=== PATIENT | female | born 1940 | race Caucasian/White ===

== ENCOUNTER 2020-11-02 15:52 | Outpatient (RCR) | payer MEDICARE, OTHER, SELFPAY | END 2020-11-02 23:59 | LOC: IMMUN 15:52 | PROVIDERS: PCP Family Medicine; Referring Provider Family Medicine; Visit Provider Family Medicine | DX: Z23 Encounter for immunization (principal) | CPT/HCPCS: 0011A; 0012A; 91301 ==

== ENCOUNTER 2021-07-09 13:05 | Inpatient (IN) | payer MEDICARE, OTHER, SELFPAY ==
[2021-07-09] VITALS (9 sets, daily range): BP systolic 130–173; BP diastolic 63–96; PULSE 62–93; RESP 14–20; TEMP 36.7–36.8; O2SAT 93–98; BMI 40.4; BMI 42.2
--- NOTE | 2021-07-09 14:29 | EKG12_ITS ---
Test Reason : BLOODY STOOL Blood Pressure : / mmHG Vent. Rate : 081 BPM Atrial Rate : 300 BPM P-R Int : 000 ms QRS Dur : 106 ms QT Int : 400 ms P-R-T Axes : 000 100 018 degrees QTc Int : 464 ms Atrial fibrillation Nonspecific ST abnormality , probably digitalis effect Abnormal ECG Confirmed by AMADOR MENDOZA, VINICIUS ([id number]), newspaper managing editor TAVO WINTER ([id number]) on 07/15/2021 9:46:14 A M Referred By: SOPHIE Confirmed By:NARDA ENGLISH MD
--- NOTE | 2021-07-09 14:29 | CT_ITS ---
STUDY: CT ABDOMEN AND PELVIS WITH CONTRAST REASON FOR EXAM: Female, 81 years old. Abdominal pain -- IV PO Contrast RADIATION DOSAGE (If Supplied By Facility): CTDIvol = ( 17.47 ) mGy, DLP = ( 1155.71 ) mGycm TECHNIQUE: Transaxial images were obtained from the dome of the diaphragm to the symphysis pubis with oral contrast. Oral and amp; IV Gastrografin and amp; 100mL Isovue-370 was administered. Sagittal and coronal images were reconstructed. Individualized dose optimization techniques were used for this CT. COMPARISON: None. FINDINGS: Lung bases are clear. Heart size is normal. 6 mm low-attenuation lesion in the right lobe of the liver. This is too small to characterize. The liver is otherwise unremarkable. The gallbladder is surgically absent. Solitary splenic granuloma. The spleen is otherwise unremarkable. Pancreas is unremarkable. The adrenal glands are normal. 1.1 cm right renal lesion, not adequately characterized due to motion artifact. The kidneys are otherwise unremarkable. No stones or hydronephrosis. The aorta is normal in caliber. There is no free fluid, free air or organized collection. No bowel obstruction or inflammatory change. Urinary bladder is unremarkable. Normal abdominal wall. Normal osseous structures. CT/Abdomen/Pelvis WITH Contrast IMPRESSION: 1. No acute findings. 2. Hepatic hypodensity too small to characterize. 3. Old granulomatous disease. Electronically Signed: Jing Sousa MD at 17:24 EDT Tel , Service support ,
--- NOTE | 2021-07-09 14:36 | ED.VIS.GI ---
HPI HPI - GI History of Present Illness Chief Complaint: GI Bleed Informant: patient Abdominal Pain/Flank Pain Onset: Yesterday Context: Gradual Onset Timing: Intermittent Quality: Cramping Location: Diffuse Worsened by: Nothing Relieved by: Nothing Nausea/Vomiting/Emesis GI Symptom: Positive for Nausea; Negative for Vomiting Onset: Yesterday Diarrhea/Melena/Hematochezia GI Symptom: Positive for Diarrhea, Melena and Hematochezia Onset: Yesterday Stool Quality: Positive for Black and BRB per rectum Episodes: 8 Associated Symptoms Associated Symptoms: Negative for Dysuria, Frequency and Hematuria Narrative Narrative: Presents with gastrointestinal bleeding that began yesterday. Patient states she started with black stools yesterday. Patient states today they have been become more bright red. Patient states she has had 7-8 episodes today. Patient admits to some nausea and a decreased appetite. Patient admits to some mild diffuse cramping of her abdomen. Patient states it is intermittent. Patient states it does not last very long. Patient states nothing makes it better and nothing makes it worse. Patient denies any urinary complaints. Patient denies any back pain. Patient denies any chest pain or shortness of breath. [facility] Medical History (Updated 07/09/21 @ 17:[address] Roddy Kennedy, DO) Adrenal adenoma Atrial fibrillation Chronic anticoagulation BELLE (dyspnea on exertion) GERD (gastroesophageal reflux disease) Hyperlipidemia Hypertension RAVEN (obstructive sleep apnea) Osteoarthritis Pulmonary HTN Recurrent UTI Home Medications ascorbic acid (vitamin C) 500 mg PO DAILY 07/09/21 [History Last Taken 07/09/21] cholecalciferol (vitamin D3) 125 mcg PO DAILY 07/09/21 [History Last Taken 07/09/21] cranberry 400 mg PO DAILY 07/09/21 [History Last Taken 07/09/21] diltiazem HCl 120 mg PO BID 07/09/21 [History Last Taken 07/09/21] furosemide 40 mg PO DAILY 07/09/21 [History Last Taken 07/09/21] losartan 25 mg PO DAILY 07/09/21 [History Last Taken 07/09/21] metoprolol tartrate 100 mg PO DAILY 07/09/21 [History Last Taken 07/09/21] multivitamin 1 tab PO DAILY 07/09/21 [History Last Taken 07/09/21] pantoprazole 40 mg PO DAILY 07/09/21 [History Last Taken 07/09/21] rivaroxaban [Xarelto] 20 mg PO DINNER 07/09/21 [History Last Taken 07/08/21] spironolactone 25 mg PO DAILY 07/09/21 [History Last Taken 07/09/21] Allergy/AdvReac Type Severity Reaction Status Date / Time No Known Allergies Allergy Verified 07/09/21 13:09 Family History Father Irregular heart rhythm Mother Alzheimer's dementia Surgical History (Updated 07/09/21 @ 17:30 by Kyaw PENNINGTON) Aortic valve replaced H/O section H/O total knee replacement Status post right knee replacement Social History (Updated 07/09/21 @ 17:31 by Kyaw PENNINGTON) household members: spouse Smoking Status: Never smoker alcohol intake: never substance use type: does not use ROS ROS ED Constitutional Constitutional ED: Denies chills or fever(s) Eyes Eyes: Denies blurry vision or change in vision ENT ENT ED: Denies rhinorrhea or sore throat Cardiovascular Cardiovascular: Denies chest pain or palpitations Respiratory/Chest Respiratory/Chest: Denies cough or dyspnea Gastrointestinal Gastrointestinal: Reports abdominal pain, diarrhea, melena and nausea; Denies vomiting Genitourinary Genitourinary ED: Denies dysuria or hematuria Musculoskeletal Musculoskeletal: Denies back pain or neck pain Integumentary Denies abscess or rash Neurologic Neurologic: Denies headache(s) or weakness Allergic/Immunologic Allergic/Immunologic ED: Denies mouth swelling or urticaria EXAM Physical Exam Const Vital Signs: 07/09/21 13:06 07/09/21 14:22 07/09/21 16:00 Temperature 98.1 F Temperature Source Temporal Pulse Rate 62 72 85 Respiratory Rate 20 H 19 H 20 H Blood Pressure 136/83 H 149/84 H Blood Pressure Mean 100 105 Pulse Ox 98 96 95 Oxygen Delivery Method Room Air Room Air Room Air Positive well nourished, well developed and obese General Appearance ED: well developed Nutritional Appearance: obese HEENT Reports moist mucous membranes Neck supple and no JVD Resp normal respiratory effort and clear to auscultation bilaterally Cardio regular rate and no murmurs Rhythm: abnormal rhythm irregularly irregular GI normal to inspection, nondistended, normoactive bowel sounds Palpation: soft and tender epigastric and RUQ; Negative for guarding or rebound tenderness present Extremity normal to inspection General Extremety ED: Negative for edema or tenderness General Extremity: Negative for edema Neuro oriented x3, CN's II-XII intact bilaterally and no sensory deficits noted Sensorium / Orientation: alert Motor Exam: strength 5/5 throughout Psych mental status grossly normal Skin no rashes or lesions noted MDM MDM MDM Narrative Medical decision making narrative: Patient was given Zofran here. EKG was obtained. On my interpretation, it shows atrial fibrillation with a rate of 81. QRS interval and QTc intervals are normal. [place] is normal. There are nonspecific ST-T wave changes in lead III and V1. CBC shows a hemoglobin of 11.5 and hematocrit 35.9. Platelets were normal. Comprehensive metabolic profile showed a slightly elevated BUN of 20. Urinalysis does not show any evidence of urinary tract infection. CT scan of the abdomen and pelvis was obtained. There are no acute findings. There is a small hepatic hypodensity that is too small to characterize and old granulomatous disease. This was interpreted by the radiologist and reviewed by myself. Case was discussed with the hospitalist. She will admit the patient to her service. Patient understood and was agreeable with the plan. All questions were answered. Lab Data Attestation: I reviewed the patient's lab results. Labs: Laboratory Results - last 24 hr 07/09/21 07/09/21 07/09/21 13:44 13:44 14:23 WBC 10.2 RBC 3.78 L Hgb 11.5 L Hct 35.9 L MCV 95.0 MCH 30.4 MCHC 32.0 RDW Std Deviation 46.9 H RDW Coeff of Madeleine 13.5 Plt Count 331 MPV 9.9 Immature Gran % (Auto) 0.500 Neut % (Auto) 76.8 H Lymph % (Auto) 12.3 L [place] % (Auto) 8.2 Eos % (Auto) 1.3 Baso % (Auto) 0.9 Absolute Neuts (auto) 7.8 H Absolute Lymphs (auto) 1.25 Nucleated RBC % 0 Sodium Cancelled 140 Potassium Cancelled 4.0 Chloride Cancelled 104 Carbon Dioxide Cancelled 31.0 Anion Gap Cancelled 5 BUN Cancelled 20 H Creatinine Cancelled 0.98 Estim Creat Clear Calc Cancelled 64.48 Est GFR (MDRD) Af Amer Cancelled 70 Est GFR (MDRD) Non-Af Cancelled 58 L BUN/Creatinine Ratio Cancelled 20.5 H Glucose Cancelled 100 Calcium Cancelled 9.2 Total Bilirubin Cancelled 0.70 AST Cancelled 22 ALT Cancelled 15 Alkaline Phosphatase Cancelled 106 Total Protein Cancelled 7.4 Albumin Cancelled 3.3 Globulin Cancelled 4.1 Albumin/Globulin Ratio Cancelled 0.8 L Urine Color Urine Clarity Urine pH Ur Specific [place] Urine Protein Urine Glucose (UA) Urine Ketones Urine Occult Blood Urine Nitrite Urine Bilirubin Urine Urobilinogen Ur Leukocyte Esterase Urine RBC Urine WBC Ur Squamous Epith Cells Urine Bacteria Urine Mucus 07/09/21 15:10 WBC RBC Hgb Hct MCV MCH MCHC RDW Std Deviation RDW Coeff of Madeleine Plt Count MPV Immature Gran % (Auto) Neut % (Auto) Lymph % (Auto) [place] % (Auto) Eos % (Auto) Baso % (Auto) Absolute Neuts (auto) Absolute Lymphs (auto) Nucleated RBC % Sodium Potassium Chloride Carbon Dioxide Anion Gap BUN Creatinine Estim Creat Clear Calc Est GFR (MDRD) Af Amer Est GFR (MDRD) Non-Af BUN/Creatinine Ratio Glucose Calcium Total Bilirubin AST ALT Alkaline Phosphatase Total Protein Albumin Globulin Albumin/Globulin Ratio Urine Color Yellow Urine Clarity Sl. Cloudy Urine pH 6.5 Ur Specific [place] 1.010 Urine Protein 15 H Urine Glucose (UA) Normal Urine Ketones 5 H Urine Occult Blood 25 H Urine Nitrite Negative Urine Bilirubin Negative Urine Urobilinogen Normal Ur Leukocyte Esterase Negative Urine RBC 0-5 SEEN Urine WBC 0 SEEN Ur Squamous Epith Cells 0-5 SEEN Urine Bacteria 1+ Urine Mucus 0 SEEN Radiography Diagnostic Testing: Radiology Impression Abdomen/Pelvis CT 07/09/21 14:29 IMPRESSION: 1. No acute findings. 2. Hepatic hypodensity too small to characterize. 3. Old granulomatous disease. Electronically Signed: Jing Sousa MD at 17:24 EDT Tel , Service support , EKG Initial EKG: Attestation: I personally reviewed and interpreted this EKG as follows: Interpretation: Atrial Fibrillation (81) and Non-Specific ST Changes Prior EKG tracings: not available for review Treatment and Re-Evaluation Vital Sign Attestation:: Vital signs were reviewed prior to admission. They are stable. Discharge Plan Triage Chief Complaint: GI Bleed Other Complaint: Diarrhea ED Provider: Roddy Kennedy Dx/Rx/DC Orders Clinical Impression: GI bleed, Atrial fibrillation Prescriptions: No Action metoprolol tartrate 100 mg tablet 100 mg PO DAILY RF: 0 spironolactone 25 mg tablet 25 mg PO DAILY RF: 0 pantoprazole 40 mg tablet,delayed release (DR/EC) 40 mg PO DAILY RF: 0 losartan 25 mg tablet 25 mg PO DAILY RF: 0 cranberry 400 mg Capsule 400 mg PO DAILY RF: 0 diltiazem HCl 120 mg capsule,extended release 24hr 120 mg PO BID RF: 0 furosemide 20 mg tablet 40 mg PO DAILY RF: 0 cholecalciferol (vitamin D3) 125 mcg (5,000 unit) capsule 125 mcg PO DAILY RF: 0 Xarelto 20 mg tablet 20 mg PO DINNER RF: 0 multivitamin Tablet 1 tab PO DAILY RF: 0 ascorbic acid (vitamin C) 500 mg Tablet 500 mg PO DAILY RF: 0 Primary Care Provider: Tucker Staples Referrals: Tucker Staples MD [Primary Care Provider] - Disposition Disposition: Acute Care Hospital [facility], [place]
[2021-07-09 14:38] LABS: Absolute Lymphocyte Count 1.25 X10^3/uL (0.83-4.51); Absolute Neutrophil Count 7.8 X10^3/uL (2.0-7.7); Basophil# 0.09 X10^3/uL; Basophil% 0.9 % (0-1); Eosinophil# 0.13 X10^3/uL; Eosinophils% 1.3 % (0-5); Hematocrit 35.9 % (37-47); Hemoglobin 11.5 g/dL (12.0-15.0); Lymphocyte # 1.25 X10^3/ul (0.83-4.51); Lymphocyte % 12.3 % (19-41); Mean Corpuscular Hgb 30.4 pg (27.0-32.0); Mean Platelet Vol. 9.9 fl (6.2-12.0); Monocyte# 0.84 X10^3/uL; Monocyte% 8.2 % (0-10); NRBC Flagged by Analyzer 0 % (0-5); Neutrophil # 7.84 X10^3/uL (2.7-7.7); Neutrophil % 76.8 % (47-70); Platelet Count 331 K/mm3 (150-450); RBC Distribution Width CV 13.5 % (11.6-14.6); RBC Distribution Width SD 46.9 fl (35.1-43.9); Red Blood Count 3.78 M/mm3 (4.2-5.4); White Blood Count 10.2 K/mm3 (4.4-11.0)
--- NOTE | 2021-07-09 14:39 | NURSING ---
NO OLD EKGS
--- NOTE | 2021-07-09 14:41 | NURSING ---
CHEMISTRIES HEMOLIZED
[2021-07-09] MEDS: Ondansetron 4 MG/2 ML Vial IV (14:48)
[2021-07-09 15:05] LABS: ALB/GLOB Ratio 0.8 RATIO (0.9-2.4); AST(SGOT) 22 U/L (15-37); Alanine Aminotransfer ALT/SGPT 15 U/L (13-56); Albumin, Serum 3.3 g/dL (3.2-5.0); Alkaline Phosphatase 106 U/L (45-117); Anion Gap 5 (5-15); BUN 20 mg/dL (7-18); BUN/Creat Ratio 20.5 RATIO (10-20); Calcium,Total 9.2 mg/dL (8.5-10.1); Chloride 104 mmol/L (98-107); Creatinine, Serum 0.98 mg/dL (0.55-1.02); EST Glomerular Filtration Rate 58 mL/min (>60); Est Glom Filt Rate - Afr Amer 70 mL/min (>60); Estimated Creatinine Clearance 64.48 ml/min; Globulin 4.1 g/dL (2.2-4.2); Glucose 100 mg/dL (74-106); Protein, Total 7.4 g/dL (6.4-8.2); Sodium Level 140 mmol/L (136-145)
[2021-07-09 15:18] LABS: Mucous, Urine 0 SEEN /hpf (<or=2+); White Blood Cells 0 SEEN /hpf (0-5)
[2021-07-09 15:21] LABS: Color, Urine Yellow (Yellow); Glucose, Dipstick Normal (Normal); Ketone-Dipstick 5 mg/dl (Negative); Leukocyte Esterase-Dipstick Negative /ul (Negative); Nitrite-Dipstick Negative (Negative); Occult Blood-Urine 25 /ul (Negative); Protein-Dipstick 15 mg/dl (Negative); Urine Bilirubin Dipstick Negative (Negative); Urine Clarity Sl. Cloudy (Clear); Urine Urobilinogen Normal (Normal); Urine pH 6.5 (5.0 - 8.0)
[2021-07-09 15:27] LABS: Bacteria 1+ /hpf (None Seen); Red Blood Cells-Urine 0-5 SEEN /hpf (0-5); Squamous Epithelial Cells - UA 0-5 SEEN /hpf (5-10)
--- NOTE | 2021-07-09 17:20 | PCM.HP.STD ---
Documented by User: Kyaw PENNINGTON 07/09/21 17:51 HPI - General General Date of Service: 07/09/21 Chief Complaint: Blood bowel movements HPI Narrative JAGDEEP WHYTE is an 81-year-old female who presents to the ED at [facility] on 07/09/2021 with a chief complaint of bloody bowel movements. Patient reports that her symptoms began yesterday where she noted that she had about 3-4 bloody bowel movements. Patient reports dark tarry stools and bright red blood per rectum. Patient notes that she had about 3-4 bloody bowel movements of the same consistency today. Patient denies any prior history of bloody bowel movements. Patient denies any alleviating or aggravating symptoms. Patient denies any hematemesis, chest pain or shortness of breath. Of note, patient recently returned from a bus tour of the [facility] where they were traveling by bus and staying in hotel. Denies camping, backpacking or drinking from streams. Vital signs in the ED are BP 149/84, HR of 85, RR of 20 and is currently satting 95% on room air. WBCs are currently 10, hemoglobin is currently 11.5 and platelets are currently 331. BMP is unremarkable. UA is unremarkable. CT of the abdomen/pelvis demonstrated no acute findings. Patient was given Zofran in the ED. [facility] Medical History Adrenal adenoma Atrial fibrillation Chronic anticoagulation BELLE (dyspnea on exertion) GERD (gastroesophageal reflux disease) Hyperlipidemia Hypertension RAVEN (obstructive sleep apnea) Osteoarthritis Pulmonary HTN Recurrent UTI Home Medications ascorbic acid (vitamin C) 500 mg PO DAILY 07/09/21 [History Last Taken 07/09/21] cholecalciferol (vitamin D3) 125 mcg PO DAILY 07/09/21 [History Last Taken 07/09/21] cranberry 400 mg PO DAILY 07/09/21 [History Last Taken 07/09/21] diltiazem HCl 120 mg PO BID 07/09/21 [History Last Taken 07/09/21] furosemide 40 mg PO DAILY 07/09/21 [History Last Taken 07/09/21] losartan 25 mg PO DAILY 07/09/21 [History Last Taken 07/09/21] metoprolol tartrate 100 mg PO DAILY 07/09/21 [History Last Taken 07/09/21] multivitamin 1 tab PO DAILY 07/09/21 [History Last Taken 07/09/21] pantoprazole 40 mg PO DAILY 07/09/21 [History Last Taken 07/09/21] rivaroxaban [Xarelto] 20 mg PO DINNER 07/09/21 [History Last Taken 07/08/21] spironolactone 25 mg PO DAILY 07/09/21 [History Last Taken 07/09/21] Allergy/AdvReac Type Severity Reaction Status Date / Time No Known Allergies Allergy Verified 07/09/21 13:09 Family History Father Irregular heart rhythm Mother Alzheimer's dementia Surgical History Aortic valve replaced H/O section H/O total knee replacement Status post right knee replacement Social History (Updated 07/09/21 @ 17:31 by Kyaw PENNINGTON) household members: spouse Smoking Status: Never smoker alcohol intake: never substance use type: does not use ROS Constitutional Constitutional: Denies anorexia, change in weight, chills, fatigue, fever(s), malaise, night sweats, weakness or other Eyes Eyes: Denies blurry vision, change in eye color, change in vision, discharge from eye(s), double vision, erythema, eye pain, loss of vision or other ENT HEENT: Denies abnormal hearing, dysphagia, ear pain, epistaxis, headache(s), hearing loss, nasal congestion, nasal discharge, post nasal drip, sinus pressure, sore throat or other Cardiovascular Cardiovascular: Denies chest pain, claudication, dyspnea on exertion, edema, lightheadedness, orthopnea, palpitations, paroxysmal nocturnal dyspnea, rapid heart rate, syncope or other Respiratory/Chest Respiratory/Chest: Denies cough, dyspnea, excessive phlegm production, hemoptysis, productive cough, shortness of breath at rest, shortness of breath with exertion, wheezing or other Gastrointestinal Gastrointestinal: Reports diarrhea, hematochezia, melena and nausea; Denies abdominal pain, coffee ground emesis, constipation, dyspepsia, hematemesis, loose stools, vomiting or other Genitourinary Genitourinary: Denies burning urination, difficulty urinating, dysuria, hematuria, nocturia, urinary frequency, urinary hesitancy, urinary incontinence, urinary urgency or other Musculoskeletal Musculoskeletal: Denies arthralgias, back pain, joint pain, joint stiffness, joint swelling, myalgias, neck pain or other Neurologic Neurologic: Denies abnormal gait, abnormal speech, confusion, disequilibrium, dizziness, focal weakness, headache(s), numbness, paresthesias, seizure-like activity, seizures, syncope, tingling, tremor(s) or other Psychiatric Psychiatric: Denies anxiety, depression, homicidal ideation, suicidal ideation or other Endocrine Endocrinology: Denies change in body appearance, cold intolerance, excessive sweating, heat intolerance, polydipsia, polyuria or other Hematologic/Lymphatic Hematologic/Lymphatic: Denies anemia, easy bleeding, easy bruising, lymphadenopathy or other Allergic/Immunologic Allergic/Immunologic: Denies rhinitis, hives, eczemia, asthma or other Vital Signs Vital Signs Vital Signs: 07/09/21 13:06 07/09/21 14:22 07/09/21 16:00 Temperature 98.1 F Temperature Source Temporal Pulse Rate 62 72 85 Respiratory Rate 20 H 19 H 20 H Blood Pressure 136/83 H 149/84 H Blood Pressure Mean 100 105 Pulse Ox 98 96 95 Oxygen Delivery Method Room Air Room Air Room Air Weight Weight: 200 lb Body Mass Index (BMI) 40.4 Physical Exam Const alert and oriented x3 General Appearance: cooperative HEENT normocephalic, head/scalp atraumatic and hearing grossly normal bilaterally Eyes PERRL, EOMs intact bilaterally and conjunctivae normal Neck no lymphadenopathy, supple and no JVD Resp normal respiratory effort, no retractions, no use of accessory muscles and clear to auscultation bilaterally Cardio regular rate, regular rhythm, no murmurs and no JVD GI normal to inspection, nondistended, normoactive bowel sounds, soft to palpation and non-tender Extremity normal to inspection, full ROM and no clubbing, cyanosis or edema Skin no rashes or lesions noted, no wounds, skin turgor normal and no jaundice Neuro CN's II-XII intact bilaterally Psych affect normal Results Lab / Micro Data Result Diagrams: 07/09/21 13:44 07/09/21 14:23 Labs: Laboratory Results - last 24 hr 07/09/21 13:44: WBC 10.2, RBC 3.78 L, Hgb 11.5 L, Hct 35.9 L, MCV 95.0, MCH 30.4, MCHC 32.0, RDW Std Deviation 46.9 H, RDW Coeff of Madeleine 13.5, Plt Count 331, MPV 9.9, Immature Gran % (Auto) 0.500, Neut % (Auto) 76.8 H, Lymph % (Auto) 12.3 L, [place] % (Auto) 8.2, Eos % (Auto) 1.3, Baso % (Auto) 0.9, Absolute Neuts (auto) 7.8 H, Absolute Lymphs (auto) 1.25, Nucleated RBC % 0 07/09/21 13:44: Sodium Cancelled, Potassium Cancelled, Chloride Cancelled, Carbon Dioxide Cancelled, Anion Gap Cancelled, BUN Cancelled, Creatinine Cancelled, Estim Creat Clear Calc Cancelled, Est GFR (MDRD) Af Amer Cancelled, Est GFR (MDRD) Non-Af Cancelled, BUN/Creatinine Ratio Cancelled, Glucose Cancelled, Calcium Cancelled, Total Bilirubin Cancelled, AST Cancelled, ALT Cancelled, Alkaline Phosphatase Cancelled, Total Protein Cancelled, Albumin Cancelled, Globulin Cancelled, Albumin/Globulin Ratio Cancelled 07/09/21 14:23: Sodium 140, Potassium 4.0, Chloride 104, Carbon Dioxide 31.0, Anion Gap 5, BUN 20 H, Creatinine 0.98, Estim Creat Clear Calc 64.48, Est GFR (MDRD) Af Amer 70, Est GFR (MDRD) Non-Af 58 L, BUN/Creatinine Ratio 20.5 H, Glucose 100, Calcium 9.2, Total Bilirubin 0.70, AST 22, ALT 15, Alkaline Phosphatase 106, Total Protein 7.4, Albumin 3.3, Globulin 4.1, Albumin/Globulin Ratio 0.8 L 07/09/21 15:10: Urine Color Yellow, Urine Clarity Sl. Cloudy, Urine pH 6.5, Ur Specific [place] 1.010, Urine Protein 15 H, Urine Glucose (UA) Normal, Urine Ketones 5 H, Urine Occult Blood 25 H, Urine Nitrite Negative, Urine Bilirubin Negative, Urine Urobilinogen Normal, Ur Leukocyte Esterase Negative, Urine RBC 0-5 SEEN, Urine WBC 0 SEEN, Ur Squamous Epith Cells 0-5 SEEN, Urine Bacteria 1+, Urine Mucus 0 SEEN Assessment & Plan Assessment/Plan (1) GI bleed: PLAN: Patient is an 81-year-old female who presents to the ED at [facility] on 07/09/21 with a chief complaint of bloody bowel movements. Patient will be admitted for suspected lower GI bleed. 1) GI bleed Patient presents with a 2-day history of bloody bowel movements, patient reports between the past 2 days she has had between 8 and 10 bloody bowel movements. Denies any history of upper or lower GI bleeds. Patient reports that she had an endoscopy 15 years ago which did not find anything. Patient's vital signs are stable and patient does not appear hemodynamically compromised. Hemoglobin is 11.5, no prior history to compare to. CT of the abdomen/pelvis was unremarkable. Plan; admit to [facility], GI consult ordered, clear liquid diet ordered, CBC and BMP in a.m., serial H&H's, PT/OT eval, case management consult ordered, no endoscopy at this time, stool panel ordered. 2) atrial fibrillation Patient is on diltiazem and metoprolol for rate control. Anticoagulated on Xarelto. Continue diltiazem and metoprolol, hold Xarelto. 3) CHF, unclear whether systolic or diastolic Not in acute exacerbation, currently satting 95% on room air. Patient is on metoprolol, losartan and Lasix. Continue home BP regimen. 4) HTN Continue metoprolol, losartan, Lasix and spironolactone. Hold parameters ordered DVT prophylaxis - not indicated Patient seen by Kyaw Sánchez PA-C, under the supervision of Dr. Leavitt Documented by User: Dr. Veronica Leavitt MD 07/09/21 20:06 HPI - General General Date of Admission: 07/09/21 [facility] Medical History Adrenal adenoma Atrial fibrillation Chronic anticoagulation BELLE (dyspnea on exertion) GERD (gastroesophageal reflux disease) Hyperlipidemia Hypertension RAVEN (obstructive sleep apnea) Osteoarthritis Pulmonary HTN Recurrent UTI Home Medications ascorbic acid (vitamin C) 500 mg PO DAILY 07/09/21 [History Last Taken 07/09/21] cholecalciferol (vitamin D3) 125 mcg PO DAILY 07/09/21 [History Last Taken 07/09/21] cranberry 400 mg PO DAILY 07/09/21 [History Last Taken 07/09/21] diltiazem HCl 120 mg PO BID 07/09/21 [History Last Taken 07/09/21] furosemide 40 mg PO DAILY 07/09/21 [History Last Taken 07/09/21] losartan 25 mg PO DAILY 07/09/21 [History Last Taken 07/09/21] metoprolol tartrate 100 mg PO DAILY 07/09/21 [History Last Taken 07/09/21] multivitamin 1 tab PO DAILY 07/09/21 [History Last Taken 07/09/21] pantoprazole 40 mg PO DAILY 07/09/21 [History Last Taken 07/09/21] rivaroxaban [Xarelto] 20 mg PO DINNER 07/09/21 [History Last Taken 07/08/21] spironolactone 25 mg PO DAILY 07/09/21 [History Last Taken 07/09/21] Allergy/AdvReac Type Severity Reaction Status Date / Time No Known Allergies Allergy Verified 07/09/21 13:09 Family History Father Irregular heart rhythm Mother Alzheimer's dementia Surgical History Aortic valve replaced H/O section H/O total knee replacement Status post right knee replacement Social History (Updated 07/09/21 @ 17:31 by Kyaw PENNINGTON) household members: spouse Smoking Status: Never smoker alcohol intake: never substance use type: does not use Results Lab / Micro Data Result Diagrams: 07/09/21 13:44 07/09/21 14:23
--- NOTE | 2021-07-09 17:58 | EX.PCM.CON.G ---
HPI Consult Data Date of Consult: 07/09/21 HPI Narrative HPI Narrative: JAGDEEP WHYTE, is a 81 F who presents with gastrointestinal bleeding that began yesterday. Patient states she started with black stools yesterday. Patient states today they have been become more bright red. Patient states she has had 7-8 episodes today. Patient admits to some nausea and a decreased appetite. She has a history of atrial fibrillation and takes Xarelto therapy. She also takes vitamin C on a daily basis. She has had a normal colonoscopy in the past. She has no personal history of adenomatous polyps. Patient admits to some mild diffuse cramping of her abdomen. Patient states it is intermittent. Patient states it does not last very long. Patient states nothing makes it better and nothing makes it worse. Patient denies any urinary complaints. Patient denies any back pain. Patient denies any chest pain or shortness of breath. Her hemoglobin was 11.5 on admission. She had a CT scan abdomen pelvis. The findings are: 6 mm low-attenuation lesion in the right lobe of the liver. This is too small to characterize. The liver is otherwise unremarkable. The gallbladder is surgically absent. Solitary splenic granuloma. The spleen is otherwise unremarkable. Pancreas is unremarkable. The adrenal glands are normal. 1.1 cm right renal lesion, not adequately characterized due to motion artifact. The kidneys are otherwise unremarkable. No stones or hydronephrosis. The aorta is normal in caliber. There is no free fluid, free air or organized collection. No bowel obstruction or inflammatory change. Urinary bladder is unremarkable. Normal abdominal wall. Normal osseous structures. . [facility] Medical History (Updated 07/09/21 @ 17:[address] Roddy Kennedy, DO) Adrenal adenoma Atrial fibrillation Chronic anticoagulation BELLE (dyspnea on exertion) GERD (gastroesophageal reflux disease) Hyperlipidemia Hypertension RAVEN (obstructive sleep apnea) Osteoarthritis Pulmonary HTN Recurrent UTI Home Medications ascorbic acid (vitamin C) 500 mg PO DAILY 07/09/21 [History Last Taken 07/09/21] cholecalciferol (vitamin D3) 125 mcg PO DAILY 07/09/21 [History Last Taken 07/09/21] cranberry 400 mg PO DAILY 07/09/21 [History Last Taken 07/09/21] diltiazem HCl 120 mg PO BID 07/09/21 [History Last Taken 07/09/21] furosemide 40 mg PO DAILY 07/09/21 [History Last Taken 07/09/21] losartan 25 mg PO DAILY 07/09/21 [History Last Taken 07/09/21] metoprolol tartrate 100 mg PO DAILY 07/09/21 [History Last Taken 07/09/21] multivitamin 1 tab PO DAILY 07/09/21 [History Last Taken 07/09/21] pantoprazole 40 mg PO DAILY 07/09/21 [History Last Taken 07/09/21] rivaroxaban [Xarelto] 20 mg PO DINNER 07/09/21 [History Last Taken 07/08/21] spironolactone 25 mg PO DAILY 07/09/21 [History Last Taken 07/09/21] Allergy/AdvReac Type Severity Reaction Status Date / Time No Known Allergies Allergy Verified 07/09/21 13:09 Family History Father Irregular heart rhythm Mother Alzheimer's dementia Surgical History (Updated 07/09/21 @ 17:30 by Kyaw PENNINGTON) Aortic valve replaced H/O section H/O total knee replacement Status post right knee replacement Social History (Updated 07/09/21 @ 17:31 by Kyaw PENNINGTON) household members: spouse Smoking Status: Never smoker alcohol intake: never substance use type: does not use ROS Review of Systems ROS Unobtainable: other Constitutional Constitutional: Denies fatigue, fever(s), poor appetite, weight gain or weight loss ENT HEENT: Denies mouth lesions Cardiovascular Cardiovascular: Denies abdominal bloating, abdominal edema or abdominal pain Respiratory/Chest Respiratory/Chest: Denies change in mental status, change in phlegm color, chest congestion or chest tightness Gastrointestinal Gastrointestinal: Denies belching, bloating, change in bowel habits, change in stool character, chewing difficulty, coffee ground emesis, constipation, cramping, diarrhea, dyspepsia, dysphagia, early satiety, excessive flatus, fecal incontinence, heartburn, hematemesis, hematochezia, hemorrhoids, loose stools, melena, nausea, odynophagia, rectal bleeding, tenesmus, vomiting or weight changes Genitourinary Genitourinary: Denies abdominal discomfort, burning urination or itching Musculoskeletal Musculoskeletal: Reports as per HPI; Denies muscle weakness or myalgias Integumentary Integumentary: Denies jaundice Neurologic Neurologic: Denies lack of coordination or weakness Psychiatric Psychiatric: Denies confusion, depression, memory loss, mood swings, paranoia or suicidal ideation Endocrine Endocrinology: Denies systems reviewed and no addt'l complaints, except as documented Hematologic/Lymphatic Hematologic/Lymphatic: Denies anemia, easy bleeding, easy bruising or lymphadenopathy Allergic/Immunologic Allergic/Immunologic: Denies systems reviewed and no addt'l complaints, except as documented Physical Exam Const alert General Appearance: cooperative Orientation / Consciousness: oriented to person HEENT hearing grossly normal bilaterally Head and Scalp: normal to inspection Face and Sinus: face symmetric Nose: external nose normal Mouth: oral and palatal mucosa normal Eyes conjunctivae normal General Eye: normal appearance of both eyes Neck full ROM General: normal visual inspection Lymph Lymphatic: no lymphadenopathy noted Chest inspection of chest normal and palpation of chest normal Chest: symmetrical chest wall rise Resp normal respiratory effort Effort and Inspection: able to speak in complete sentences Cardio regular rate GI non-distended Percussion: normal to percussion Rectal Exam: deferred Neuro Speech: speech normal Gait (Neuro): normal gait Lab / Micro Data Result Diagrams: 07/09/21 13:44 07/09/21 14:23 Labs: Laboratory Results - last 24 hr 07/09/21 13:44: WBC 10.2, RBC 3.78 L, Hgb 11.5 L, Hct 35.9 L, MCV 95.0, MCH 30.4, MCHC 32.0, RDW Std Deviation 46.9 H, RDW Coeff of Madeleine 13.5, Plt Count 331, MPV 9.9, Immature Gran % (Auto) 0.500, Neut % (Auto) 76.8 H, Lymph % (Auto) 12.3 L, [place] % (Auto) 8.2, Eos % (Auto) 1.3, Baso % (Auto) 0.9, Absolute Neuts (auto) 7.8 H, Absolute Lymphs (auto) 1.25, Nucleated RBC % 0 07/09/21 13:44: Sodium Cancelled, Potassium Cancelled, Chloride Cancelled, Carbon Dioxide Cancelled, Anion Gap Cancelled, BUN Cancelled, Creatinine Cancelled, Estim Creat Clear Calc Cancelled, Est GFR (MDRD) Af Amer Cancelled, Est GFR (MDRD) Non-Af Cancelled, BUN/Creatinine Ratio Cancelled, Glucose Cancelled, Calcium Cancelled, Total Bilirubin Cancelled, AST Cancelled, ALT Cancelled, Alkaline Phosphatase Cancelled, Total Protein Cancelled, Albumin Cancelled, Globulin Cancelled, Albumin/Globulin Ratio Cancelled 07/09/21 14:23: Sodium 140, Potassium 4.0, Chloride 104, Carbon Dioxide 31.0, Anion Gap 5, BUN 20 H, Creatinine 0.98, Estim Creat Clear Calc 64.48, Est GFR (MDRD) Af Amer 70, Est GFR (MDRD) Non-Af 58 L, BUN/Creatinine Ratio 20.5 H, Glucose 100, Calcium 9.2, Total Bilirubin 0.70, AST 22, ALT 15, Alkaline Phosphatase 106, Total Protein 7.4, Albumin 3.3, Globulin 4.1, Albumin/Globulin Ratio 0.8 L 07/09/21 15:10: Urine Color Yellow, Urine Clarity Sl. Cloudy, Urine pH 6.5, Ur Specific [place] 1.010, Urine Protein 15 H, Urine Glucose (UA) Normal, Urine Ketones 5 H, Urine Occult Blood 25 H, Urine Nitrite Negative, Urine Bilirubin Negative, Urine Urobilinogen Normal, Ur Leukocyte Esterase Negative, Urine RBC 0-5 SEEN, Urine WBC 0 SEEN, Ur Squamous Epith Cells 0-5 SEEN, Urine Bacteria 1+, Urine Mucus 0 SEEN Radiology Impression Abdomen/Pelvis CT 07/09/21 14:29 IMPRESSION: 1. No acute findings. 2. Hepatic hypodensity too small to characterize. 3. Old granulomatous disease. Electronically Signed: Jing Sousa MD at 17:24 EDT Tel , Service support , Assessment & Plan Assessment/Plan (1) GI bleed: PLAN: The differential diagnosis for lower GI bleed in a older woman would be diverticular, stercoral ulcer, ischemic colitis and less likely upper GI bleed rapid transit. She should get CBCs or H&H's every 6 hours. I would hold her Xarelto. If she does continue to drop she may need a flexible sigmoidoscopy. As of now she seems to be clinically stable. She will be observed. Recommend SCDs for DVT prophylaxis. I will continue to follow the patient. Thank you very much for allowing me to precipitate in care of patient. (2) Atrial fibrillation: Charges/Coding Visit Charges Inpatient E&M: 65407 Init Hosp L2
--- NOTE | 2021-07-09 18:02 | NURSING ---
PCU WHITE GASTROINTESTIONAL BLEEDING
[2021-07-09 20:42] LABS: Hematocrit 34.2 % (37-47); Hemoglobin 10.9 g/dL (12.0-15.0)
[2021-07-09] MEDS: Metoprolol Tartrate 100 MG Tablet PO (21:38)
[2021-07-09] MEDS: dilTIAZem CD 120 MG Capsule PO (21:38)
[2021-07-09] MEDS: Pantoprazole Sodium 40 MG Tablet PO (21:38)
[2021-07-09] MEDS: 0.9% Normal Saline 1,000 ML 100 ML IV (21:39)
[2021-07-10] VITALS (9 sets, daily range): BP systolic 123–139; BP diastolic 66–75; PULSE 72–87; RESP 14–16; TEMP 36.5–36.8; O2SAT 94–97
[2021-07-10 00:47] LABS: Hematocrit 31.2 % (37-47); Hemoglobin 9.9 g/dL (12.0-15.0)
[2021-07-10] MEDS: 0.9% Normal Saline 1,000 ML 100 ML IV ×2 (05:39→15:25)
[2021-07-10 07:12] LABS: Absolute Lymphocyte Count 1.18 X10^3/uL (0.83-4.51); Absolute Neutrophil Count 5.7 X10^3/uL (2.0-7.7); Basophil# 0.06 X10^3/uL; Basophil% 0.7 % (0-1); Eosinophil# 0.27 X10^3/uL; Eosinophils% 3.3 % (0-5); Hematocrit 31.8 % (37-47); Lymphocyte # 1.18 X10^3/ul (0.83-4.51); Lymphocyte % 14.4 % (19-41); Mean Corp Hgb Conc 31.4 g/dL (32-36); Mean Corpuscular Hgb 29.9 pg (27.0-32.0); Mean Corpuscular Volume 94.9 fL (81-99); Mean Platelet Vol. 9.1 fl (6.2-12.0); Monocyte# 0.91 X10^3/uL; Monocyte% 11.1 % (0-10); NRBC Flagged by Analyzer 0 % (0-5); Neutrophil # 5.72 X10^3/uL (2.7-7.7); Platelet Count 285 K/mm3 (150-450); RBC Distribution Width CV 13.5 % (11.6-14.6); RBC Distribution Width SD 47.2 fl (35.1-43.9); Red Blood Count 3.35 M/mm3 (4.2-5.4); White Blood Count 8.2 K/mm3 (4.4-11.0)
[2021-07-10 07:50] LABS: ALB/GLOB Ratio 0.8 RATIO (0.9-2.4); AST(SGOT) 18 U/L (15-37); Alanine Aminotransfer ALT/SGPT 12 U/L (13-56); Albumin, Serum 2.7 g/dL (3.2-5.0); Alkaline Phosphatase 87 U/L (45-117); Anion Gap 6 (5-15); BUN 14 mg/dL (7-18); BUN/Creat Ratio 19.4 RATIO (10-20); Calcium,Total 8.6 mg/dL (8.5-10.1); Chloride 107 mmol/L (98-107); Creatinine, Serum 0.72 mg/dL (0.55-1.02); EST Glomerular Filtration Rate 83 mL/min (>60); Est Glom Filt Rate - Afr Amer 100 mL/min (>60); Estimated Creatinine Clearance 66.87 ml/min; Globulin 3.5 g/dL (2.2-4.2); Glucose 86 mg/dL (74-106); Potassium 3.5 mmol/L (3.5-5.1); Protein, Total 6.2 g/dL (6.4-8.2); Sodium Level 139 mmol/L (136-145)
[2021-07-10] MEDS: Metoprolol Tartrate 100 MG Tablet PO ×2 (09:30→22:15)
[2021-07-10] MEDS: Spironolactone 25 MG Tablet PO (09:30)
[2021-07-10] MEDS: dilTIAZem CD 120 MG Capsule PO ×2 (09:45→22:14)
[2021-07-10] MEDS: Pantoprazole Sodium 40 MG Tablet PO ×2 (09:45→22:13)
[2021-07-10] MEDS: Losartan Potassium 25 MG Tablet PO (09:45)
--- NOTE | 2021-07-10 11:13 | CASEMGMT ---
Assessment- SW completed assessment with patient. She was sitting up in her chair. SW also confirmed address and phone number. Living situation- Patient lives with her in a 1 story home with 3 entry steps. PCP: Dr Staples Specialists: Dr Luciano-Cardiology at [facility] Pharmacy: [facility]. She has prescription coverage. DME: shower chair, cane, and walker ADL's/IADL's: Patient is independent in all ADL's and IADL's Past SNF/rehab: None Past HH: Yes. She does not remember the agency LW: Yes. She is aware it is not on file. POA: Yes. She is aware it is not on file. Her Mark is her HCPOA. Plan: Patient does not anticipate she will need anything at discharge. She said she feels fine. RN CAROLYN and SUNDEEP available should she have d/c needs. July Ruvalcaba OVERHEAD DOOR TECHNICIAN JO ANN
--- NOTE | 2021-07-10 16:54 | PCM.PN.HOSP ---
Subjective Subjective Patient admitted with lower GI bleed. Initially black stool and then turned to bright red. Patient on Xarelto. Denies prior episode of GI bleed. Patient had colonoscopy about 10 years ago and was normal. Objective Data Objective Data Vital Signs: Vital Signs Temp Pulse Resp BP Pulse Ox 98.1 F 81 16 128/74 H 94 07/10/21 15:15 07/10/21 15:15 07/10/21 15:15 07/10/21 15:15 07/10/21 15:15 Oxygen Delivery Method Room Air Weight: 211 lb 10.3 oz Body Mass Index (BMI) 42.2 Intake & Output: Intake and Output for Last 24 Hours 07/08/21 07/09/21 07/10/21 23:59 23:59 23:59 Intake Total 2476.67 / 2476.67 Balance 2476.67 / 2476.67 Lab / Micro Data Result Diagrams: 07/10/21 06:15 07/10/21 06:15 Labs: Laboratory Results - last 24 hr 07/09/21 19:42: Hgb 10.9 L, Hct 34.2 L 07/10/21 00:35: Hgb 9.9 L, Hct 31.2 L 07/10/21 06:15: WBC 8.2, RBC 3.35 L, Hgb 10.0 L, Hct 31.8 L, MCV 94.9, MCH 29.9, MCHC 31.4 L, RDW Std Deviation 47.2 H, RDW Coeff of Madeleine 13.5, Plt Count 285, MPV 9.1, Immature Gran % (Auto) 0.500, Neut % (Auto) 70.0, Lymph % (Auto) 14.4 L, [place] % (Auto) 11.1 H, Eos % (Auto) 3.3, Baso % (Auto) 0.7, Absolute Neuts (auto) 5.7, Absolute Lymphs (auto) 1.18, Nucleated RBC % 0 07/10/21 06:15: Sodium 139, Potassium 3.5, Chloride 107, Carbon Dioxide 26.0, Anion Gap 6, BUN 14, Creatinine 0.72, Estim Creat Clear Calc 66.87, Est GFR (MDRD) Af Amer 100, Est GFR (MDRD) Non-Af 83, BUN/Creatinine Ratio 19.4, Glucose 86, Calcium 8.6, Total Bilirubin 0.60, AST 18, ALT 12 L, Alkaline Phosphatase 87, Total Protein 6.2 L, Albumin 2.7 L, Globulin 3.5, Albumin/Globulin Ratio 0.8 L Radiography Diagnostic Testing: Radiology Impression Abdomen/Pelvis CT 07/09/21 14:29 IMPRESSION: 1. No acute findings. 2. Hepatic hypodensity too small to characterize. 3. Old granulomatous disease. Electronically Signed: Jing Sousa MD at 17:24 EDT Tel , Service support , Physical Exam Narrative General: Alert, Oriented x3, Cooperative HEENT: Atraumatic, PERRLA, EOMI, Normocephalic Oral: No Gingival or Mucosal Lesions/ Ulcerations Neck: Supple, No JVD, Negative Carotid Bruits Lungs: Air entry diminished in bilateral lung bases. No crepitation/rhonchi Cardiovascular: Sinus rhythm with PVCs normal S1, Normal S2, aortic click or prior valve replacement Abdomen: Bowel Sounds Present, Soft, Non Tender, Non-Distended : No renal angle tenderness. No suprapubic tenderness. Extremities: No edema, Capillary Refill Less than 3 Seconds Skin: No rashes, No breakdown Musculoskeletal: No Tenderness to Palpation of Joints or Extremities Neurological: Cranial nerves II-XII grossly intact, DTR 2+/4 and Symmetrical, Neuro grossly intact Psych/Mental Status: Normal Affect, Appropriate. Assessment & Plan Assessment/Plan (1) GI bleed: QUALIFIERS: GI bleed type/associated pathology: unspecified gastrointestinal hemorrhage type Qualified Code(s): K92.2 - Gastrointestinal hemorrhage, unspecified PLAN: 1. Acute GI Bleed with acute Blood Loss Anemia: Patient here in PCU. Xarelto on hold. Patient also has history of bioprosthetic AVR. Seen by GI. Patient did not had any bloody bowel movement today. Exact etiology unclear for possible diverticular bleed or possibly to Xarelto. Hemoglobin is stable at 10 g%. Discussed with the GI. If she again rebleeds, plan for flexible sigmoidoscopy 2. Paroxysmal A. fib: On diltiazem and metoprolol. Xarelto on hold. 3. CHF, patient not in exacerbation. Continue metoprolol losartan, spironolactone and Lasix home regimen. 4. Hypertension: Blood pressure is good. As mentioned above 5. Incidental 6 mm low-attenuation lesion right liver lobe: The nodule is too small to characterize. Charges/Coding Visit Charges Inpatient E&M: 79345 Subs Hosp L2
--- NOTE | 2021-07-10 22:38 | EX.PCM.PN.GI ---
Subjective Subjective Patient was admitted on due to a lower GI bleed. Objective Data Objective Data Vital Signs: Vital Signs Temp Pulse Resp BP Pulse Ox 98.3 F 84 16 139/75 H 97 07/10/21 22:06 07/10/21 22:15 07/10/21 22:06 07/10/21 22:15 07/10/21 22:06 Oxygen Delivery Method Room Air Weight: 211 lb 10.3 oz Body Mass Index (BMI) 42.2 Intake & Output: Intake and Output for Last 24 Hours 07/08/21 07/09/21 07/10/21 23:59 23:59 23:59 Intake Total 2476.67 / 2476.67 Balance 2476.67 / 2476.67 Lab / Micro Data Result Diagrams: 07/10/21 06:15 07/10/21 06:15 Labs: Laboratory Results - last 24 hr 07/10/21 00:35: Hgb 9.9 L, Hct 31.2 L 07/10/21 06:15: WBC 8.2, RBC 3.35 L, Hgb 10.0 L, Hct 31.8 L, MCV 94.9, MCH 29.9, MCHC 31.4 L, RDW Std Deviation 47.2 H, RDW Coeff of Madeleine 13.5, Plt Count 285, MPV 9.1, Immature Gran % (Auto) 0.500, Neut % (Auto) 70.0, Lymph % (Auto) 14.4 L, [place] % (Auto) 11.1 H, Eos % (Auto) 3.3, Baso % (Auto) 0.7, Absolute Neuts (auto) 5.7, Absolute Lymphs (auto) 1.18, Nucleated RBC % 0 07/10/21 06:15: Sodium 139, Potassium 3.5, Chloride 107, Carbon Dioxide 26.0, Anion Gap 6, BUN 14, Creatinine 0.72, Estim Creat Clear Calc 66.87, Est GFR (MDRD) Af Amer 100, Est GFR (MDRD) Non-Af 83, BUN/Creatinine Ratio 19.4, Glucose 86, Calcium 8.6, Total Bilirubin 0.60, AST 18, ALT 12 L, Alkaline Phosphatase 87, Total Protein 6.2 L, Albumin 2.7 L, Globulin 3.5, Albumin/Globulin Ratio 0.8 L Physical Exam Const alert General Appearance: cooperative Orientation / Consciousness: oriented to person HEENT hearing grossly normal bilaterally Head and Scalp: normal to inspection Face and Sinus: face symmetric Nose: external nose normal Mouth: oral and palatal mucosa normal Eyes conjunctivae normal General Eye: normal appearance of both eyes Neck full ROM General: normal visual inspection Lymph Lymphatic: no lymphadenopathy noted Chest inspection of chest normal and palpation of chest normal Chest: symmetrical chest wall rise Resp normal respiratory effort Effort and Inspection: able to speak in complete sentences Cardio regular rate GI non-distended Percussion: normal to percussion Rectal Exam: deferred Neuro Speech: speech normal Gait (Neuro): normal gait Assessment & Plan Assessment/Plan (1) GI bleed: QUALIFIERS: GI bleed type/associated pathology: unspecified gastrointestinal hemorrhage type Qualified Code(s): K92.2 - Gastrointestinal hemorrhage, unspecified PLAN: GI bleed is likely secondary to diverticular bleed. There is a possibility that could be an upper GI bleed rapid transit. However she did not have any pain or tenesmus. And initially was black stool associated with constipation. That makes it more likely that it was a diverticular bleed or stercoral ulcer bleed. (2) Atrial fibrillation: PLAN: She is not a candidate for anticoagulation at this time. She will need to hold anticoagulation for least 2 weeks.
--- NOTE | 2021-07-10 23:54 | PCS.PANDOC ---
PANDEMIC DOCUMENTATION INITIATED: Date: 05/20/2021 Time: 190
[2021-07-11] VITALS (8 sets, daily range): BP systolic 101–129; BP diastolic 60–72; PULSE 67–88; RESP 16; TEMP 36.8–36.9; O2SAT 94–98
[2021-07-11] MEDS: Pantoprazole Sodium 40 MG Tablet PO (09:21)
[2021-07-11] MEDS: Metoprolol Tartrate 100 MG Tablet PO (09:21)
[2021-07-11] MEDS: Losartan Potassium 25 MG Tablet PO (09:21)
[2021-07-11] MEDS: dilTIAZem CD 120 MG Capsule PO (09:21)
--- NOTE | 2021-07-11 11:28 | DCINST_ITS ---
Discharge Instructions Diet Discharge Diet: Soft diet (Soft diet for 3 days) Activity Discharge Activity: Return to Normal Activity Weight Bearing Status: Weight bearing as tolerated Dressing / Incision Call your doctor if you observe: Fever of 101 or Higher, Coldness, Increased Pain, Numbness or Tingling, Change in Color, Inability to urinate, Inability to have a bowel movement, Using more than 1 pad per hour, Shortness of breath, Dizziness, Fainting spells, Swelling in the ankles, Chest pain, Prolonged hiccupping, Increased palpitations (irregular heartbeat), Calf discomfort and Uncontrolled pain Follow Up Care Test Results: Test results from this visit will be discussed in further detail at your follow-up appointment, if applicable. Discharge Plan Admission Admit Date/Time: 07/09/21 17:41 Primary Reason for Your Visit: Acute lower GI bleed Attending Provider: López Hernandez Primary Care Provider: Tucker Staples Consulting Providers: Bubba Polo Instructions Additional Instructions / Restrictions: Patient advised to talk to the her graduate internship Dr. Luciano about lower GI bleed most probably due to diverticulosis and holding up Xarelto for 2 weeks and then resume Xarelto or change it to Eliquis. Discharge Orders/Prescriptions Prescriptions: Continued metoprolol tartrate 100 mg tablet 100 mg PO DAILY RF: 0 spironolactone 25 mg tablet 25 mg PO DAILY RF: 0 pantoprazole 40 mg tablet,delayed release (DR/EC) 40 mg PO DAILY RF: 0 losartan 25 mg tablet 25 mg PO DAILY RF: 0 cranberry 400 mg Capsule 400 mg PO DAILY RF: 0 diltiazem HCl 120 mg capsule,extended release 24hr 120 mg PO BID RF: 0 furosemide 20 mg tablet 40 mg PO DAILY RF: 0 cholecalciferol (vitamin D3) 125 mcg (5,000 unit) capsule 125 mcg PO DAILY RF: 0 multivitamin Tablet 1 tab PO DAILY RF: 0 ascorbic acid (vitamin C) 500 mg Tablet 500 mg PO DAILY RF: 0 Xarelto 20 mg tablet 20 mg PO DINNER Qty: 0 RF: 0 Referrals / Follow Up: Tucker Staples MD [Primary Care Provider] - In 1 Week (For lower GI bleed) Bubba Polo DO [STAFF PHYSICIAN] - Within 2 Weeks (For lower GI bleed for diverticulosis) Disposition Disposition (needs filled in before D/C Order can be placed): Home, Self Care
--- NOTE | 2021-07-11 11:46 | CASEMGMT ---
Pt has been independent in the room and states no concerns with going home at discharge. Kallie SWAIN CM
--- NOTE | 2021-07-11 11:49 | PCM.DC.SUM ---
Providers Date of Admission: 07/09/21 Primary Care Physician: Dr. Tucker Staples MD Consultations 07/09/21 18:29 Consult: Gastroenterology Routine Consulting Provider: MelaniBubba Reason for Consult: GI bleed EMERGENT Consult: No MD Notified: Yes Date Notified: 07/09/21 Time Notified: 17:43 Method of Notification: called Reason For Visit: ACUTE GI BLEED ON ANTICOAGULATION,ACUTE BLOOD LOSS Diagnosis Discharge Diagnosis (1) GI bleed: Status: Acute Code(s): K92.2 - Gastrointestinal hemorrhage, unspecified Qualifiers: GI bleed type/associated pathology: unspecified gastrointestinal hemorrhage type Qualified Code(s): K92.2 - Gastrointestinal hemorrhage, unspecified (2) Atrial fibrillation: Status: Acute Code(s): I48.91 - Unspecified atrial fibrillation Medications at Discharge Home Medications ascorbic acid (vitamin C) 500 mg PO DAILY 07/09/21 cholecalciferol (vitamin D3) 125 mcg PO DAILY 07/09/21 cranberry 400 mg PO DAILY 07/09/21 diltiazem HCl 120 mg PO BID 07/09/21 furosemide 40 mg PO DAILY 07/09/21 losartan 25 mg PO DAILY 07/09/21 metoprolol tartrate 100 mg PO DAILY 07/09/21 multivitamin 1 tab PO DAILY 07/09/21 pantoprazole 40 mg PO DAILY 07/09/21 spironolactone 25 mg PO DAILY 07/09/21 Xarelto 20 mg PO DINNER #0 tab 07/11/21 Hospital Course Summary of Care Provided Hospital Course: This 81-year-old female was admitted with bloody bowel movement for 1 day prior to admission. 3-4 bowel movements per day. Did not any abdominal pain. 1. Acute GI Bleed with acute Blood Loss Anemia: Patient was admitted in PCU. Xarelto on hold. Patient also has history of bioprosthetic AVR. Seen by GI. Patient did not had any bloody bowel movement during the hospital course. Exact etiology unclear for possible diverticular bleed or possibly to Xarelto. Hemoglobin is stable at 10 g%. Discussed with the GI and most likely diverticular bleed. Advised to hold Xarelto for 2 weeks and follow-up junior programmer analyst before resumption. Advised soft diet for 3 days 2. Paroxysmal A. fib: On diltiazem and metoprolol. Xarelto on hold. 3. CHF, patient not in exacerbation. Continue metoprolol losartan, spironolactone and Lasix home regimen. 4. Hypertension: Blood pressure is good. As mentioned above 5. Incidental 6 mm low-attenuation lesion right liver lobe: The nodule is too small to characterize. Discharge medication reconciliation done. Discharge follow-up instructions completed. Discharge process discussed with the patient and all questions were answered to patient's satisfaction. Total time spent, exact 35 minutes on discharge meds reconciliation, examination, coordination of care with nurses and ancillary staff, review of imaging and blood test and discussion with the patient on follow-up instructions Physical Exam Narrative Seen and examined. Patient did not had any GI bleed while in the hospital. H&H is stable. General: Alert, Oriented x3, Cooperative HEENT: Atraumatic, PERRLA, EOMI, Normocephalic Oral: No Gingival or Mucosal Lesions/ Ulcerations Neck: Supple, No JVD, Negative Carotid Bruits Lungs: Air entry diminished in bilateral lung bases. No crepitation/rhonchi Cardiovascular: Sinus rhythm with PVCs normal S1, Normal S2, aortic click or prior valve replacement Abdomen: Bowel Sounds Present, Soft, Non Tender, Non-Distended : No renal angle tenderness. No suprapubic tenderness. Extremities: No edema, Capillary Refill Less than 3 Seconds Skin: No rashes, No breakdown Musculoskeletal: No Tenderness to Palpation of Joints or Extremities Neurological: Cranial nerves II-XII grossly intact, DTR 2+/4 and Symmetrical, Neuro grossly intact Psych/Mental Status: Normal Affect, Appropriate. Weight / BMI Weight Weight: 212 lb 8.41 oz Body Mass Index (BMI) 42.2 ABG / Lab / Microbiology Data Result Diagrams: 07/10/21 06:15 07/10/21 06:15 D/C Instructions Discharge Diet: Soft diet (Soft diet for 3 days) Weight Bearing Status: Weight bearing as tolerated Call your doctor if you observe: Fever of 101 or Higher, Coldness, Increased Pain, Numbness or Tingling, Change in Color, Inability to urinate, Inability to have a bowel movement, Using more than 1 pad per hour, Shortness of breath, Dizziness, Fainting spells, Swelling in the ankles, Chest pain, Prolonged hiccupping, Increased palpitations (irregular heartbeat), Calf discomfort and Uncontrolled pain Meaningful Use Info Meaningful Use Diagnoses (Choose all that apply): None applicable Discharge Plan Admission Admit Date/Time: 07/09/21 17:41 Primary Reason for Your Visit: Acute lower GI bleed Attending Provider: López Hernandez Primary Care Provider: Tucker Staples Consulting Providers: Bubba Polo Instructions Additional Instructions / Restrictions: Patient advised to talk to the her junior programmer analyst Dr. Luciano about lower GI bleed most probably due to diverticulosis and holding up Xarelto for 2 weeks and then resume Xarelto or change it to Eliquis. Discharge Orders/Prescriptions Prescriptions: Continued metoprolol tartrate 100 mg tablet 100 mg PO DAILY RF: 0 spironolactone 25 mg tablet 25 mg PO DAILY RF: 0 pantoprazole 40 mg tablet,delayed release (DR/EC) 40 mg PO DAILY RF: 0 losartan 25 mg tablet 25 mg PO DAILY RF: 0 cranberry 400 mg Capsule 400 mg PO DAILY RF: 0 diltiazem HCl 120 mg capsule,extended release 24hr 120 mg PO BID RF: 0 furosemide 20 mg tablet 40 mg PO DAILY RF: 0 cholecalciferol (vitamin D3) 125 mcg (5,000 unit) capsule 125 mcg PO DAILY RF: 0 multivitamin Tablet 1 tab PO DAILY RF: 0 ascorbic acid (vitamin C) 500 mg Tablet 500 mg PO DAILY RF: 0 Xarelto 20 mg tablet 20 mg PO DINNER Qty: 0 RF: 0 Referrals / Follow Up: Tucker Staples MD [Primary Care Provider] - In 1 Week (For lower GI bleed) Bubba Polo DO [STAFF PHYSICIAN] - Within 2 Weeks (For lower GI bleed for diverticulosis) Disposition Disposition (needs filled in before D/C Order can be placed): Home, Self Care Charges/Coding Visit Charges Inpatient E&M: 44495 Disch Hosp
== END 2021-07-11 12:45 | disposition home or self-care (01) | DRG 378 ==
LOC: ED 17:57 → PCU 18:09
PROVIDERS: Admitting Provider Family Medicine; Emergency Provider Emergency Medicine; PCP Family Medicine; Visit Provider Internal Medicine
DX: K57.91 Diverticulosis of intestine, part unspecified, without perforation or abscess with bleeding (principal); D62 Acute posthemorrhagic anemia; Z68.41 Body mass index [BMI] 40.0-44.9, adult; I48.0 Paroxysmal atrial fibrillation; I11.0 Hypertensive heart disease with heart failure; I50.9 Heart failure, unspecified; G47.33 Obstructive sleep apnea (adult) (pediatric); E66.01 Morbid (severe) obesity due to excess calories; I27.20 Pulmonary hypertension, unspecified; I35.9 Nonrheumatic aortic valve disorder, unspecified; K21.9 Gastro-esophageal reflux disease without esophagitis; E78.5 Hyperlipidemia, unspecified; Z23 Encounter for immunization; Z79.01 Long term (current) use of anticoagulants; Z95.3 Presence of xenogenic heart valve; Z82.0 Family history of epilepsy and other diseases of the nervous system; Z87.440 Personal history of urinary (tract) infections; Z90.49 Acquired absence of other specified parts of digestive tract; Z96.651 Presence of right artificial knee joint; Z66 Do not resuscitate; R19.7 Diarrhea, unspecified
CPT/HCPCS: 36415; 74177; 80053; 81001; 85014; 85018; 85025; 93005; 99251; 99285; G0008; J7030; Q9967; 90686; A4216; G0463; J2405

== ENCOUNTER 2021-07-18 02:57 | Emergency (ER) | payer MEDICARE, OTHER, SELFPAY ==
[2021-07-18] VITALS (12 sets, daily range): BP systolic 107–133; BP diastolic 59–94; PULSE 71–86; RESP 16–22; TEMP 36.2–36.4; O2SAT 92–99; BMI 36.8
--- NOTE | 2021-07-18 02:59 | CT_ITS ---
We are attempting to reach an attending provider to discuss findings. An addendum with communication details will be sent when the communication is complete. HISTORY: Neuro deficit, acute, stroke suspected TECHNIQUE: Routine carotid CT angiogram protocol was performed with IV contrast. In addition, images were obtained of the [place]. Nascet criteria using the distal ICAs for comparison were used for evaluation of stenoses. 2-D and 3-D reconstructions were reviewed. A radiation dose optimization technique was used for this scan. IV Contrast dosage and agent: 100 mL [id number] COMPARISON: Concurrent unenhanced head CT FINDINGS: --NECK: AORTIC ARCH AND BRANCHES: Calcified plaque with no aneurysm, dissection, occlusion or significant stenosis. RIGHT CCA: No occlusion, significant stenosis or dissection. RIGHT ICA: No occlusion, significant stenosis or dissection. LEFT CCA: No occlusion, significant stenosis or dissection. LEFT ICA: No occlusion, significant stenosis or dissection. RIGHT VERTEBRAL ARTERY: No occlusion, significant stenosis or dissection. LEFT VERTEBRAL ARTERY: No occlusion, significant stenosis or dissection. NECK SOFT TISSUES: Small, benign right tonsillar calcifications (tonsiliths). LUNG APICES: Mild scattered air-trapping. BONES: Multilevel discogenic degenerative changes along cervical spine with no fracture or high-grade spinal canal stenosis. Status post sternotomy. --HEAD: --Anterior circulation: ICAs: No significant stenosis at the intracranial/visualized segments. ACAs: No significant stenosis at the visualized segments. ACOM: Present. MCAs: Occluded right middle cerebral artery. Left middle cerebral artery is patent with no significant stenosis. --Posterior circulation: PCOMs: Patent on the right. Nonvisualized on the left. long distance billing operator: No significant stenosis at the visualized segments. BASILAR ARTERY: No significant stenosis. VERTEBRAL ARTERIES: No significant stenosis at the intradural/visualized segments. Dominant left vertebral artery. No evidence of intracranial aneurysm or vascular malformation. CT/STROKE CTA Head AND Neck W/Con IMPRESSION: Occluded right middle cerebral artery. Individualized dose optimization techniques were used for this CT. at 0334 Reported and signed by: Tucker Swift MD Electronically Signed: Tucker Swift MD at 3:33 EDT Tel , Service support ,
--- NOTE | 2021-07-18 02:59 | CT_ITS ---
HISTORY: Neuro deficit, acute, stroke suspected EXAMINATION: CT Head Stroke Protocol W/O Contrast Injection TECHNIQUE: Multiple axial images were obtained of the brain without intravenous contrast. A radiation dose optimization technique was used for this scan. IV Contrast dosage and agent: None. COMPARISON: None FINDINGS: BRAIN PARENCHYMA: Increased attenuation along proximal right middle cerebral artery compatible with dense MCA sign of acute thrombus. No intra- or extra-axial hemorrhage. No intracranial mass or mass effect. Bilateral deep and subcortical cerebral white matter lucencies. Chronic involutional changes are noted. CSF SPACES: Prominent cerebral sulci secondary to involutional changes. No hydrocephalus. Basal cisterns are patent. Intracranial atherosclerotic calcifications. CALVARIUM, SKULL BASE, PARANASAL SINUSES AND MASTOID AIR CELLS: Intact calvarium. Left maxillary sinus mucosal thickening. Mastoid air cells are well pneumatized. ORBITS: Postop cataract surgery bilaterally. CT/STROKE Brain/Head without Cont IMPRESSION: 1. 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 No intracranial hemorrhage or edema. 2. Chronic small vessel ischemic changes. Individualized dose optimization techniques were used for this CT. at 0316 Reported and signed by: Tucker Swift MD N.B. : The above Results were Read Back by Tucker Swift MD to Dr. Jennifer MD, and understanding confirmed on 07/18/2021 03:14:41 (ET). Electronically Signed: Tucker Swift MD at 3:15 EDT Tel , Service support ,
--- NOTE | 2021-07-18 02:59 | EKG12_ITS ---
Test Reason : STROKE Blood Pressure : / mmHG Vent. Rate : 088 BPM Atrial Rate : 094 BPM P-R Int : 000 ms QRS Dur : 122 ms QT Int : 412 ms P-R-T Axes : 000 108 032 degrees QTc Int : 498 ms Atrial fibrillation Right bundle branch block Abnormal ECG Confirmed by EMILIA MENDOZA, LEONARDO ([id number]), clinical editor TAVO WINTER ([id number]) on 07/23/2021 6:43:07 AM Referred By: EN Confirmed By:LEONARDO NIETO MD
--- NOTE | 2021-07-18 03:19 | ED.RN ---
Dr. Rodriguez called stroke transfer line while patient was in CT. Dr. Rodriguez doing doc to doc
--- NOTE | 2021-07-18 03:28 | ED.RN ---
delay in CT due patient being a very difficult IV start
[2021-07-18 03:33] LABS: Absolute Lymphocyte Count 1.12 X10^3/uL (0.83-4.51); Absolute Neutrophil Count 8.7 X10^3/uL (2.0-7.7); Basophil# 0.05 X10^3/uL; Basophil% 0.5 % (0-1); Eosinophil# 0.14 X10^3/uL; Eosinophils% 1.3 % (0-5); Hematocrit 32.1 % (37-47); Hemoglobin 10.5 g/dL (12.0-15.0); Lymphocyte # 1.12 X10^3/ul (0.83-4.51); Lymphocyte % 10.4 % (19-41); Mean Corp Hgb Conc 32.7 g/dL (32-36); Mean Corpuscular Hgb 30.3 pg (27.0-32.0); Mean Corpuscular Volume 92.8 fL (81-99); Mean Platelet Vol. 8.8 fl (6.2-12.0); Monocyte# 0.75 X10^3/uL; Monocyte% 6.9 % (0-10); NRBC Flagged by Analyzer 0 % (0-5); Neutrophil # 8.71 X10^3/uL (2.7-7.7); Neutrophil % 80.6 % (47-70); Platelet Count 271 K/mm3 (150-450); RBC Distribution Width CV 13.8 % (11.6-14.6); RBC Distribution Width SD 46.5 fl (35.1-43.9); Red Blood Count 3.46 M/mm3 (4.2-5.4); White Blood Count 10.8 K/mm3 (4.4-11.0)
--- NOTE | 2021-07-18 03:33 | EDS_ITS ---
HPI History of Present Illness Chief Complaint: Neuro S/Sx Informant: patient, spouse/S.O. and EMS Narrative Narrative: 81-year-old female arriving by EMS with a chief complaint of stroke. Prehospital stroke team was called. tells me that she was recently in the hospital with a GI bleed. She has atrial fibrillation and her Xarelto was stopped. She has not yet resumed it. They went to bed at around 2330 hrs. awoke to find her phone bleed in the sheets when he called out to her noticed that her speech was off. He then called EMS and they transported her here. The patient notes slurred speech facial droop left arm and leg weakness. EMS notes a blood sugar of 130. states that she has not had any further bleeding. [facility] Medical History Adrenal adenoma Atrial fibrillation Chronic anticoagulation BELLE (dyspnea on exertion) GERD (gastroesophageal reflux disease) GI bleed Hyperlipidemia Hypertension RAVEN (obstructive sleep apnea) Osteoarthritis Pulmonary HTN Recurrent UTI Home Medications ascorbic acid (vitamin C) 500 mg PO DAILY 07/09/21 [History Last Taken 07/09/21] cholecalciferol (vitamin D3) 125 mcg PO DAILY 07/09/21 [History Last Taken 07/09/21] cranberry 400 mg PO DAILY 07/09/21 [History Last Taken 07/09/21] diltiazem HCl 120 mg PO BID 07/09/21 [History Last Taken 07/09/21] furosemide 40 mg PO DAILY 07/09/21 [History Last Taken 07/09/21] losartan 25 mg PO DAILY 07/09/21 [History Last Taken 07/09/21] metoprolol tartrate 100 mg PO DAILY 07/09/21 [History Last Taken 07/09/21] multivitamin 1 tab PO DAILY 07/09/21 [History Last Taken 07/09/21] pantoprazole 40 mg PO DAILY 07/09/21 [History Last Taken 07/09/21] spironolactone 25 mg PO DAILY 07/09/21 [History Last Taken 07/09/21] Allergy/AdvReac Type Severity Reaction Status Date / Time No Known Allergies Allergy Verified 07/18/21 03:01 Family History Father Irregular heart rhythm Mother Alzheimer's dementia Surgical History Aortic valve replaced H/O section H/O total knee replacement Status post right knee replacement Social History household members: spouse Smoking Status: Never smoker alcohol intake: never substance use type: does not use ROS ROS ED Constitutional Constitutional ED: Denies chills or weight loss Eyes Eyes: Denies change in vision or diplopia ENT ENT ED: Denies ear pain, rhinorrhea or sore throat Cardiovascular Cardiovascular: Denies chest pain, orthopnea, palpitations or racing heartbeat Respiratory/Chest Respiratory/Chest: Denies cough, dyspnea or orthopnea Gastrointestinal Gastrointestinal: Denies abdominal pain, diarrhea, nausea or vomiting Genitourinary Genitourinary ED: Denies dysuria, hematuria or urinary frequency Musculoskeletal Musculoskeletal: Denies arthralgias or myalgias Integumentary Denies abscess or rash Neurologic Neurologic: Reports weakness; Denies headache(s) Psychiatric Psychiatric: Denies anxiety, depression, suicidal ideation or suicidal thoughts Endocrine Endocrinology: Denies polydipsia, polyphagia or polyuria Allergic/Immunologic Allergic/Immunologic ED: Denies mouth swelling, tongue swelling or urticaria EXAM Physical Exam Const Vital Signs: 07/18/21 03:02 07/18/21 03:14 07/18/21 03:21 Temperature 97.2 F L 97.6 F L Temperature Source Oral Temporal Pulse Rate 76 72 Respiratory Rate 22 H 18 Blood Pressure 131/94 H 131/94 H Blood Pressure Mean 106 106 Blood Pressure Source Blood Pressure Position Blood Pressure Location Pulse Ox 94 93 Oxygen Delivery Method Room Air Room Air Room Air Oxygen Flow Rate (L/min) 07/18/21 03:30 07/18/21 03:37 07/18/21 03:47 Temperature Temperature Source Pulse Rate 71 75 Respiratory Rate 20 H 18 Blood Pressure 125/77 H 125/77 H 128/64 H Blood Pressure Mean 93 93 Blood Pressure Source Blood Pressure Position Blood Pressure Location Pulse Ox 94 92 Oxygen Delivery Method Room Air Room Air Oxygen Flow Rate (L/min) 07/18/21 03:51 07/18/21 03:56 07/18/21 04:11 Temperature Temperature Source Pulse Rate 76 80 78 Respiratory Rate 22 H 19 H 20 H Blood Pressure 128/64 H 117/76 117/76 Blood Pressure Mean 85 89 89 Blood Pressure Source Monitor Monitor Monitor Blood Pressure Position Supine Supine Supine Blood Pressure Location Right Arm Right Arm Right Arm Pulse Ox 96 97 99 Oxygen Delivery Method Nasal Cannula Nasal Cannula Nasal Cannula Oxygen Flow Rate (L/min) 2 2 2 07/18/21 04:12 07/18/21 04:26 07/18/21 04:41 Temperature 97.2 F L Temperature Source Pulse Rate 81 79 78 Respiratory Rate 16 17 18 Blood Pressure 117/76 133/61 H 128/59 H Blood Pressure Mean 89 85 82 Blood Pressure Source Monitor Monitor Blood Pressure Position Semi-Fowlers Semi-Fowlers Blood Pressure Location Right Arm Right Arm Pulse Ox 98 98 97 Oxygen Delivery Method Nasal Cannula Nasal Cannula Oxygen Flow Rate (L/min) 2 2 Positive well nourished and well developed General Appearance ED: well developed HEENT Reports normocephalic, head/scalp atraumatic and moist mucous membranes Eyes PERRL and EOMs intact bilaterally Neck no lymphadenopathy, supple and no JVD Resp normal respiratory effort and clear to auscultation bilaterally Cardio regular rate, regular rhythm and no murmurs Rhythm: abnormal rhythm irregularly irregular and other GI normal to inspection, nondistended, normoactive bowel sounds and non-tender Palpation: soft Back/Spine no CVA tenderness and normal ROM Extremity normal to inspection General Extremety ED: Negative for edema General Extremity: Negative for edema Neuro oriented x3 Neuro Narrative: See NIH score below Sensorium / Orientation: alert Psych mental status grossly normal Mood & Affect: Negative for depressed or tearful Skin no rashes or lesions noted and no wounds STROKE Vital Signs/Narrative: Vital Signs Temp Pulse Resp BP Pulse Ox 07/18/21 04:41 78 18 128/59 H 97 07/18/21 04:26 79 17 133/61 H 98 07/18/21 04:12 97.2 F L 81 16 117/76 98 07/18/21 04:11 78 20 H 117/76 99 07/18/21 03:56 80 19 H 117/76 97 07/18/21 03:51 76 22 H 128/64 H 96 07/18/21 03:47 128/64 H 07/18/21 03:37 75 18 125/77 H 92 07/18/21 03:30 71 20 H 125/77 H 94 07/18/21 03:21 97.6 F L 72 18 131/94 H 93 07/18/21 03:02 97.2 F L 76 22 H 131/94 H 94 NIHSS Initial: 1a Level of Consciousness: 0 1b LOC Questions (Score 2 if aphasic/stupor): 0 1c LOC Commands (Only score 1st attempt): 0 3 Visual: 2 4 Facial Palsy: 3 5 Motor Arm Right (UN = amputation/fusion): 0 5 Motor Arm Left: 4 6 Motor Leg Right: 0 6 Motor Leg Left: 4 7 Limb ataxia (Only + if out of proportion): 0 8 Sensory (Aphasia/stupor=0 or 1, coma=2): 2 9 Best Language: 0 10 Dysarthria (mute, coma=2, intubated=UN): 2 11 Extinction and Inattention (only scored if +): 1 Total Score: 18 MDM MDM MDM Narrative Medical decision making narrative: Prehospital stroke team was called. My initial review of the CT demonstrates an acute thrombus in the right middle cerebral artery. I discussed the case with the stroke neurologist on the phone and the recommendation is TPA. Risk benefits are discussed with the and he consents. Stroke neurologist evaluated the patient independently in the room via computer. TPA will be given and the patient will be transferred to [facility] for possible thrombectomy if TPA is not improving. We are working to arrange transport. My interpretation of the chest x-ray is cardiomegaly. No acute process. Lab Data Attestation: I reviewed the patient's lab results. Labs: Laboratory Results - last 24 hr 07/18/21 07/18/21 07/18/21 03:25 03:25 03:25 WBC 10.8 RBC 3.46 L Hgb 10.5 L Hct 32.1 L MCV 92.8 MCH 30.3 MCHC 32.7 RDW Std Deviation 46.5 H RDW Coeff of Madeleine 13.8 Plt Count 271 MPV 8.8 Immature Gran % (Auto) 0.300 Neut % (Auto) 80.6 H Lymph % (Auto) 10.4 L [place] % (Auto) 6.9 Eos % (Auto) 1.3 Baso % (Auto) 0.5 Absolute Neuts (auto) 8.7 H Absolute Lymphs (auto) 1.12 Nucleated RBC % 0 PT 13.2 INR 1.1 APTT 38.7 H Sodium 136 Potassium 3.6 Chloride 99 Carbon Dioxide 29.0 Anion Gap 8 BUN 19 H Creatinine 0.94 Estim Creat Clear Calc 40.53 Est GFR (MDRD) Af Amer 74 Est GFR (MDRD) Non-Af 61 BUN/Creatinine Ratio 20.2 H Glucose 121 H Calcium 8.7 Troponin I High Sens 13 Radiography Diagnostic Testing: Clinical Impression(s) from Imaging Studies Brain CT 07/18/21 02:59 IMPRESSION: 1. 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 No intracranial hemorrhage or edema. 2. Chronic small vessel ischemic changes. Individualized dose optimization techniques were used for this CT. at 0316 Reported and signed by: Tucker Swift MD N.B. : The above Results were Read Back by Tucker Swift MD to Dr. Jennifer MD, and understanding confirmed on 07/18/2021 03:14:41 (ET). Electronically Signed: Tucker Swift MD at 3:15 EDT Tel , Service support , ADDENDUM: 07/18/21 0323 IMPRESSION: 1. 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 No intracranial hemorrhage or edema. 2. Chronic small vessel ischemic changes. Individualized dose optimization techniques were used for this CT. at 0316 Reported and signed by: Tucker Swift MD N.B. : The above Results were Read Back by Tucker Swift MD to Dr. Jennifer MD, and understanding confirmed on 07/18/2021 03:14:41 (ET). Electronically Signed: Tucker Swift MD at 3:15 EDT Tel , Service support , Head/Neck CTA 07/18/21 02:59 IMPRESSION: Occluded right middle cerebral artery. Individualized dose optimization techniques were used for this CT. at 0334 Reported and signed by: Tucker Swift MD Electronically Signed: Tucker Swift MD at 3:33 EDT Tel , Service support , ADDENDUM: 07/18/21 0341 IMPRESSION: Occluded right middle cerebral artery. Individualized dose optimization techniques were used for this CT. at 0334 Reported and signed by: Tucker Swift MD N.B. : The above Results were Read Back by Tucker Swift MD to Azam Rodriguez MD, and understanding confirmed on 07/18/2021 03:34:38 (ET). Electronically Signed: Tucker Swift MD at 3:33 EDT Tel , Service support , Chest X-Ray 07/18/21 04:20 IMPRESSION: Cardiomegaly and atherosclerotic disease. at 0438 Reported and signed by: Tucker Swift MD Electronically Signed: Tucker Swift MD at 4:37 EDT Tel , Service support , EKG Initial EKG: Attestation: I personally reviewed and interpreted this EKG as follows: Comments: Atrial fibrillation with a ventricular rate of 88 bpm noted right bundle branch block which is known. Stroke Documentation Questions Stroke Team Activated: Yes Reviewed Inclusion/Exclusion criteria: Yes Was Patient considered for Endovascular Intervention?: Yes IV Alteplase (t-PA) Administered: Yes No contraindications for IV Alteplase (t-PA) administration.: Yes Alteplase (t-PA) risks, benefits, alternative discussed: Yes Not given: Patient refusal: No Critical Care Time Critical Care Time: Yes Critical care time (excluding procedures): 30-74 minutes (30 min), Including time spent:, Discussing w/Patient &/or Family/Ward Clerk, Discussing w/Consultants, Arranging Admission or Transfer and Performing Direct Patient Care at Bedside Discharge Plan Triage Chief Complaint: Neuro S/Sx ED Provider: Azam Rodriguez Dx/Rx/DC Orders Clinical Impression: Acute ischemic right MCA stroke, Atrial fibrillation Prescriptions: No Action metoprolol tartrate 100 mg tablet 100 mg PO DAILY RF: 0 spironolactone 25 mg tablet 25 mg PO DAILY RF: 0 pantoprazole 40 mg tablet,delayed release (DR/EC) 40 mg PO DAILY RF: 0 losartan 25 mg tablet 25 mg PO DAILY RF: 0 cranberry 400 mg Capsule 400 mg PO DAILY RF: 0 diltiazem HCl 120 mg capsule,extended release 24hr 120 mg PO BID RF: 0 furosemide 20 mg tablet 40 mg PO DAILY RF: 0 cholecalciferol (vitamin D3) 125 mcg (5,000 unit) capsule 125 mcg PO DAILY RF: 0 multivitamin Tablet 1 tab PO DAILY RF: 0 ascorbic acid (vitamin C) 500 mg Tablet 500 mg PO DAILY RF: 0 Primary Care Provider: Tucker Staples Referrals: Tucker Staples MD [Primary Care Provider] - Disposition Disposition: Acute Care Hospital Discharge Location: [facility]
[2021-07-18 03:44] LABS: International Normalized Ratio 1.1; Prothrombin Time (Protime)PT. 13.2 SECONDS (11.7-14.9)
[2021-07-18 03:45] LABS: Partial Thromboplast Time 38.7 Seconds (24.1-36.2)
[2021-07-18 03:51] LABS: Anion Gap 8 (5-15); BUN 19 mg/dL (7-18); BUN/Creat Ratio 20.2 RATIO (10-20); Calcium,Total 8.7 mg/dL (8.5-10.1); Chloride 99 mmol/L (98-107); Creatinine, Serum 0.94 mg/dL (0.55-1.02); EST Glomerular Filtration Rate 61 mL/min (>60); Est Glom Filt Rate - Afr Amer 74 mL/min (>60); Estimated Creatinine Clearance 40.53 ml/min; Glucose 121 mg/dL (74-106); Potassium 3.6 mmol/L (3.5-5.1); Sodium Level 136 mmol/L (136-145); Troponin-I HS 13 pg/mL (3.0-54.0)
--- NOTE | 2021-07-18 03:57 | ED.RN ---
CALLED [facility] FOR A TRANSFER THEY SAID THEY WAS NOT FLYING DUE TO THE WEATHER, THEY SAID THEY WOULD TRY ONE OTHER AIR CRAFT FOR US TO SEE IF THEY WOULD FLY. I CALLED PHYSICIANS FOR A GROUND TRANSPORT THE ETA WAS 45 MINUTES. I CALLED [facility] AND THEY SAID [facility] CONTACTED THEM, [facility] ACCEPTED THE TRANSFER.
--- NOTE | 2021-07-18 04:20 | RAD_ITS ---
HISTORY: Neuro deficit, acute, stroke suspected EXAMINATION/TECHNIQUE: XR Chest 1 View portable AP view COMPARISON: None FINDINGS: LINES/DEVICES: Sternotomy wires and cardiac monitoring leads. LUNGS: No overt pulmonary edema. No focal airspace consolidation. No sizable pleural effusion. No pneumothorax detected. MEDIASTINUM AND CARDIOVASCULAR STRUCTURES: Enlarged heart shadow. Status post CABG. Atherosclerotic calcifications along the aorta. BONES AND SOFT TISSUES: Skeletal degenerative changes. RAD/Chest 1 View IMPRESSION: Cardiomegaly and atherosclerotic disease. at 0438 Reported and signed by: Tucker Swift MD Electronically Signed: Tucker Swift MD at 4:37 EDT Tel , Service support ,
--- NOTE | 2021-07-18 04:29 | ED.RN ---
[facility] CALLED THEY WILL BE HERE IN 15 MINUTES
== END 2021-07-18 04:51 | disposition short-term general hospital (02) ==
PROVIDERS: Emergency Provider Emergency Medicine; PCP Family Medicine
DX: I63.9 Cerebral infarction, unspecified (principal); I48.91 Unspecified atrial fibrillation; I45.10 Unspecified right bundle-branch block; I66.01 Occlusion and stenosis of right middle cerebral artery; Z96.651 Presence of right artificial knee joint; Z79.01 Long term (current) use of anticoagulants; G47.33 Obstructive sleep apnea (adult) (pediatric); I10 Essential (primary) hypertension; E78.5 Hyperlipidemia, unspecified; K21.9 Gastro-esophageal reflux disease without esophagitis
CPT/HCPCS: 70450; 70496; 70498; 71045; 80048; 84484; 85025; 85610; 85730; 87426; 93005; 99285; J2997; Q9967; A4216

== ENCOUNTER 2021-07-24 18:29 | Inpatient (IN) | payer MEDICARE, OTHER, SELFPAY ==
[2021-07-24 18:36] VITALS: BMI 43.5
[2021-07-24 19:21] VITALS: BP 122/69; PULSE 100; RESP 18; TEMP 36.7; O2SAT 96
[2021-07-24 19:22] VITALS: BP 117/78; PULSE 102; RESP 16; TEMP 36.6; O2SAT 95
[2021-07-24] MEDS: Acetaminophen 325 MG Tablet 650 MG PO (21:53)
[2021-07-24 21:55] VITALS: PULSE 100
[2021-07-24] MEDS: Atorvastatin Calcium 80 MG Tablet PO (21:55)
[2021-07-24] MEDS: Metoprolol Tartrate 25 MG Tablet 75 MG PO (21:55)
[2021-07-24 22:00] VITALS: PULSE 102; RESP 16; O2SAT 98
--- NOTE | 2021-07-24 22:39 | NURSING ---
Pt and spouse made aware of Team scheduled for Mondays. When staff offered to shower pt before bed, pt refused, even though pt claims that she hasn't had a shower since last week.
[2021-07-24 23:00] VITALS: BMI 43.5
[2021-07-25 06:11] LABS: Absolute Lymphocyte Count 0.96 X10^3/uL (0.83-4.51); Absolute Neutrophil Count 5.3 X10^3/uL (2.0-7.7); Basophil# 0.06 X10^3/uL; Basophil% 0.8 % (0-1); Eosinophil# 0.48 X10^3/uL; Eosinophils% 6.1 % (0-5); Hematocrit 26.7 % (37-47); Hemoglobin 8.1 g/dL (12.0-15.0); Lymphocyte # 0.96 X10^3/ul (0.83-4.51); Lymphocyte % 12.2 % (19-41); Mean Corp Hgb Conc 30.3 g/dL (32-36); Mean Corpuscular Hgb 28.9 pg (27.0-32.0); Mean Corpuscular Volume 95.4 fL (81-99); Mean Platelet Vol. 8.6 fl (6.2-12.0); Monocyte% 12.7 % (0-10); NRBC Flagged by Analyzer 0 % (0-5); Neutrophil # 5.32 X10^3/uL (2.7-7.7); Neutrophil % 67.3 % (47-70); Platelet Count 344 K/mm3 (150-450); RBC Distribution Width CV 14.2 % (11.6-14.6); RBC Distribution Width SD 49.6 fl (35.1-43.9); White Blood Count 7.9 K/mm3 (4.4-11.0)
[2021-07-25 06:50] LABS: ALB/GLOB Ratio 0.6 RATIO (0.9-2.4); AST(SGOT) 27 U/L (15-37); Alanine Aminotransfer ALT/SGPT 20 U/L (13-56); Albumin, Serum 2.2 g/dL (3.2-5.0); Alkaline Phosphatase 79 U/L (45-117); Anion Gap 7 (5-15); BUN 11 mg/dL (7-18); BUN/Creat Ratio 15.8 RATIO (10-20); Calcium,Total 8.4 mg/dL (8.5-10.1); Chloride 107 mmol/L (98-107); EST Glomerular Filtration Rate 86 mL/min (>60); Est Glom Filt Rate - Afr Amer 104 mL/min (>60); Estimated Creatinine Clearance 68.12 ml/min; Globulin 3.7 g/dL (2.2-4.2); Glucose 94 mg/dL (74-106); Magnesium 1.9 mg/dL (1.6-2.6); Potassium 3.7 mmol/L (3.5-5.1); Protein, Total 5.9 g/dL (6.4-8.2); Sodium Level 139 mmol/L (136-145)
[2021-07-25 07:06] VITALS: BP 117/75; PULSE 104; RESP 18; TEMP 36.3; O2SAT 93
[2021-07-25 08:09] VITALS: BP 117/75; PULSE 104
[2021-07-25] MEDS: Aspirin 81 MG TAB.CHEW PO (08:09)
[2021-07-25] MEDS: Metoprolol Tartrate 25 MG Tablet 75 MG PO ×2 (08:09→21:15)
[2021-07-25] MEDS: Pantoprazole Sodium 40 MG Tablet PO (08:10)
[2021-07-25] MEDS: Nystatin Powder 15gm Bottle 1 APPLIC TOPICAL ×2 (08:11→21:21)
[2021-07-25] MEDS: Acetaminophen 325 MG Tablet 650 MG PO (08:14)
--- NOTE | 2021-07-25 08:16 | NURSING ---
Addendum entered by Adamaris Joyce 07/25/21 10:19: Received call form Angélica Bennett office. No PT/OT to [facility] for 1 week D/T Pseudoaneurysm. She forwarded message to Dr Mccollum (Neuro) in regards to starting Eliquis Original Note: Call placed to Dr Bennett office in regards to patient starting Eliquis and if ok to do PT/OT on [facility]
--- NOTE | 2021-07-25 08:49 | HP.PCM_ITS ---
HPI - General General Date of Admission: 07/24/21 HPI Narrative JAGDEEP WHYTE, is a 81 YO F with a PMH of hypertension, hyperlipidemia, atrial fibrillation, chronic anticoagulation, recent history of a GI bleed, GERD, RAVEN, pulmonary hypertension, morbid obesity, aortic valve replacement (approximately 2010 - bioprosthetic pig valve)) and osteoarthritis who presented to the ED at [facility] on 07/18/21 with a history of having gone to bed at 1130 on 07/17/2021 and when her woke up a few hours later she had slurred speech, facial droop and Left side weakness. 911 was called and the EMT's arrived at 02:33. they arrived in the ED at 02:54. She had just been discharged from [facility] on 07/11/21 after being admitted with a lower GI bleed. During that admission Xarelto was discontinued due to bleeding. She was seen in consultation by Dr. Polo who felt the most likely etiology of the GI bleed was diverticular. He recommended holding anticoagulation for at least 2 weeks. The hemoglobin at discharge from the hospital was 10. Hemoglobin on 07/18/2021 was 10.5. The NIHSS score at presentation to the emergency room was 18. Radiology was consistent with a thrombus in the right middle cerebral artery. Consultation was obtained via teleneurology and TPA was recommended. TPA was given in the emergency room and the patient was transported to [facility] for possible thrombectomy. CTP at [facility] showed a large area of mismatched perfusion abnormality consistent with ischemic penumbra involving the majority of the right MCA territory with only a relatively small area of matched perfusion deficit consistent with core infarct involving the right basal ganglia. She was taken to the OR for thrombectomy and TICI 2C revascularization was achieved. MRI showed the infarct in the basal ganglia along with 2 other foci in the right cerebellum and right occipital lobes. She had a transthoracic echocardiogram that showed an ejection fraction of 65% with abnormal septal wall motion, and enlarged right ventricle, right atrium and left atrium. Bubble study was negative for PFO. LDL was 108 and the hemoglobin A1c was 5.2. Patient's hospital course was complicated by a pseudoaneurysm from her thrombectomy site in the right groin and hemorrhage into the surrounding tissues. Hemoglobin down trended to the low sevens and she was transfused with 1 unit of packed red blood cells. On the day of discharge her hemoglobin was 8.8. She will follow up with vascular surgery as an outpatient. A CTA of the right groin showed no active extravasation at the pseudoaneurysm site. She was to resume Eliquis on 07/25 which is 2 weeks after she was discharged from [facility] after a presumed diverticular bleed. She was transferred to [facility] acute rehab on 07/24/21 for 3 hours of the rapy daily to restore function at or near her level prior to the CVA. Pt denies having ever been tested for RAVEN and I do not know where this diagnosis came from. I also do not know who diagnosed her with pulmonary HTN. The TTE at [facility] does however show RVE and BL and biatrial enlargement. She has been told she snores but, she denies RLS, daytime sleepiness, she has never been told by her that she stops breathing at night. She tells me that she gets SOB with exertion and she attributes this to AF and CHF. She is a life long non- smoker and she denies a hx of asthma. [facility] Medical History (Updated 07/28/21 @ 08:[address] Melissa Patel, DO) Adrenal adenoma Atrial fibrillation Chronic anticoagulation Diverticular disease BELLE (dyspnea on exertion) GERD (gastroesophageal reflux disease) GI bleed Hyperlipidemia Hypertension Morbid obesity with BMI of 40.0-44.9, adult RAVEN (obstructive sleep apnea) Osteoarthritis Pulmonary HTN Home Medications ascorbic acid (vitamin C) 500 mg PO DAILY 07/09/21 [History Last Taken 07/09/21] cholecalciferol (vitamin D3) 125 mcg PO DAILY 07/09/21 [History Last Taken 07/09/21] cranberry 400 mg PO DAILY 07/09/21 [History Last Taken 07/09/21] multivitamin 1 tab PO DAILY 07/09/21 [History Last Taken 07/09/21] pantoprazole 40 mg PO DAILY 07/09/21 [History Last Taken 07/09/21] aspirin 81 mg PO DAILY 07/24/21 [History Last Taken Unknown] atorvastatin [Lipitor] 80 mg PO QHS 07/24/21 [History Last Taken Unknown] metoprolol tartrate 75 mg PO Q12H 07/24/21 [History Last Taken Unknown] Allergy/AdvReac Type Severity Reaction Status Date / Time No Known Allergies Allergy Verified 07/18/21 03:01 Family History Father Irregular heart rhythm Mother Alzheimer's dementia Surgical History (Updated 07/28/21 @ 08:[address] Melissa Patel DO) Aortic valve replaced H/O section H/O total knee replacement Social History household members: spouse Smoking Status: Never smoker alcohol intake: never substance use type: does not use ROS Constitutional Constitutional: Reports fatigue and weakness; Denies anorexia, change in weight, chills, fever(s) or night sweats Eyes Eyes: Denies blurry vision, change in vision, discharge from eye(s), double vision, eye pain or loss of vision ENT HEENT: Denies abnormal hearing, dysphagia, headache(s), hearing loss, loss tast e/smell, nasal congestion or sore throat Cardiovascular Cardiovascular: Reports palpitations; Denies chest pain, dyspnea on exertion, edema, lightheadedness, orthopnea, paroxysmal nocturnal dyspnea or syncope Respiratory/Chest Respiratory/Chest: Reports shortness of breath with exertion; Denies cough, dys pnea, shortness of breath at rest or wheezing Gastrointestinal Gastrointestinal: Denies abdominal pain, constipation, diarrhea, dyspepsia, hematemesis, hematochezia, melena, nausea or vomiting Genitourinary Genitourinary: Reports nocturia and urinary incontinence; Denies dysuria, hematuria, urinary frequency, urinary hesitancy or urinary urgency Musculoskeletal Musculoskeletal: Reports other Details: arthralgia at times ; Denies back pain, joint pain, joint swelling or neck pain Integumentary Integumentary: Denies jaundice, pruritus or rash Neurologic Neurologic: Reports focal weakness and weakness; Denies abnormal speech, confusion, disequilibrium, dizziness, headache(s), paresthesias, seizures or tremor(s) Psychiatric Psychiatric: Denies anxiety, depression, homicidal ideation or suicidal ideation Endocrine Endocrinology: Denies change in body appearance, polydipsia or polyuria Hematologic/Lymphatic Hematologic/Lymphatic: Reports easy bleeding and easy bruising; Denies lymphadenopathy Allergic/Immunologic Allergic/Immunologic: Denies rhinitis, eczemia or asthma Vital Signs Vital Signs Vital Signs: 07/24/21 19:21 07/24/21 19:22 07/24/21 21:55 Temperature 98.1 F 97.8 F Temperature Source Oral Oral Pulse Rate 100 102 H 100 Respiratory Rate 18 16 Respiratory Effort Respiratory Depth Respiratory Pattern Blood Pressure 122/69 H 117/78 Blood Pressure Mean 86 91 Blood Pressure Source Monitor Monitor Blood Pressure Position Semi-Fowlers Semi-Fowlers Blood Pressure Location Right Arm Right Arm Pulse Ox 96 95 Oxygen Delivery Method Room Air Room Air 07/24/21 22:00 07/25/21 07:06 07/25/21 08:09 Temperature 97.4 F L Temperature Source Oral Pulse Rate 102 H 104 H 104 H Respiratory Rate 16 18 Respiratory Effort Normal Non-Labored Respiratory Depth Normal Respiratory Pattern Normal Blood Pressure 117/75 117/75 Blood Pressure Mean 89 Blood Pressure Source Monitor Blood Pressure Position Semi-Fowlers Blood Pressure Location Right Forearm Pulse Ox 98 93 Oxygen Delivery Method Room Air Room Air Weight Weight: 215 lb 9.793 oz Body Mass Index (BMI) 43.5 Indicators for Scoring Admitted with or Primary Diagnosis of CVA/Stroke: Yes Hx of CVA/Stroke: Yes Modified Chago Score MRS Score at time of Evaluation: 4-Moderate/severe disability NIHSS NIHSS 1a. Level of Consciousness: Alert; keenly responsive 1b. LOC Questions: Answers BOTH questions correctly. 1c. LOC Commands: Performs both tasks correctly. 2. Best Gaze: Normal 3. Visual: No visual loss 4. Facial Palsy: Normal symmetrical movements 5a. Left Arm: Drift; arm drifts downward but doesn?t hit the bed 5b. Right Arm: No drift; arm holds 90 (or 45) degrees for full 10 seconds 6a. Left Leg: Some effort against gravity; 6b. Right Leg: No drift; leg holds 30-degree position for full 5 seconds 7. Limb Ataxia: Absent 8. Sensory: Normal; no sensory loss 9. Best Language: No aphasia; normal 10. Dysarthria: Normal 11. Extinction and Inattention: No abnormality Total: 3 Stroke Questions Stroke Team Activated: No Physical Exam Const alert, oriented x3, no apparent distress and well nourished General Appearance: cooperative Eyes PERRL, EOMs intact bilaterally, conjunctivae normal, no scleral icterus and normal visual palafox by confrontation Resp Resp Narrative: lying flat in bed with no orthopnea. Cardio regular rate, regular rhythm, no murmurs, no gallops and no clicks GI normal to inspection, nondistended, normoactive bowel sounds, soft to palpation, non-tender and no masses GI Narrative: obese Extremity Extremity Narrative: The R groin has resolving ecchymosis. She has some pain with palpation in the upper anterior R thigh. At the puncture site there is a small hematoma. There is no significant pain with palpation over the puncture site in the R groin. There is pitting edema in the distal legs and she has a stricture at the ankle BL due to the socks being too tight. Will have nursing cut the elastic in the top of the sock. Negative Amaury's and negative Vishal's signs General Extremity: Negative for calf tenderness or cyanosis Skin Skin Narrative: resolving ecchymosis of the R groin and the R medial thigh General Skin Exam: no breakdown Rashes: no rashes Neuro Neuro Narrative: see the NIHSS scoring Psych mental status grossly normal, thought process normal, cooperative and affect normal Results Lab / Micro Data Result Diagrams: 07/28/21 07:14 07/25/21 05:59 Labs: Laboratory Results - last 24 hr 07/24/21 20:56: Phosphorus 3.0 07/25/21 05:59: WBC 7.9, RBC 2.80 L, Hgb 8.1 L, Hct 26.7 L, MCV 95.4, MCH 28.9, MCHC 30.3 L, RDW Std Deviation 49.6 H, RDW Coeff of Madeleine 14.2, Plt Count 344, MPV 8.6, Immature Gran % (Auto) 0.900, Neut % (Auto) 67.3, Lymph % (Auto) 12.2 L, Carter % (Auto) 12.7 H, Eos % (Auto) 6.1 H, Baso % (Auto) 0.8, Absolute Neuts (auto) 5.3, Absolute Lymphs (auto) 0.96, Nucleated RBC % 0 07/25/21 05:59: Sodium 139, Potassium 3.7, Chloride 107, Carbon Dioxide 25.0, Anion Gap 7, BUN 11, Creatinine 0.70, Estim Creat Clear Calc 68.12, Est GFR (MDRD) Af Amer 104, Est GFR (MDRD) Non-Af 86, BUN/Creatinine Ratio 15.8, Glucose 94, Calcium 8.4 L, Magnesium 1.9, Total Bilirubin 1.30 H, AST 27, ALT 20, Alkaline Phosphatase 79, Total Protein 5.9 L, Albumin 2.2 L, Globulin 3.7, Albumin/Globulin Ratio 0.6 L Assessment & Plan Assessment/Plan (1) Physical debility: (2) Acute ischemic right MCA stroke: (3) Pseudoaneurysm following procedure: (4) Atrial fibrillation: (5) Anemia due to acute blood loss: (6) Chronic anticoagulation: (7) GI bleed: (8) Hypertension: (9) Hyperlipidemia: (10) GERD (gastroesophageal reflux disease): (11) Morbid obesity with BMI of 40.0-44.9, adult: PLAN: PLAN PT for gait stability OT for ADL's ST for evaluation Analgesics as needed Bowel protocol Fall precautions Assess for Anxiety/Depression GI prophylaxis with pantoprazole DVT prophylaxis-will restart patient on chronic anticoagulation for recurrent atrial fibrillation. Will use Eliquis 5 mg p.o. twice daily Follow up with interventional radiologist, neurology, PCP following DC from [facility] Rehab Daily hemoglobin/hematocrit x7 days Daily groin checks -if the hematoma enlarges will obtain stat CTA of the pelvis and upper right thigh Charges/Coding Visit Charges Inpatient E&M: 50840 Init Hosp L3
--- NOTE | 2021-07-25 08:54 | PCM.RU.PYE ---
Admission Information Primary Diagnosis:: Debility secondary to a right MCA embolic CVA. S/P thrombectomy. Status Changes from Prescreening?: No changes Identified Actual Problem List:: Skin Intergrity, Mobility Impaired, Self Care Deficit, Alteration/ Air Exchange and Alteration-Leisure Activ. Potential Problem List:: DVT, Bleeding, Infection, UTI, Aspiration, Falls, Skin Integrity and Depression Risk of Complications DVT: LMWH and GREG Hose Bleeding: Monitor Lab Values, Nursing to Teach Precautions for anti-coagulation therapy., Wound, if applicable, to be assessed every shift. and Stroke patients assessed for lethargy or change in status. Infection: Clinical Staff to Monitor for S/S of infection: and S/S of infection include fever, redness, warmth, etc. Urinary Tract Infection: Monitor for frequency, burning, discomfort, or incontinence. and Nursing will obtain urine sample for urinalysis and C&S when ordered. Aspiration: Clinical staff will monitor for coughing, drooling, congestion., Speech will evaluate swallowing and dsyphasia. and Nursing will monitor patient swallowing during meals. Falls: Patient will be evaluated for Fall Precautions and Patient will be placed on Fall Precautions as indicated per protocol. Skin Breakdown: Nursing will assess skin daily using assessment tool. and Nursing will place on Skin Breakdown Precautions as indicated. Pain: Clinical staff will assess patient's pain level per protocol., Medications will be given, if needed, and the pain level reassessed. and Other methods: Massage, distraction, decrease stimulus, etc. used PRN. Plan of Care Patient requires physician specializing in physical medicine and rehab oversight to provide close medical supervision of rehab issues including: Pain Management, Sleep Problems, Bowel and Bladder, Medical and co-morbidity Management, DVT prophylaxis, Rehabilitation Leadership and Coordination of treatment team Patient needs Physical Therapy: For a minimum of 1 hour and At least 5 out of 7 days Patient needs Physical Therapy to improve:: Mobility, Strengthening, Transfers, Stretching, ROM, Endurance, Stairs, Gait and Balance Patient needs Occupational Therapy: For a minimum of 1 hour and At least 5 out of 7 days Patient needs Occupational Therapy to improve ADL's incl.: Eating, Grooming, Bathing, Dressing, Toileting, Toilet transfers, Community Reintegration, Higher functioning activities, Household tasks, Adaptive Equipment, Splinting and Other activities as determined Patient requires speech therapy: For a minimum of 1 hour and At least 5 out of 7 days Patient requires speech therapy for: - (evaluation of speech, cognition and swallowing difficulties. ) Patient requires 24/7 Rehabilitation Nursing for: Pain Issues, Identifying and preventing risk factors, Monitoring and reporting current medical conditions, Assisting with ambulation, transfer, and all ADL's, Teaching patients about disease process and medications, Family teaching, Providing safe environment, Bowel and Bladder Issues, Skin integrity and Medication Management Patient needs Loan Specialist/ Case Management for: Discharge Planning, Arranging Home Equipment or Services and Family Interventions Patient needs Dietary and Nutrition Services for: Adequate Nutrition, Nutritional Supplements and Nutritional Education Goals Patient will remain: free from falls and or injury at time of discharge. Patient will perform bed mobility at: MOD I level of assist. Patient will complete transfers from bed to chair at: MOD I level of assist. Patient will ambulate: - (500 feet with least restrictive device with mod I assistance) Patient will complete upper body dressing at: MOD I level of assist. Patient will complete lower body dressing at: MOD I level of assist. Patient will complete toileting at: MOD I level of assist. Patient will perform bathing at: Standby Assist. Patient will complete grooming at: MOD I level of assist. Patient will complete home management skills at: MOD I level of assist. Patient will achieve: - (1 curb step and 3 steps with 2 HR to gain entry to her house) Patient will have pain level of: of 3 or less Patient's skin will: remain intact Patient will receive: adequate nutrition. Discharge Planning Pt Prognosis for Sig. Practical Improv. w/in Reasonable Time: Good Estimated Length of stay (days): 14 Anticipated D/C Destination: Home with Outpt Therapy Was Preadmission Assessment Accurate?: Yes
--- NOTE | 2021-07-25 12:30 | NT.THERAPY_ITS ---
Medical Nutrition Therapy - History Nutrition Services has been consulted to:: Conduct nutrition counseling - Anthropometric Measurements Height:: 4 ft 11 in Weight:: 215 lb 9.793 oz Body Mass Index (BMI):: 43.5 - Relevant Labs Relevant Labs:: RBC 2.80 M/mm3 (4.2-5.4) L 07/25/21 05:59 Hgb 8.1 g/dL (12.0-15.0) L 07/25/21 05:59 Hct 26.7 % (37-47) L 07/25/21 05:59 MCHC 30.3 g/dL (32-36) L 07/25/21 05:59 RDW Std Deviation 49.6 fl (35.1-43.9) H 07/25/21 05:59 Lymph % (Auto) 12.2 % (19-41) L 07/25/21 05:59 [place] % (Auto) 12.7 % (0-10) H 07/25/21 05:59 Eos % (Auto) 6.1 % (0-5) H 07/25/21 05:59 Calcium 8.4 mg/dL (8.5-10.1) L 07/25/21 05:59 Total Bilirubin 1.30 mg/dL (0.20-1.00) H 07/25/21 05:59 Total Protein 5.9 g/dL (6.4-8.2) L 07/25/21 05:59 Albumin 2.2 g/dL (3.2-5.0) L 07/25/21 05:59 Albumin/Globulin Ratio 0.6 RATIO (0.9-2.4) L 07/25/21 05:59 - Assessment Food and Nutrient Intake: Xiomara reports good appetite-nursing reports 75-100% intake at last intake. 24 hr oral intake reported; RDN estimates at <1000 kcals with < 25 g protein for day. - Nutrition Diagnosis: Behavioral Problem Not Ready for Diet or Lifestyle Change Behavioral-Environmental Problem - Etiology: related to denial of need to change and unwilling or disinterested in learning/applying information Behavioral-Enviornmental Problem - Signs/Symptoms: as evidenced by emphatic refusal of expanding intake while stating tries to eat healthy and balanced. Refusal to take information on WhyWeight program and refusal to try yogurt or Ensure at bedside. - Protein Calorie Malnutrition Evidence of Malnutrition Exists: No - Nutrition Intervention Nutrition Prescription: 8012-8012 kcals, 70-85g pro, 2400 mL fluid/ day - Food / Nutrient Delivery Interventions Summary of nutrition intervention:: Nutrition counseling provided Nutrition support ordered as / adjusted to:: recommend increase 1 additional protein serving per meal for patient to recognize appropriate sources. Continue cardiac diet. Nutrition education provided?: Yes Nutrition Counseling: Discussion on importance of protein with daily protein recommendation and label read. Offered outpatient WhyWeight information/ declined. - MNT Monitoring Active Nutrition Patient: Yes Nutrition Status: Requires Follow Up 7-9 Days
[2021-07-25 12:32] VITALS: BMI 43.5
[2021-07-25 16:28] VITALS: BMI 43.5
[2021-07-25 19:59] VITALS: BP 120/69; PULSE 94; RESP 17; TEMP 36.6; O2SAT 98
[2021-07-25 21:15] VITALS: BP 120/69; PULSE 94
[2021-07-25] MEDS: Atorvastatin Calcium 80 MG Tablet PO (21:15)
[2021-07-25] MEDS: APIXABAN 5 MG TABLET PO (21:15)
[2021-07-26 03:53] VITALS: BMI 43.5
[2021-07-26] MEDS: Acetaminophen 325 MG Tablet 650 MG PO ×2 (05:51→21:28)
[2021-07-26 07:48] VITALS: BP 126/64; PULSE 95; RESP 16; TEMP 36.7; O2SAT 99
[2021-07-26] MEDS: Cholecalciferol (VIT D3) 25 MCG TABLET (1,000 UNITS) 125 MCG PO (08:24)
[2021-07-26] MEDS: APIXABAN 5 MG TABLET PO ×2 (08:24→20:10)
[2021-07-26 08:25] VITALS: BP 126/64; PULSE 95
[2021-07-26] MEDS: Metoprolol Tartrate 25 MG Tablet 75 MG PO ×2 (08:25→20:10)
[2021-07-26] MEDS: Pantoprazole Sodium 40 MG Tablet PO (08:25)
[2021-07-26] MEDS: Aspirin 81 MG TAB.CHEW PO (08:25)
[2021-07-26] MEDS: Nystatin Powder 15gm Bottle 1 APPLIC TOPICAL ×2 (08:27→20:10)
[2021-07-26 10:34] LABS: Hematocrit 28.9 % (37-47); Hemoglobin 9.1 g/dL (12.0-15.0)
--- NOTE | 2021-07-26 14:47 | CASEMGMT ---
SW met w/pt for initial assessment. Pt is aware of plan of care meeting on Thursday and that her length of stay will be discussed. Pt is hopeful to return home at discharge, and is open to home health. PHQ-9 completed, pt scored a 3. Pt's symptoms that showed on the PHQ-9 are consistent with her medical condition and the stress of both she and having medical difficulties recently. Pt states her was in the hospital recently due to a GI Bleed and she worries about him. SW will continue to follow for discharge needs and support to pt as needed. ROBERT Miguel
[2021-07-26 15:08] VITALS: BMI 43.5
[2021-07-26 20:00] VITALS: BP 105/56; PULSE 91; RESP 18; TEMP 36.8; O2SAT 96; BMI 43.5
[2021-07-26] MEDS: Atorvastatin Calcium 80 MG Tablet PO (20:09)
[2021-07-26 20:10] VITALS: BP 105/56; PULSE 91
[2021-07-26 22:10] VITALS: PULSE 90; O2SAT 98
--- NOTE | 2021-07-27 03:15 | NURSING ---
Reviewed and agree with RUSTIC TERRAZZO SETTER note and assessment.
[2021-07-27 07:22] LABS: Hematocrit 28.3 % (37-47)
[2021-07-27 07:30] VITALS: BP 127/69; PULSE 91; RESP 16; TEMP 36.6; O2SAT 98
[2021-07-27] MEDS: Aspirin 81 MG TAB.CHEW PO (07:51)
[2021-07-27] MEDS: Pantoprazole Sodium 40 MG Tablet PO (07:51)
[2021-07-27 07:52] VITALS: PULSE 78
[2021-07-27] MEDS: Metoprolol Tartrate 25 MG Tablet 75 MG PO ×2 (07:52→21:49)
[2021-07-27] MEDS: APIXABAN 5 MG TABLET PO ×2 (07:52→21:48)
[2021-07-27] MEDS: Cholecalciferol (VIT D3) 25 MCG TABLET (1,000 UNITS) 125 MCG PO (07:53)
[2021-07-27] MEDS: Acetaminophen 325 MG Tablet 650 MG PO (07:54)
[2021-07-27] MEDS: Nystatin Powder 15gm Bottle 1 APPLIC TOPICAL ×2 (07:55→21:52)
[2021-07-27 08:50] VITALS: PULSE 88
--- NOTE | 2021-07-27 10:55 | PCM.PN.BLA ---
Progress Note Afebrile Vital signs are stable and the blood pressure is well controlled. The heart rate is consistently 72-91 over the past few days. Maintaining appropriate oxygen saturation on room air. Adequate oral intake. Hemoglobin is stable at 9.0. no problems reported by nursing therapy notes were reviewed. she has some R groin pain after therapy but it resolves when she rests. Physical Exam Const alert, oriented x3 and no apparent distress Constitutional Narrative: Lying in bed. NAD. General Appearance: cooperative Chest Chest: symmetrical chest wall rise Resp clear to auscultation bilaterally Resp Narrative: No rales or wheezes Cardio regular rate, regular rhythm, S1 normal heart sound, S2 normal heart sound and no gallops GI normal to inspection, nondistended, normoactive bowel sounds, soft to palpation and non-tender GI Narrative: The R groin hematoma is stable. No erythema in the area of the puncture. minimal pain with palpation of the groin. Extremity no calf tenderness and no pedal edema Extremity Narrative: JOE wraps are in place Skin Skin Narrative: ecchymosis is resolving of the R groin and the R medial thigh General Skin Exam: no breakdown Rashes: no rashes Assessment & Plan Assessment/Plan (1) Physical debility: (2) Acute ischemic right MCA stroke: (3) Pseudoaneurysm following procedure: (4) Anemia due to acute blood loss: (5) GI bleed: (6) Chronic anticoagulation: PLAN: 1. continue therapy 2. No change in the medications today 3. Continue daily groin checks. 4. HGB is stable and the hemoccult stool was negative. Visit Charges Inpatient E&M: 16362 Subs Hosp L2
[2021-07-27 16:24] VITALS: BMI 43.5
[2021-07-27 19:27] VITALS: BP 114/66; PULSE 80; RESP 17; TEMP 36.1; O2SAT 96
[2021-07-27 21:08] VITALS: BMI 43.5
[2021-07-27] MEDS: Atorvastatin Calcium 80 MG Tablet PO (21:48)
[2021-07-27 21:49] VITALS: BP 133/72; PULSE 88
[2021-07-28] MEDS: Acetaminophen 325 MG Tablet 650 MG PO ×3 (04:53→17:32)
--- NOTE | 2021-07-28 06:02 | NURSING ---
Pt c/o pain to rt thigh near groin. Site inspected and pt denies that the pain is in the groin, but below it in the rt upper thigh. Tylenol provided. Dr Patel called @ 05:50 per NRS/Comm for pain at site. Pt grimacing and says she can't settle down with this pain. Pt states it feels raw & sharp @ 05:50. Message left for Dr Patel. Hospitalist, Dr Leavitt, paged @ 05:57 re: pt issues. Dr Leavitt ordered pain meds at this time. Dr Leavitt stated that she declines ordering any imaging at this time.
[2021-07-28] MEDS: traMADol 50 MG Tablet PO ×3 (06:20→21:41)
[2021-07-28 07:26] LABS: Hematocrit 28.1 % (37-47); Hemoglobin 8.7 g/dL (12.0-15.0)
--- NOTE | 2021-07-28 07:56 | PN_ITS ---
Progress Note AF VSS maintaining good oxygen saturation on RA. Nursing reports she was up most of the night c/o pain in the medial R groin and medial thigh. She describes this pain as sharp but, means severe. The pain is burning and radiates to the knee. She received Tramadol from the night hospitalist and it di not help. Changing positions does not relieve. The R foot is warm and she has no pain distal to the knee. She has intact sensation. The hematoma in the R groin feels a little larger but, it is not rapidly expanding. Bruising is resolving She has hyperaesthesia of the Medial upper thigh. Palpation of the R upper medial thigh caused shooting pain to the knee. Impressions 1. new severe R medial groin and upper thigh pain radiating to the knee in pt with known pseudoaneurysm post thrombectomy for R MCA CVA. CTA of the pelvis and the tech will extend into the upper thigh 2. Gabapentin 200 mg now and then schedule 100mg BID and 200 mg at HS if there is no sign of active extravasation. If there is active extravasation will need to transfer to [facility] to be evaluated by vascular surgery or consult vascular surgery at [place] but, will have to check to see if there is a vascular surgeon on this weekend Visit Charges Inpatient E&M: 26589 Subs Hosp L2
--- NOTE | 2021-07-28 08:00 | CT_ITS ---
STUDY: CT PELVIS WITH CONTRAST REASON FOR EXAM: Female, 81 years old. History of pseudoaneurysm post thrombectomy R groi -- severe pain R medial groin and upper medial thigh RADIATION DOSAGE (If Supplied By Facility): CTDIvol = ( 36.44 ) mGy, DLP = ( 1271.86 ) mGycm TECHNIQUE: Transaxial imaging of the pelvis was performed without oral contrast. IV 100mL Isovue-370 was administered intravenously. Individualized dose optimization techniques were used for this CT. COMPARISON: None. FINDINGS: Normal urinary bladder. Normal visualized small intestine. Normal visualized colon. There is no pelvic fluid. There is no pelvic lymphadenopathy or mass lesion. Normal visualized pelvic arteries. 6 cm multilobulated mass of soft tissue attenuation anterior to the distal right common femoral artery and the proximal right superficial femoral artery consistent with a hematoma likely from recent catheterization. Furthermore, within this area is a 2 cm area of dense contrast enhancement anterior to the distal common femoral artery consistent with a pseudoaneurysm. Normal abdominal wall. Normal osseous structures. CT/CTA Pelvis W/WO Contrast IMPRESSION: 2 cm pseudoaneurysm of the distal anterior right common femoral artery with surrounding hematoma. Electronically Signed: Bry Shipley MD at 10:59 EDT Tel , Service support ,
[2021-07-28 08:05] VITALS: BP 125/69; PULSE 82; RESP 18; TEMP 36.7; O2SAT 94
[2021-07-28 08:47] VITALS: PULSE 77
[2021-07-28] MEDS: Cholecalciferol (VIT D3) 25 MCG TABLET (1,000 UNITS) 125 MCG PO (08:47)
[2021-07-28] MEDS: Metoprolol Tartrate 25 MG Tablet 75 MG PO ×2 (08:47→21:34)
[2021-07-28] MEDS: Pantoprazole Sodium 40 MG Tablet PO (08:48)
[2021-07-28] MEDS: Gabapentin 100 MG Capsule 200 MG PO ×2 (08:48→21:34)
[2021-07-28] MEDS: APIXABAN 5 MG TABLET PO ×2 (11:35→21:34)
[2021-07-28] MEDS: Aspirin 81 MG TAB.CHEW PO (11:36)
[2021-07-28 16:48] VITALS: BMI 43.5
[2021-07-28] MEDS: Gabapentin 100 MG Capsule PO (17:15)
[2021-07-28 20:46] VITALS: BP 121/50; PULSE 72; RESP 18; TEMP 36.4; O2SAT 94
[2021-07-28 21:34] VITALS: BP 121/50; PULSE 72
[2021-07-28] MEDS: Nystatin Powder 15gm Bottle 1 APPLIC TOPICAL (21:34)
[2021-07-28] MEDS: Atorvastatin Calcium 80 MG Tablet PO (21:34)
[2021-07-29] MEDS: Acetaminophen 325 MG Tablet 650 MG PO ×2 (00:54→08:36)
[2021-07-29 01:15] VITALS: BMI 43.5
[2021-07-29] MEDS: traMADol 50 MG Tablet PO ×3 (05:23→20:44)
[2021-07-29] MEDS: 0.9% Saline Lock 10 ML Syringe IV ×2 (05:34→22:08)
[2021-07-29 07:04] LABS: Hematocrit 28.5 % (37-47); Hemoglobin 8.8 g/dL (12.0-15.0)
[2021-07-29 08:16] VITALS: BP 138/84; PULSE 94; RESP 18; TEMP 36.6; O2SAT 96
[2021-07-29 08:35] VITALS: BP 138/84; PULSE 94
[2021-07-29] MEDS: Metoprolol Tartrate 25 MG Tablet 75 MG PO ×2 (08:35→20:45)
[2021-07-29] MEDS: Aspirin 81 MG TAB.CHEW PO (08:35)
[2021-07-29] MEDS: Pantoprazole Sodium 40 MG Tablet PO (08:36)
[2021-07-29] MEDS: APIXABAN 5 MG TABLET PO ×2 (08:36→20:44)
[2021-07-29] MEDS: Cholecalciferol (VIT D3) 25 MCG TABLET (1,000 UNITS) 125 MCG PO (08:36)
[2021-07-29] MEDS: Gabapentin 100 MG Capsule PO ×2 (08:36→17:15)
--- NOTE | 2021-07-29 09:25 | PN_ITS ---
Progress Note Afebrile VSS Maintaining appropriate oxygen saturation on RA Oral intake is good Discussed with nursing - The night nurses related that she is having urinary urgency and the urine is cloudy. She is afebrile and denies dysuria. Reviewed the PT/OT/ST notes Medication list reviewed. She had 3 doses of tramadol 50 mg yesterday and she had 1 when she woke up this morning. She was started on Gabapentin yesterday for suspected R Femoral nerve compression due to the large hematoma in the R groin. The CTA did not mention any active bleeding. All lab was personally reviewed. Hemoglobin is stable at 8.8. Xiomara denies hematuria, chest pain, shortness of breath, palpitations, lightheadedness, nausea/vomiting, abdominal pain, flank pain. The pain in the R groin/medial thigh is better with the Gabapentin. Physical Exam Const alert and no apparent distress Constitutional Narrative: looks comfortable sitting in the recliner at the bedside General Appearance: cooperative Eyes PERRL, EOMs intact bilaterally, conjunctivae normal and no scleral icterus Resp normal respiratory effort and clear to auscultation bilaterally Effort and Inspection: able to speak in complete sentences Cardio regular rate, regular rhythm and no gallops GI normal to inspection, nondistended, normoactive bowel sounds, soft to palpation and non-tender GI Narrative: stool is brown. Hemoccult was negative Bladder / Kidney Exam: No CVA tenderness Groin / Perineum Exam: ecchymosis; Negative for erythema or inguinal lymphaden opathy Extremity no calf tenderness Extremity Narrative: BL LE edema - more likely than not due to venous insufficiency. Feet are warm and she has intact sensation Skin Rashes: no rashes Assessment & Plan Assessment/Plan (1) Physical debility: (2) Urinary urgency: (3) Acute ischemic right MCA stroke: (4) Pseudoaneurysm following procedure: PLAN: 1. Straight cath for a complete UA. Will order a urine culture if she has pyuria. 2. Continued therapy Visit Charges Inpatient E&M: 66061 Subs Hosp L2
--- NOTE | 2021-07-29 14:15 | CASEMGMT ---
Social Work Team meeting held. Patient present as well as patient spouse. No discharge date. Patient to continue with further care and treatment on the Rehab Unit. Patient approved 23 Medicare days with patient to discharge on or by 08/16/2021. Patient plans to discharge to home with spouse. Social work to continue to follow. Jason OCONNELL, ROBERT
[2021-07-29 15:43] VITALS: BMI 43.5
[2021-07-29 19:43] VITALS: BP 136/83; PULSE 100; RESP 14; TEMP 36.5; O2SAT 95
[2021-07-29 20:30] VITALS: PULSE 100; O2SAT 95; BMI 43.5
[2021-07-29] MEDS: Atorvastatin Calcium 80 MG Tablet PO (20:43)
[2021-07-29] MEDS: Gabapentin 100 MG Capsule 200 MG PO (20:44)
[2021-07-29 20:45] VITALS: BP 136/83; PULSE 100
[2021-07-29] MEDS: Nystatin Powder 15gm Bottle 1 APPLIC TOPICAL (20:46)
--- NOTE | 2021-07-29 21:04 | NURSING ---
urine collected for completed ua as per order
[2021-07-29 21:09] LABS: Mucous, Urine 0 SEEN /hpf (<or=2+)
[2021-07-29 21:37] LABS: Color, Urine Yellow (Yellow); Glucose, Dipstick Normal (Normal); Ketone-Dipstick Negative (Negative); Leukocyte Esterase-Dipstick 500 /ul (Negative); Nitrite-Dipstick Negative (Negative); Occult Blood-Urine 10 /ul (Negative); Protein-Dipstick Negative (Negative); Urine Bilirubin Dipstick Negative (Negative); Urine Clarity Sl. Cloudy (Clear); Urine Urobilinogen Normal (Normal)
[2021-07-29 21:50] LABS: Red Blood Cells-Urine 0-5 SEEN /hpf (0-5); Squamous Epithelial Cells - UA 0-5 SEEN /hpf (5-10); White Blood Cells 10-25 SEEN /hpf (0-5)
[2021-07-29 21:51] LABS: Bacteria RARE /hpf (None Seen)
--- NOTE | 2021-07-29 22:20 | NURSING ---
IV to BEN painful when flushed and discontinued.
--- NOTE | 2021-07-30 03:02 | NURSING ---
Reviewed and agree with CARDIOLOGY PHYSICIAN ASSISTANT documentation and charting.
[2021-07-30] MEDS: traMADol 50 MG Tablet PO ×3 (05:06→17:42)
[2021-07-30 05:47] LABS: Hematocrit 28.8 % (37-47); Hemoglobin 8.9 g/dL (12.0-15.0)
[2021-07-30 07:56] VITALS: BP 146/76; PULSE 65
[2021-07-30] MEDS: APIXABAN 5 MG TABLET PO ×2 (07:56→21:48)
[2021-07-30] MEDS: Pantoprazole Sodium 40 MG Tablet PO (07:56)
[2021-07-30] MEDS: Aspirin 81 MG TAB.CHEW PO (07:56)
[2021-07-30] MEDS: Cholecalciferol (VIT D3) 25 MCG TABLET (1,000 UNITS) 125 MCG PO (07:56)
[2021-07-30] MEDS: Gabapentin 100 MG Capsule PO ×2 (07:56→17:40)
[2021-07-30] MEDS: Metoprolol Tartrate 25 MG Tablet 75 MG PO ×2 (07:56→21:52)
[2021-07-30] MEDS: Nystatin Powder 15gm Bottle 1 APPLIC TOPICAL ×2 (07:57→21:49)
[2021-07-30] MEDS: Acetaminophen 325 MG Tablet 650 MG PO (08:02)
[2021-07-30 08:30] VITALS: BP 146/76; PULSE 65; RESP 16; TEMP 36.6; O2SAT 95
[2021-07-30 14:34] VITALS: BMI 43.5
[2021-07-30 19:54] VITALS: BP 126/72; PULSE 89; RESP 16; TEMP 36.5; O2SAT 93
[2021-07-30] MEDS: Gabapentin 100 MG Capsule 200 MG PO (21:48)
[2021-07-30] MEDS: Atorvastatin Calcium 80 MG Tablet PO (21:48)
[2021-07-30] MEDS: Cefadroxil 500 MG CAPSULE PO (21:49)
[2021-07-30 21:52] VITALS: BP 126/72; PULSE 89
[2021-07-30 22:00] VITALS: RESP 16
[2021-07-31] MEDS: traMADol 50 MG Tablet PO ×3 (01:17→17:07)
[2021-07-31] MEDS: Acetaminophen 325 MG Tablet 650 MG PO (05:25)
[2021-07-31 06:04] LABS: Hematocrit 28.2 % (37-47); Hemoglobin 8.7 g/dL (12.0-15.0)
[2021-07-31 07:28] VITALS: BP 117/65; PULSE 79; RESP 16; TEMP 36.6; O2SAT 95
[2021-07-31 08:24] VITALS: BP 117/65; PULSE 79
[2021-07-31] MEDS: Pantoprazole Sodium 40 MG Tablet PO (08:24)
[2021-07-31] MEDS: Aspirin 81 MG TAB.CHEW PO (08:24)
[2021-07-31] MEDS: Metoprolol Tartrate 25 MG Tablet 75 MG PO ×2 (08:24→21:55)
[2021-07-31] MEDS: APIXABAN 5 MG TABLET PO ×2 (08:24→21:55)
[2021-07-31] MEDS: Gabapentin 100 MG Capsule PO ×2 (08:24→17:05)
[2021-07-31] MEDS: Cefadroxil 500 MG CAPSULE PO ×2 (08:24→21:55)
[2021-07-31] MEDS: Cholecalciferol (VIT D3) 25 MCG TABLET (1,000 UNITS) 125 MCG PO (08:25)
[2021-07-31] MEDS: Nystatin Powder 15gm Bottle 1 APPLIC TOPICAL ×2 (08:26→21:55)
--- NOTE | 2021-07-31 11:26 | PCM.PN.BLA ---
Progress Note Afebrile VSS Maintaining appropriate oxygen saturation on RA Oral intake is good Discussed with nursing - no problems that need addressed. she is sleeping good and the radicular pain in the R groin is controlled Reviewed the PT/OT notes Medication list reviewed. She denies calf pain, shortness of breath, hemoptysis, cough, nausea/vomiting, flank pain. She does have urinary urgency. Final result on the urine culture is pending. She is currently on Duricef. Denies dysuria. Physical Exam Const alert and no apparent distress Resp normal respiratory effort and clear to auscultation bilaterally Resp Narrative: Diminished breath sounds-more likely than not secondary to body habitus. No wheezes, rhonchi or rails. Cardio regular rate, regular rhythm, no rub and no gallops GI normal to inspection, nondistended, normoactive bowel sounds, soft to palpation and non-tender Extremity Extremity Narrative: the Hematoma is stable by palpation. No erythema of the R groin. No pain with palpation of the upper R medial thigh any longer Assessment & Plan Assessment/Plan (1) Cystitis: (2) Radicular pain of right lower extremity: (3) Physical debility: (4) Anemia due to acute blood loss: (5) Chronic anticoagulation: (6) Atrial fibrillation: (7) Pseudoaneurysm following procedure: (8) Acute ischemic right MCA stroke: PLAN: 1. Continue Duricef and await the results of the urine culture/sensitivities. She is no longer complaining of dysuria or urgency and she is afebrile. 2. Hemoglobin is stable at 8.7 today. Continue to monitor the right groin daily. 3. Continue the Eliquis. Visit Charges Inpatient E&M: 57753 Subs Hosp L2
[2021-07-31 13:24] VITALS: BMI 43.5
[2021-07-31 19:30] VITALS: BP 131/80; PULSE 80; RESP 14; TEMP 36.4; O2SAT 96
[2021-07-31] MEDS: Gabapentin 100 MG Capsule 200 MG PO (21:54)
[2021-07-31 21:55] VITALS: BP 131/80; PULSE 80
[2021-07-31] MEDS: Atorvastatin Calcium 80 MG Tablet PO (21:55)
[2021-08-01 00:45] VITALS: BMI 43.5
[2021-08-01] MEDS: traMADol 50 MG Tablet PO ×2 (05:37→12:37)
[2021-08-01 07:57] VITALS: BP 132/72; PULSE 71; RESP 18; TEMP 36.8; O2SAT 97
[2021-08-01 09:18] VITALS: PULSE 70
[2021-08-01] MEDS: Cholecalciferol (VIT D3) 25 MCG TABLET (1,000 UNITS) 125 MCG PO (09:18)
[2021-08-01] MEDS: Cefadroxil 500 MG CAPSULE PO ×2 (09:18→22:06)
[2021-08-01] MEDS: APIXABAN 5 MG TABLET PO ×2 (09:18→22:06)
[2021-08-01] MEDS: Metoprolol Tartrate 25 MG Tablet 75 MG PO ×2 (09:18→22:06)
[2021-08-01] MEDS: Pantoprazole Sodium 40 MG Tablet PO (09:18)
[2021-08-01] MEDS: Nystatin Powder 15gm Bottle 1 APPLIC TOPICAL ×2 (09:20→22:07)
[2021-08-01] MEDS: Gabapentin 100 MG Capsule PO ×2 (09:26→16:57)
[2021-08-01] MEDS: Acetaminophen 325 MG Tablet 650 MG PO ×2 (09:26→20:15)
[2021-08-01] MEDS: Aspirin 81 MG TAB.CHEW PO (09:26)
[2021-08-01 14:56] VITALS: BMI 43.5
[2021-08-01 19:33] VITALS: BP 125/78; PULSE 84; RESP 17; TEMP 36.7; O2SAT 96
[2021-08-01] MEDS: Gabapentin 100 MG Capsule 200 MG PO (20:15)
[2021-08-01 22:06] VITALS: BP 125/78; PULSE 84
[2021-08-01] MEDS: Atorvastatin Calcium 80 MG Tablet PO (22:06)
[2021-08-02 01:17] VITALS: BMI 43.5
[2021-08-02] MEDS: Nystatin Powder 15gm Bottle 1 APPLIC TOPICAL ×2 (05:10→20:53)
--- NOTE | 2021-08-02 06:52 | NURSING ---
REVIEWED AND AGREE WITH AWS ARCHITECT'S FUNCTIONAL ASSESSMENT AND HANDOFF CHARTING.
[2021-08-02] MEDS: Aspirin 81 MG TAB.CHEW PO (07:39)
[2021-08-02] MEDS: traMADol 50 MG Tablet PO ×2 (07:39→13:40)
[2021-08-02] MEDS: Pantoprazole Sodium 40 MG Tablet PO (07:39)
[2021-08-02] MEDS: Gabapentin 100 MG Capsule PO ×2 (07:39→16:36)
[2021-08-02] MEDS: Cholecalciferol (VIT D3) 25 MCG TABLET (1,000 UNITS) 125 MCG PO (07:39)
[2021-08-02 08:38] VITALS: BP 118/56; PULSE 84; RESP 16; TEMP 36.1; O2SAT 96
[2021-08-02] MEDS: APIXABAN 5 MG TABLET PO ×2 (10:41→20:52)
[2021-08-02] MEDS: Cefadroxil 500 MG CAPSULE PO (10:42)
[2021-08-02] MEDS: Acetaminophen 325 MG Tablet 650 MG PO ×2 (10:47→20:56)
[2021-08-02 11:35] VITALS: PULSE 78
[2021-08-02] MEDS: Metoprolol Tartrate 25 MG Tablet 75 MG PO ×2 (11:35→20:52)
[2021-08-02 15:37] VITALS: BMI 43.5
--- NOTE | 2021-08-02 16:19 | PCM.PN.BLA ---
Progress Note day #1/ Afebrile VSS-blood pressure is well controlled. She denies lightheadedness. The heart rate is within normal limits. Maintaining appropriate oxygen saturation on RA Oral intake is good Discussed with nursing - no problems that need addressed. She is allowed to do some exercise with the RLE today. HGB is stable and the pain in the R medial thigh is better....not as burning. She slept well last night and only got up once to use the BR. Feels well rested today. Reviewed the PT/OT notes. She made brownies today in the kitchen and stood for 10 minutes with no increase in the pain and no LOB. Still weaker on the Left side. Medication list reviewed. States the pain is adequately controlled. No complaints today. Specifically denies CP, SOB, hemoptysis, calf pain. Bowels are regular and she denies dysuria. She has had urgency for a long time and she sometimes has urge incontinence and this is why she does not want to drink water. Physical Exam Const alert, oriented x3 and no apparent distress Constitutional Narrative: sitting in the recliner and appears comfortable. General Appearance: cooperative Eyes PERRL, EOMs intact bilaterally, conjunctivae normal and no scleral icterus Neck supple and no carotid bruits General: trachea midline Chest Chest: symmetrical chest wall rise Resp clear to auscultation bilaterally Resp Narrative: No rales or wheezes Cardio regular rhythm, S1 normal heart sound, S2 normal heart sound, no murmurs, no gallops and no clicks Cardio Narrative: The HR resting was a little high today and her MM are dry so she was instructed to increase her water intake GI normal to inspection, nondistended, normoactive bowel sounds, soft to palpation, non-tender and no masses GI Narrative: The R groin hematoma is stable. No erythema in the area of the puncture. minimal pain with palpation of the groin. The hematoma feels smaller. Extremity no calf tenderness and no pedal edema Extremity Narrative: JOE wraps are in place General Extremity: Negative for calf tenderness or cyanosis Skin Skin Narrative: ecchymosis is resolving of the R groin and the R medial thigh General Skin Exam: no breakdown Rashes: no rashes Psych mental status grossly normal, thought process normal, cooperative and affect normal Assessment & Plan Assessment/Plan (1) Physical debility: (2) Acute ischemic right MCA stroke: (3) Pseudoaneurysm following procedure: (4) Anemia due to acute blood loss: (5) Cystitis: (6) Hypertension: (7) Hyperlipidemia: (8) GI bleed: (9) Chronic anticoagulation: (10) Atrial fibrillation: (11) Radicular pain of right lower extremity: PLAN: 1. The Citrobacter youngae is resistant to first generation cephalosporins and the antibiotic has been changed to Levaquin 250 mg p.o. daily x5 days. 2. Continue therapy 3. Hemoglobin is stable and the hematoma is decreasing in size. Will discontinue daily hemoglobins and recheck a CBC next week. 4. Your gabapentin for radicular pain in the right medial thigh secondary to femoral nerve compression from the hematoma 5. Continue Eliquis Visit Charges Inpatient E&M: 38103 Subs Hosp L2
[2021-08-02 20:23] VITALS: BP 129/68; PULSE 82; RESP 18; TEMP 36.3; O2SAT 97
[2021-08-02 20:52] VITALS: BP 129/68; PULSE 82
[2021-08-02] MEDS: Atorvastatin Calcium 80 MG Tablet PO (20:52)
[2021-08-02] MEDS: Gabapentin 100 MG Capsule 200 MG PO (20:52)
[2021-08-02 21:00] VITALS: BMI 43.5
[2021-08-03] MEDS: Nystatin Powder 15gm Bottle 1 APPLIC TOPICAL ×2 (06:29→20:45)
[2021-08-03] MEDS: levoFLOXacin 250 MG Tablet PO (06:29)
[2021-08-03] MEDS: traMADol 50 MG Tablet PO ×3 (06:29→20:44)
[2021-08-03 08:00] VITALS: PULSE 77
[2021-08-03] MEDS: Cholecalciferol (VIT D3) 25 MCG TABLET (1,000 UNITS) 125 MCG PO (08:00)
[2021-08-03] MEDS: Metoprolol Tartrate 25 MG Tablet 75 MG PO ×2 (08:00→20:44)
[2021-08-03] MEDS: Aspirin 81 MG TAB.CHEW PO (08:00)
[2021-08-03] MEDS: Gabapentin 100 MG Capsule PO ×2 (08:00→16:31)
[2021-08-03] MEDS: Pantoprazole Sodium 40 MG Tablet PO (08:00)
[2021-08-03] MEDS: APIXABAN 5 MG TABLET PO ×2 (08:02→20:44)
[2021-08-03 08:24] VITALS: BP 111/53; PULSE 64; RESP 16; TEMP 36.3; O2SAT 96
[2021-08-03 12:47] VITALS: BMI 43.5
[2021-08-03] MEDS: Acetaminophen 325 MG Tablet 650 MG PO (16:31)
[2021-08-03 19:20] VITALS: BP 140/70; PULSE 68; RESP 16; TEMP 36.5; O2SAT 97
[2021-08-03 20:44] VITALS: PULSE 68
[2021-08-03] MEDS: Atorvastatin Calcium 80 MG Tablet PO (20:44)
[2021-08-03] MEDS: Gabapentin 100 MG Capsule 200 MG PO (20:44)
[2021-08-03 21:14] VITALS: BMI 43.5
[2021-08-04] MEDS: levoFLOXacin 250 MG Tablet PO (05:22)
[2021-08-04] MEDS: traMADol 50 MG Tablet PO ×3 (05:22→19:27)
[2021-08-04] MEDS: Nystatin Powder 15gm Bottle 1 APPLIC TOPICAL ×2 (05:24→19:27)
[2021-08-04 07:10] VITALS: BP 140/80; PULSE 83; RESP 16; TEMP 36.6; O2SAT 94
[2021-08-04 08:34] VITALS: PULSE 70
[2021-08-04] MEDS: Pantoprazole Sodium 40 MG Tablet PO (08:34)
[2021-08-04] MEDS: Aspirin 81 MG TAB.CHEW PO (08:34)
[2021-08-04] MEDS: Cholecalciferol (VIT D3) 25 MCG TABLET (1,000 UNITS) 125 MCG PO (08:34)
[2021-08-04] MEDS: Gabapentin 100 MG Capsule PO ×2 (08:34→16:29)
[2021-08-04] MEDS: Metoprolol Tartrate 25 MG Tablet 75 MG PO ×2 (08:34→19:25)
[2021-08-04] MEDS: APIXABAN 5 MG TABLET PO ×2 (08:36→19:24)
[2021-08-04 10:16] VITALS: BMI 43.5
[2021-08-04] MEDS: Gabapentin 100 MG Capsule 200 MG PO (19:24)
[2021-08-04 19:25] VITALS: PULSE 76
[2021-08-04] MEDS: Atorvastatin Calcium 80 MG Tablet PO (19:26)
[2021-08-04 19:27] VITALS: BP 125/63; PULSE 76; RESP 16; TEMP 36.7; O2SAT 96
[2021-08-05 01:10] VITALS: BMI 43.5
[2021-08-05] MEDS: Nystatin Powder 15gm Bottle 1 APPLIC TOPICAL ×2 (05:35→20:02)
[2021-08-05] MEDS: levoFLOXacin 250 MG Tablet PO (05:35)
[2021-08-05] MEDS: Acetaminophen 325 MG Tablet 650 MG PO ×2 (05:49→12:01)
[2021-08-05 07:42] VITALS: BP 115/71; PULSE 70; PULSE 84; RESP 18; TEMP 36.9; O2SAT 95
[2021-08-05] MEDS: Pantoprazole Sodium 40 MG Tablet PO (07:42)
[2021-08-05] MEDS: Aspirin 81 MG TAB.CHEW PO (07:42)
[2021-08-05] MEDS: traMADol 50 MG Tablet PO ×2 (07:42→15:24)
[2021-08-05] MEDS: Metoprolol Tartrate 25 MG Tablet 75 MG PO ×2 (07:42→20:01)
[2021-08-05] MEDS: APIXABAN 5 MG TABLET PO ×2 (07:42→20:01)
[2021-08-05] MEDS: Cholecalciferol (VIT D3) 25 MCG TABLET (1,000 UNITS) 125 MCG PO (07:42)
[2021-08-05] MEDS: Gabapentin 100 MG Capsule PO ×2 (07:42→17:26)
--- NOTE | 2021-08-05 11:59 | PN_ITS ---
Progress Note Day #4/5 of Levaquin for Citrobacter UTI Xiomara was seen on team rounds today. Her Mark was present in the room. Afebrile VSS Maintaining appropriate oxygen saturation on RA Oral intake is good Discussed with nursing - no problems that need addressed Reviewed the PT/OT notes Medication list reviewed. She is c/o increased swelling in the R>L leg. She denies calf pain. She denies CP, hemoptysis. No palpitations, lightheadedness. still having some R groin pain but much better than it was. She is sleeping well now. She is requesting to go home prior to the date set by medicare and we have agreed on Aug 10. The SW will arrange the O2. The STOP BANG score is 4 and this places her at high risk for RAVEN. In addition she has PAF. She wakes up at night only when she is sleeping on her back and not when she is sleeping on her side. Her says she is sometimes restless at night. Physical Exam Const alert, oriented x3 and no apparent distress General Appearance: cooperative Resp normal respiratory effort and clear to auscultation bilaterally Resp Narrative: mildly diminished - more likely than not due to body habitus Effort and Inspection: able to speak in complete sentences Cardio no rub and no gallops Cardio Narrative: irregular but with normal HR GI normal to inspection, nondistended, normoactive bowel sounds and non-tender Extremity Extremity Narrative: can filling and closing machine tender to palpation in the R groin. The hematoma does not seem to be any larger. There is no erythema and no increased warmth to touch in the area. The pitting edema in the R leg is greater than the left. The JOE wrap on the R leg has fallen down and is no longer providing compression. She may benefit from Cysaids in the future to control the edema. She has a negative Amaury's and a negative Vishal's Skin General Skin Exam: no breakdown Rashes: no rashes Psych mental status grossly normal, thought process normal, cooperative and affect normal Assessment & Plan Assessment/Plan (1) Physical debility: (2) Acute ischemic right MCA stroke: (3) Pseudoaneurysm following procedure: (4) Radicular pain of right lower extremity: (5) Cystitis: (6) GI bleed: (7) Anemia due to acute blood loss: (8) Hypertension: (9) Chronic anticoagulation: (10) Atrial fibrillation: PLAN: 1. finish 5 days of Levaquin for cystitis - Not catheter associated 2. venous US of the RLE today to r/o DVT associated with hematoma compressing femoral vein 3. check a CBC in the AM 4. Start ferrous sulfate 325 mg daily plus vitamin C 1 g p.o. daily with the iron supplement. 5. Continue therapy. Will bring Mark in for family training prior to DC to see if he will be able to lift her legs into bed because at this time she is unable to do this in the hospital and the bed at home is higher and she needs a step to get up onto the bed. She does have a recliner at home and this is an option if Mark is not able to lift her legs. 6. she has a high STOP BANG score and AF. She has now had a stroke. She carries a dx of RAVEN but, I do not know how this dx was made. The SW will try and schedule a sleep study prior to DC. she may be a candidate for a home sleep study? She has pulmonary HTN but, this could be due to Aortic stenosis in the past? Visit Charges Inpatient E&M: 82144 Subs Hosp L2
[2021-08-05 12:57] VITALS: BMI 43.5
--- NOTE | 2021-08-05 13:45 | VDLE_ITS ---
Reason For Study: SWELLING RIGHT Technically limited study due to body habitus. Venous system assessed with color doppler to rule out DVT. RT CFV, SFJ, FV, POPV, T/P TRUNK, PTV, and PEROV fill with color and are pulsatile. RT Pseudoaneurysm noted off RT Distal BERRY PLANTER measuring 3.86 x 2.60 cm with a neck measuring .31 cm . Pseudoaneurysm noted on CTA 07/28/21 measuring 2 cm. Procedure Exam performed portable in patient room. This is a venous duplex using B-mode, color flow and spectral Doppler. The study was technically limited. A preliminary report was called and/or faxed to [facility]. VL/Venous Duplex US, Unilateral Interpretation Summary 3.86 x 2.6 cm right groin pseudoaneurysm seemingly communicating with distal ri ght common femoral artery. Neck 0.31cm Previous image CTA 07/28/21 suggested 2cm Technically difficult study secondary to body habitus Right lower extremity veins fill with color but demonstrate pulsitile flow. No evidence for acute deep venous thrombosis Ordering Physician: Melissa Patel Referring Physician: JUANJO CORDON Performed By: Lianet Benitez, CRESENCIO, RVT
--- NOTE | 2021-08-05 15:31 | CASEMGMT ---
Social Work IDT met with patient and for Team meeting. Discussed patient's progress in therapy and nursing. Pt progressing well. Explained Medicare approved 23 days with EDC 08/16. Pt states she feels ready to go home prior. feels comfortable with caring for her at her needed level of assistance. IDT and pt agreed to [facility] 08/10. ordering sleep study at [facility]. Pt using O2 at night. [place] [facility] outcome of sleep study. Overnight trending pulse ox completed upon admission. Pt requesting [facility]. Provided [facility] list with quality and resource data. Pt prefers [facility]. Referral made for PT/OT/SN. Referral to to sleep lab. Will continue to follow. Mariely Schreiber, LOAD DISPATCHER LOCAL FOOD SANITARIAN
--- NOTE | 2021-08-05 16:57 | CHAPLAIN ---
Type of Pastoral Visit _x__ Initial Visit ___ Follow-up Visit ___ On-call Visit ___ General Patient Visit ___ Spiritual Assessment ___ Family Conference ___ Bereavement ___ Rapid Response ___ Code Blue ___ Other (describe below) Pastoral Care Referral From _x__ Patient ___ Family ___ Nurse ___ Physician ___ Dietary Services Director ___ Senior Energy Market Coordinator ___ Other (describe below) Sacrament/Intervention _x__ Active listening ___ Anointing ___ Denominational ___ Bereavement ___ Communion _x__ Deanna exploration ___ _x__ Life review _x__ Prayer ___ Reconciliation ___ Sacrament of Sick _x__ Supportive presence ___ Wedding ___ Other (describe below) Pastoral Comments patient is talkative about her life; pt begins by saying you have come at a good time because waiting for a test result; pt recounts the health needs of herself and her over the last few months; pt has children in the state but not very close by; pt has connection to local nondenominational; prayer welcomed
--- NOTE | 2021-08-05 17:27 | NURSING ---
Neck circumference is 36cm.
[2021-08-05 19:59] VITALS: BP 144/81; PULSE 81; RESP 18; TEMP 36.6; O2SAT 95
[2021-08-05 20:01] VITALS: BP 144/81; PULSE 81
[2021-08-05] MEDS: Atorvastatin Calcium 80 MG Tablet PO (20:01)
[2021-08-05] MEDS: Gabapentin 100 MG Capsule 200 MG PO (20:01)
[2021-08-06 01:27] VITALS: BMI 43.5
[2021-08-06] MEDS: levoFLOXacin 250 MG Tablet PO (05:28)
[2021-08-06] MEDS: traMADol 50 MG Tablet PO ×2 (05:28→16:18)
[2021-08-06 05:59] LABS: Hematocrit 31.2 % (37-47); Hemoglobin 9.3 g/dL (12.0-15.0); Mean Corp Hgb Conc 29.8 g/dL (32-36); Mean Corpuscular Hgb 29.8 pg (27.0-32.0); Platelet Count 276 K/mm3 (150-450); RBC Distribution Width SD 58.5 fl (35.1-43.9); Red Blood Count 3.12 M/mm3 (4.2-5.4); White Blood Count 6.5 K/mm3 (4.4-11.0)
[2021-08-06] MEDS: Nystatin Powder 15gm Bottle 1 APPLIC TOPICAL ×2 (06:44→20:02)
[2021-08-06 07:30] VITALS: BP 139/80; PULSE 70; RESP 17; TEMP 36.4; O2SAT 92
--- NOTE | 2021-08-06 07:30 | NURSING ---
Received call form Dr Damico r/t Duplex results. pt's Rt Groin psoudoanrysum has increased in size and he would recommend treatment. Dr Patel was notified and Ultra-sound guided Thrombin Injection will be performed this afternoon.
[2021-08-06 08:23] VITALS: BP 139/80; PULSE 70
[2021-08-06] MEDS: Gabapentin 100 MG Capsule PO ×2 (08:23→16:19)
[2021-08-06] MEDS: Metoprolol Tartrate 25 MG Tablet 75 MG PO ×2 (08:23→20:01)
[2021-08-06] MEDS: Pantoprazole Sodium 40 MG Tablet PO (08:24)
[2021-08-06] MEDS: Cholecalciferol (VIT D3) 25 MCG TABLET (1,000 UNITS) 125 MCG PO (08:24)
--- NOTE | 2021-08-06 09:02 | PN_ITS ---
Progress Note Levaquin Day # 5/5 to tx Citrobacter cystitis AF VSS Maintaining appropriate oxygen saturation on RA Oral intake is good Discussed with nursing - no problems that need addressed Reviewed the PT/OT notes Medication list reviewed. The venous US yesterday did not show DVT but, the pseudoaneurysm is enlarging. On the CT scan of the pelvis with contrast on 07/28/2021 the pseudoaneurysm measured 2 cm. The US yesterday showed the current measurement to be 3.86 x 2.6 cm with a neck measuring 0.31 cm. I spoke with Dr. Damico from vascular surgery this morning and he recommends treating the pseudoaneurysm. A consult has been put in and he will treat her today. The HGB has been stable and today it is 9.3. The MCV today is increased at 100 and this is likely due to increased reticulocytes. Eliquis, ASA and plavix have been placed on hold. Dr. Damico has ordered the thrombin. Physical Exam Const alert, oriented x3 and no apparent distress Resp clear to auscultation bilaterally Cardio regular rate and regular rhythm Extremity Extremity Narrative: She has pitting edema of both LE's, R>L. The hematoma anterior to the CHANNEL MARKETING SPECIALIST in the R groin has gotten bigger. It is not pulsatile. The ecchymosis is resolved. She had no pain with palpation of the area. There is no erythema. The foot is warm and she denies pain in the R leg. She has intact sensation in the R foot. Skin Rashes: no rashes Assessment & Plan Assessment/Plan (1) Acute ischemic right MCA stroke: PLAN: On 07/18/21 while she was off anticoagulation due to recent LGI bleed due to diverticular disease. (2) Pseudoaneurysm following procedure: PLAN: Following thrombectomy on 07/18/21 for embolic CVA to the R MCA. No intervention at the previous hospital. HGB's have been stable. The pseudoaneurysm is enlarging and needs to be treated. Vascular surgery consulted and will have thrombin injection today. Will type and cross for 2 units of blood and hold. Hold Eliquis, ASA. Groin checks and pedal pulses every 15 minutes for now. Pt placed in a gown and will prep the R groin. (3) Chronic anticoagulation: PLAN: For atrial fibrillation. Hold now. (4) Atrial fibrillation: PLAN: She has had a recent GI bleed and she has diverticular disease. She had a embolic stroke when Xarelto was held. She now has a pseudoaneurysm that is enlarging and Eliquis is on hold. She may be a good candidate for a Watchman procedure to help minimize the risk for embolic strokes if the anticoagulation has to be held for any length of time. Will D/W cardiology. (5) Radicular pain of right lower extremity: PLAN: The pain is controlled with Gabapentin and there is likely pressure on the superficial femoral nerve due to large hematoma. (6) Anxiety: PLAN: Xanax 0.125 mg every 6 hours as needed for anxiety. Visit Charges Inpatient E&M: 13175 [facility] Hosp L3
--- NOTE | 2021-08-06 09:15 | CON.PCM_ITS ---
Assessment & Plan Assessment/Plan (1) Pseudoaneurysm following procedure: PLAN: I have discussed this patient with Dr. Damico. Dr. Damico will plan to perform a thrombin injection of the right groin. Procedure details, risks and benefits have been explained to the patient. Patient has had the opportunity to ask and have questions answered. Patient verbally understands and agrees with the plan. She has been holding her Eliquis since yesterday. Patient is aware she will be having a repeat imaging of the area today and tomorrow with potential of repeat procedure in the future. Patient expresses her concern of being off of her blood thinner due to the last time she was taken of her blood thinner she had a stroke. Reassurance was given to the patient. Thank you for allowing us to participate in this patient's care. 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 Patient was recently hospitalized with potentially a diverticular bleed. Dr. Polo evaluated this patient and had recommended the patient hold her Xarelto for 2 weeks due to her GI bleed. Patient unfortunately did not make the full 2 weeks prior to having stroke symptoms and being life-flighted to [place]. Patient states she was given TPA and at [facility] had a thrombectomy performed via right groin access. Patient was then noted to develop a pseudoaneurysm from her thrombectomy site and hemorrhaged into the surrounding tissues. She was was given 1 unit of PRBC. A CTA of the right groin showed no active extravasation at the pseudoaneurysm site. A 2 cm pseudoaneurysm of the distal anterior right common femoral artery with surrounding hematoma. Patient was to follow-up with vascular surgery as an outpatient. Per patient, she has not followed up with anyone in regards to this issue. She was admitted to the rehab unit on 07/24/21. Patient was restarted on Eliquis at [facility]. Patient continued to note pain and swelling at the right groin site. A venous duplex was obtained on 08/05/21 demonstrating an increase in size of the pseudoaneurysm at 3.86 x 2.6 cm right groin. [facility] Medical History (Updated 08/06/21 @ 09:[address] Melissa Patel DO) Adrenal adenoma Atrial fibrillation Chronic anticoagulation Diverticular disease BELLE (dyspnea on exertion) GERD (gastroesophageal reflux disease) GI bleed Hyperlipidemia Hypertension Morbid obesity with BMI of 40.0-44.9, adult RAVEN (obstructive sleep apnea) Osteoarthritis Pulmonary HTN Home Medications ascorbic acid (vitamin C) 500 mg PO DAILY 07/09/21 [History Last Taken 07/09/21] cholecalciferol (vitamin D3) 125 mcg PO DAILY 07/09/21 [History Last Taken 07/09/21] cranberry 400 mg PO DAILY 07/09/21 [History Last Taken 07/09/21] multivitamin 1 tab PO DAILY 07/09/21 [History Last Taken 07/09/21] pantoprazole 40 mg PO DAILY 07/09/21 [History Last Taken 07/09/21] aspirin 81 mg PO DAILY 07/24/21 [History Last Taken Unknown] atorvastatin [Lipitor] 80 mg PO QHS 07/24/21 [History Last Taken Unknown] metoprolol tartrate 75 mg PO Q12H 07/24/21 [History Last Taken Unknown] Allergy/AdvReac Type Severity Reaction Status Date / Time No Known Allergies Allergy Verified 07/18/21 03:01 Family History Father Irregular heart rhythm Mother Alzheimer's dementia Surgical History (Updated 07/28/21 @ 08:[address] Melissa Patel DO) Aortic valve replaced H/O section H/O total knee replacement Social History household members: spouse Smoking Status: Never smoker alcohol intake: never substance use type: does not use ROS Constitutional Constitutional: Reports fatigue and weakness Eyes Eyes: Reports systems reviewed and no addt'l complaints, except as documented ENT HEENT: Reports systems reviewed and no addt'l complaints, except as documented Cardiovascular Cardiovascular: Reports palpitations Respiratory/Chest Respiratory/Chest: Reports shortness of breath with exertion Gastrointestinal Gastrointestinal: Reports systems reviewed and no addt'l complaints, except as documented Genitourinary Genitourinary: Reports urinary incontinence Musculoskeletal Musculoskeletal: Reports systems reviewed and no addt'l complaints, except as documented Integumentary Integumentary: Reports systems reviewed and no addt'l complaints, except as documented Neurologic Neurologic: Reports weakness Psychiatric Psychiatric: Reports systems reviewed and no addt'l complaints, except as documented Endocrine Endocrinology: Reports systems reviewed and no addt'l complaints, except as documented Hematologic/Lymphatic Hematologic/Lymphatic: Reports easy bleeding and easy bruising Allergic/Immunologic Allergic/Immunologic: Reports systems reviewed and no addt'l complaints, except as documented Physical Exam Const alert, oriented x3 and no apparent distress HEENT normocephalic and head/scalp atraumatic Eyes PERRL and EOMs intact bilaterally Neck full ROM Lymph Lymphatic: no lymphadenopathy noted Resp normal respiratory effort and normal air movement Cardio regular rate and regular rhythm GI normal to inspection, nondistended, normoactive bowel sounds Inspection: central obesity Back/Spine no CVA tenderness Extremity Extremity Narrative: Right groin and medial thigh with moderate amount of ecchymosis noted, resolving. Pain with palpation of the right groin. Puncture site with hematoma noted. Skin no rashes or lesions noted Neuro oriented x3 and no sensory deficits noted Psych mental status grossly normal, thought process normal, cooperative, affect normal and speech normal Lab / Micro Data Result Diagrams: 08/06/21 05:43 07/25/21 05:59 Labs: Laboratory Results - last 24 hr 08/06/21 05:43: WBC 6.5, RBC 3.12 L, Hgb 9.3 L, Hct 31.2 L, MCV 100.0 H, MCH 29.8, MCHC 29.8 L, RDW Std Deviation 58.5 H, RDW Coeff of Madeleine 16.0 H, Plt Count 276, MPV 9.0 Radiology Impression Venous Doppler Study 08/05/21 13:45 Interpretation Summary 3.86 x 2.6 cm right groin pseudoaneurysm seemingly communicating with distal right common femoral artery. Neck 0.31cm Previous image CTA 07/28/21 suggested 2cm Technically difficult study secondary to body habitus Right lower extremity veins fill with color but demonstrate pulsitile flow. No evidence for acute deep venous thrombosis Ordering Physician: Melissa Patel Referring Physician: JUANJO CORDON Performed By: Lianet Benitez, RDCS, RVT Procedure Criteria Type of Procedure Procedure Type: Elective Elective Risks - COVID COVID Risk Discussion: The surgeon/proceduralist and patient have discussed in detail the risk of exposure to and/or potential harm posed by the COVID-19 virus with having a surgery/procedure at this time versus the risk of delaying the surgery/procedure. It is not possible to know either the risk of delaying the surgery or procedure or chance of getting an infection with perfect accuracy, but a joint decision was made between the patient and the surgeon/proceduralist to proceed at this time with the scheduled surgery/procedure as indicated on the consent form. Charges/Coding Visit Charges Office Visits / Consults: 40282 IP Consult L2 (check inpatient versus outpatient charge)
--- NOTE | 2021-08-06 10:08 | ADUL_ITS ---
Reason For Study: Pseudoaneurysm Right Velocities Pseudoaneurysm noted coming off the right distal BAG SEWER. Measures 2.77 x 3.78 cm, with a neck of 0.36 cm. Bilateral flow noted in the neck. BAG SEWER, 200.8 cm/sec. CFV appears patent with pulsatile venous flow noted. Procedure Exam performed in department. VL/US Art Duplex Unilat Lower Ext Interpretation Summary Right groin pseudoaneurysm measuring 2.77 x 3.78 cm with a 0.36 cm neck Right common femoral artery with increased velocity at 200 cm/s Pulsatile venous flow noted in the right common femoral vein Ordering Physician: Carlota Szymanski Referring Physician: MD Jhoan Tucker Performed By: Audra Krishnan RVT
--- NOTE | 2021-08-06 10:12 | ADUL_ITS ---
Reason For Study: Pseudoaneurysm Right Velocities Pseudoaneurysm appears thrombosed s/p thrombin injection 08/06/2021. Measures 2.66 x 3.85 cm. DP and GAS PUMPER pulses at ankle are triphasic after thrombin injection. Procedure Exam performed in department. /US Art Duplex Unilat Lower Ext Interpretation Summary Seemingly thrombosed right groin pseudoaneurysm status post thrombin injection. Current measurement 2.66 x 3.85 cm diameter Right DP and PT pulses demonstrated to be triphasic waveforms status post injec tion of pseudoaneurysm Ordering Physician: Carlota Szymanski Referring Physician: MD Jhoan Tucker Performed By: Audra Krishnan RVT
[2021-08-06 11:42] LABS: Anion Gap 5 (5-15); BUN 16 mg/dL (7-18); BUN/Creat Ratio 20.3 RATIO (10-20); Calcium,Total 8.5 mg/dL (8.5-10.1); Chloride 108 mmol/L (98-107); Creatinine, Serum 0.79 mg/dL (0.55-1.02); EST Glomerular Filtration Rate 74 mL/min (>60); Est Glom Filt Rate - Afr Amer 90 mL/min (>60); Estimated Creatinine Clearance 70.56 ml/min; Glucose 86 mg/dL (74-106); Potassium 3.9 mmol/L (3.5-5.1); Sodium Level 137 mmol/L (136-145)
[2021-08-06 12:10] VITALS: BMI 43.5
--- NOTE | 2021-08-06 12:51 | OP.PCM_ITS ---
Problems Associated Problem List Diagnoses (1) Pseudoaneurysm following procedure: Report of Operation Date of Procedure: 08/06/21 Pre-Operative Diagnosis: Large symptomatic 4 cm pseudoaneurysm right groin with anticoagulated patient Post-Operative Diagnosis: Same Surgery/Procedure Performed:: Ultrasound-guided thrombin injection large right groin pseudoaneurysm Description of Surgical Findings:: Timeout and informed consent was obtained. The patient was taken to the [facility] recovery area. The right groin was sterilely prepped and draped with Betadine. Ultrasound was performed identifying the sizable right groin pseudoaneurysm. Under ultrasound guidance 1 cc of 1% lidocaine was instilled in the skin. Then utilizing a 25-gauge needle and ultrasound guidance I was able to gain access to the part of the pseudoaneurysm furthest from the neck. I slowly injected thrombin 5000 unit vial. It became apparent that the blood was indeed clotting but due to the size of the aneurysm there was significant volume to fail. I completed 1 cc of injection. We waited several minutes. There remained at least half if not more of the pseudoaneurysm so I repeated the procedure and a second cc was carefully injected under ultrasound guidance. At this point there was a very small one quarter remaining. I again allowed several minutes to go by then I was able to under ultrasound guidance advance 22-gauge needle more directly into the remaining pocket trying to stay away from the neck itself and I was able to inject 0.2 cc and get complete resolution. The patient tolerated the procedure well. There was no apparent complication. Doppler inspection of her right foot DP and PT vessels had been performed preintervention and were repeated post intervention. They remained unchanged. The patient was asymptomatic throughout the entire procedure. She will remain at bedrest now for 2 hours Plan repeat pseudoaneurysm duplex exam tomorrow Minh Damico M.D., F.A.C.S. Surgeon: Minh Damico Type of Anesthesia: Local
--- NOTE | 2021-08-06 14:49 | PCM.PN.BLA ---
Assessment & Plan Assessment/Plan (1) Pseudoaneurysm following procedure: PLAN: Plan to obtain repeat arterial duplex imaging tomorrow. Depending on results, patient may need repeat thrombin injection versus observation. Please hold anticoagulation until after duplex imaging and results are complete.
[2021-08-06 19:30] VITALS: BP 130/77; PULSE 80; RESP 18; TEMP 36.1; O2SAT 93; BMI 43.5
[2021-08-06 20:01] VITALS: BP 130/77; PULSE 80
[2021-08-06] MEDS: Gabapentin 100 MG Capsule 200 MG PO (20:01)
[2021-08-06] MEDS: Atorvastatin Calcium 80 MG Tablet PO (20:02)
[2021-08-06] MEDS: Acetaminophen 325 MG Tablet 650 MG PO (20:07)
[2021-08-07] MEDS: traMADol 50 MG Tablet PO ×4 (00:46→20:39)
--- NOTE | 2021-08-07 00:49 | NURSING ---
Patient c/o pain in left leg, mainly when she gets up and stands on it. Requested some pain medication. PRN ultram administered as ordered. Will continue to monitor.
[2021-08-07] MEDS: Acetaminophen 325 MG Tablet 650 MG PO ×2 (06:32→18:04)
[2021-08-07 07:36] VITALS: BP 105/69; PULSE 78; RESP 18; TEMP 36.5; O2SAT 92
--- NOTE | 2021-08-07 09:00 | ADUL_ITS ---
Reason For Study: Pseudoaneurysm right groin Right Velocities Pseudoaneurysm appears thrombosed s/p thrombin injection 08/06/2021. Measures 2.76 x 3.80 cm. Unable to visualize the neck. TURPENTINE DISTILLER, 132.6 cm/sec. DPA, 103.3 cm/sec. MOVING CONSULTANT ankle, 68.3 cm/sec. CFV appears patent with pulsatile flow noted. Procedure Exam performed portable in patient room. Prelim to Joyce. VL/US Art Duplex Unilat Lower Ext Interpretation Summary Thrombosed right groin 2.76 x 3.80 cm pseudoaneurysm Normal arterial flow is noted within the right common femoral artery. Normal arterial flow is noted of the the right dorsalis pedis artery and the ri ght posterior tibial artery at the ankle. The right common femoral vein is patent though demonstrates pulsatile flow Ordering Physician: Minh Damico Referring Physician: MD Jhoan Tucker Performed By: Audra Krishnan RVT
[2021-08-07] MEDS: Gabapentin 100 MG Capsule PO ×2 (09:03→18:00)
[2021-08-07] MEDS: Pantoprazole Sodium 40 MG Tablet PO (09:03)
[2021-08-07] MEDS: Cholecalciferol (VIT D3) 25 MCG TABLET (1,000 UNITS) 125 MCG PO (09:04)
[2021-08-07 09:15] VITALS: BP 119/68; PULSE 82
[2021-08-07] MEDS: Metoprolol Tartrate 25 MG Tablet 75 MG PO ×2 (09:15→20:29)
[2021-08-07 09:22] VITALS: PULSE 81
[2021-08-07 10:10] LABS: Hematocrit 31.2 % (37-47); Hemoglobin 9.5 g/dL (12.0-15.0)
--- NOTE | 2021-08-07 11:31 | PCM.PN.BLA ---
Progress Note The US today of the R groin shows the pseudoaneurysm to be thrombosed. Dr. Damico would like a repeat US in 1 week. Would like to restart the Eliquis in the AM and will discuss with Dr. Damico. Afebrile VSS Maintaining appropriate oxygen saturation on RA Oral intake is good Discussed with nursing - no problems that need addressed Reviewed the PT/OT notes Medication list reviewed. Pain in the R groin is adequately controlled. she has been taking the Tramadol usually 3 times a day and is also on Gabapentin. No hematochezia. No CP and no SOB at rest. No pain in the R distal leg. Physical Exam Const alert, oriented x3 and no apparent distress Resp clear to auscultation bilaterally Cardio regular rate, regular rhythm and no gallops GI normal to inspection, nondistended, normoactive bowel sounds, soft to palpation and non-tender Extremity no calf tenderness Extremity Narrative: She has edema of the LE's and they are wrapped with JOE wraps. More likely than not due to venous insufficiency and pulmonary HTN Skin General Skin Exam: no breakdown and other intertrigo beneath the pannus controlled with Nystatin powder Rashes: no rashes Psych cooperative and affect normal Assessment & Plan Assessment/Plan (1) Radicular pain of right lower extremity: (2) Physical debility: (3) Anemia due to acute blood loss: (4) Chronic anticoagulation: (5) Pseudoaneurysm following procedure: PLAN: 1. The thrombin injection for enlarging pseudoaneurysm was successful. She will need a follow up venous US in [address] Damico has ordered this. 2. HGB is stable 3. Radicular pain is adequately controlled 4. Sleep study arranged for Thursday night and she will DC home on Thursday in the AM 5. OK to resume exercise Visit Charges Inpatient E&M: 71776 Subs Hosp L2
[2021-08-07] MEDS: Ferrous Sulfate 325 MG Tablet PO (12:09)
[2021-08-07] MEDS: Ascorbic Acid 500 MG Tablet 1000 MG PO (12:09)
[2021-08-07 15:25] VITALS: BMI 43.5
--- NOTE | 2021-08-07 15:49 | PCM.PN.BLA ---
Assessment & Plan Assessment/Plan (1) Pseudoaneurysm following procedure: PLAN: Discussed arterial duplex results with Dr. Damico. He is very pleased with the results. Patient may return on her blood thinners starting today. Repeat arterial duplex in 1 week from today. Order has been placed. Results from duplex today: Interpretation Summary Thrombosed right groin 2.76 x 3.80 cm pseudoaneurysm Normal arterial flow is noted within the right common femoral artery. Normal arterial flow is noted of the the right dorsalis pedis artery and the right posterior tibial artery at the ankle. The right common femoral vein is patent though demonstrates pulsatile flow
[2021-08-07 19:41] VITALS: BP 126/81; PULSE 81; RESP 17; TEMP 36.4; O2SAT 97
[2021-08-07] MEDS: Gabapentin 100 MG Capsule 200 MG PO (20:28)
[2021-08-07 20:29] VITALS: BP 126/81; PULSE 81
[2021-08-07] MEDS: Atorvastatin Calcium 80 MG Tablet PO (20:29)
[2021-08-07] MEDS: Nystatin Powder 15gm Bottle 1 APPLIC TOPICAL (20:40)
[2021-08-08 02:56] VITALS: BMI 43.5
--- NOTE | 2021-08-08 03:19 | NURSING ---
REVIEWED AND AGREE WITH CHANNEL CEMENTER OUTSOLE MACHINE ASSESSMENT.
[2021-08-08] MEDS: traMADol 50 MG Tablet PO ×3 (04:53→18:46)
[2021-08-08] MEDS: Nystatin Powder 15gm Bottle 1 APPLIC TOPICAL ×2 (04:56→21:08)
[2021-08-08 07:53] VITALS: BP 112/66; PULSE 78; RESP 18; TEMP 36.8; O2SAT 99
[2021-08-08 08:20] VITALS: PULSE 78
[2021-08-08] MEDS: Metoprolol Tartrate 25 MG Tablet 75 MG PO ×2 (08:20→21:06)
[2021-08-08] MEDS: Cholecalciferol (VIT D3) 25 MCG TABLET (1,000 UNITS) 125 MCG PO (08:20)
[2021-08-08] MEDS: Pantoprazole Sodium 40 MG Tablet PO ×2 (08:20→08:21)
[2021-08-08 08:47] VITALS: PULSE 85; RESP 18; O2SAT 93
[2021-08-08] MEDS: Gabapentin 100 MG Capsule PO ×2 (09:08→16:09)
[2021-08-08] MEDS: Acetaminophen 325 MG Tablet 650 MG PO (10:01)
[2021-08-08] MEDS: Ferrous Sulfate 325 MG Tablet PO (11:43)
[2021-08-08] MEDS: Ascorbic Acid 500 MG Tablet 1000 MG PO (11:43)
--- NOTE | 2021-08-08 16:41 | CASEMGMT ---
Social Work Sleep Lab has scheduled pt's sleep study for 08/09. Spoke with IDT and pt to change DC date to 08/09 - all agreeable. O2 is already at pt's home. [facility] updated. Mariely Schreiber, COMMANDING OFFICER GARAGE RAILROAD DETECTIVE
[2021-08-08 19:23] VITALS: BP 120/66; PULSE 75; RESP 18; TEMP 36.6; O2SAT 95
[2021-08-08] MEDS: Gabapentin 100 MG Capsule 200 MG PO (20:43)
[2021-08-08 21:06] VITALS: BP 120/66; PULSE 75
[2021-08-08] MEDS: Atorvastatin Calcium 80 MG Tablet PO (21:06)
[2021-08-08] MEDS: APIXABAN 5 MG TABLET PO (21:07)
[2021-08-09 00:43] VITALS: BMI 43.5
[2021-08-09] MEDS: Nystatin Powder 15gm Bottle 1 APPLIC TOPICAL (05:50)
--- NOTE | 2021-08-09 07:15 | NURSING ---
REVIEWED AND AGREE WITH RETAIL ZONE SPECIALIST'S HANDOFF CHARTING AND FUNCTIONAL ASSESSMENT CHARTING.
[2021-08-09 07:40] VITALS: BP 128/68; PULSE 74; RESP 16; TEMP 36.5; O2SAT 92
[2021-08-09] MEDS: Cholecalciferol (VIT D3) 25 MCG TABLET (1,000 UNITS) 125 MCG PO (08:26)
[2021-08-09] MEDS: Gabapentin 100 MG Capsule PO ×2 (08:26→16:53)
[2021-08-09 08:27] VITALS: BP 128/68; PULSE 74
[2021-08-09] MEDS: APIXABAN 5 MG TABLET PO ×2 (08:27→19:43)
[2021-08-09] MEDS: traMADol 50 MG Tablet PO ×2 (08:27→19:48)
[2021-08-09] MEDS: Metoprolol Tartrate 25 MG Tablet 75 MG PO ×2 (08:27→19:42)
--- NOTE | 2021-08-09 08:37 | DCINST_ITS ---
Discharge Instructions Diet Discharge Diet: - (low salt and low fat. ) Activity Discharge Activity: May Not Drive, May Shower and - (Do the exercises given to you by the therapists at least once a day. ) May resume sexual activity in: No Restrictions Weight Bearing Status: Full weight bearing Keep extremity elevated above heart level: Legs Additional Activity Instructions:: There are no restrictions on your activity at this time. You can do your exercises daily. Dressing / Incision Call your doctor if your incision/area has: Increased Pain/ Swelling, Increased Redness and - (swelling at the puncture site in the R groin) Call your doctor if you observe: Fever of 101 or Higher, Shortness of breath, Fainting spells, Chest pain, Increased palpitations (irregular heartbeat), Uncontrolled pain and - (black tarry stool, bleeding from the gums, anus or nose, increased numbness or burning in the R thigh) Cleanse incision/area with: Soap & Water Additional Dressing/Incision Instructions:: No dressing needed. Follow Up Care Please Follow Up With: Severo Arzola Test Results: Test results from this visit will be discussed in further detail at your follow-up appointment, if applicable. 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 Attending Provider: Melissa Patel Primary Care Provider: Tucker Staples Consulting Providers: Minh Damico Instructions Patient Instructions: Understanding Oxygen Therapy, What Are Snoring and Sleep Apnea?, Stroke Prevent Live W Atrial Fib, ED Diverticulosis Additional Instructions / Restrictions: 1. The pseudoaneurysm was clotted with the thrombin injected by Dr. Damico. The ultrasound 1 day after the procedure showed the pseudoaneurysm was still clotted with no active bleeding. Eliquis was restarted. The aspirin is still on hold. Dr. Damico put in an order for you to come to the hospital next week to have a third ultrasound. If everything is good then you will not need to see Dr. Damico but, if there is any problem his office will call you. There is no restriction on your activity and I think you need to continue doing the exercises given to you by the therapists every day. Exercise is very important in preventing additional strokes. 2. You have Diverticulosis. I am given you some printed information on diverticulosis so that you can read it and understand that diverticulosis is not curable. To prevent another bleed you need to avoid getting constipated. When you have to strain to have a BM it increases the intraabdominal pressure and this can cause a tic to blow out and bleed. Things that are important to have regular soft BM's are drink plenty of water, eat food high in fiber or take stool softeners such as Metamucil, Miralax or senna and exercise. If you have not moved your bowels for 3 days take a laxative and then increase water intake and/or increase the stool softener. IF you have another GI bleed the Eliquis will need to be stopped and you will be at risk for another stroke so keeping the stool soft and having regular BM's is VERY IMPORTANT!. 3. Your BP is well controlled. You are not diabetic. You came to rehab NOT on a medication to control cholesterol. the paperwork we got from the other hospital says you have high cholesterol. I would ask Dr. Staples and also your orientation & mobility specialist whether you need to be on a cholesterol lowering medication. There are 2 kinds of cholesterol, HDL (good) and LDL (bad). Once you have had a stroke the recommendations are to keep the LDL less than 70. 4. Call your family doctor if any unusual bleeding such as bleeding from the gums, blood from the anus, blood in the urine, nose bleeds, large bruises or bleeding from the vagina if female. 5. Wear the oxygen anytime you are sleeping. The sleep lab has made you an appt to follow up with one of the lung doctors at the hospital. The lung doctor will discuss with you the results of the sleep study and make recommendations. I do not know how you got a diagnosis on your chart of RAVEN (sleep apnea) but, it is important to know if this is true because treatment is important. Untreated sleep apnea can make the pulmonary hypertension worse. 6. Your blood count is still a little low but, it is stable. Dr. Staples wi ll want to recheck the blood count in a few weeks to make sure your body is making new red blood cells to correct the anemia. 7. I suggest you talk with your orientation & mobility specialist about a Watchman Procedure. This is a procedure that helps to decrease the risk of a clot coming from the heart and causing a stroke. It is very possible you could have a gastrointestinal bleed again due to diverticulosis and the anticoagulant would be stooped at that time putting you at risk for another stroke. 8. It has been a pleasure getting to know you Xiomara and I wish you good health in the future. Stay active.......it helps to keep you healthy. If you or Mark have any questions after you leave rehab please do not hesitate to call me. Office: [phone]. . Discharge Orders/Prescriptions Prescriptions: New acetaminophen [Tylenol] 325 mg Tablet 650 mg PO Q6H PRN PRN (Reason: PAIN 1-10) Qty: 0 RF: 0 gabapentin 100 mg Capsule See Rx Instructions .ROUTE .COMPLEX Qty: 120 RF: 0 magnesium hydroxide 400 mg/5 mL Suspension 30 ml PO .PRN X 1 PRN (Reason: Constipation) Qty: 0 RF: 0 tramadol 50 mg Tablet 50 mg PO Q6H PRN PRN (Reason: pain 4-10/10) 7 Days Qty: 28 RF: 0 Eliquis 5 mg Tablet 5 mg PO BID Qty: 60 RF: 0 Continued pantoprazole 40 mg tablet,delayed release (DR/EC) 40 mg PO DAILY RF: 0 cranberry 400 mg Capsule 400 mg PO DAILY RF: 0 cholecalciferol (vitamin D3) 125 mcg (5,000 unit) capsule 125 mcg PO DAILY RF: 0 multivitamin Tablet 1 tab PO DAILY RF: 0 ascorbic acid (vitamin C) 500 mg Tablet 500 mg PO DAILY RF: 0 aspirin 81 mg Tablet,Chewable 81 mg PO DAILY RF: 0 atorvastatin [Lipitor] 80 mg Tablet 80 mg PO QHS Qty: 30 RF: 0 metoprolol tartrate 50 mg Tablet 75 mg PO Q12H Qty: 90 RF: 0 Referrals / Follow Up: Maurice Luciano MD [NON-STAFF] - Tucker Staples MD [Primary Care Provider] - Homar Smith MD [STAFF PHYSICIAN] - Disposition Disposition (needs filled in before D/C Order can be placed): Home, Self Care
--- NOTE | 2021-08-09 10:08 | DS.PCM_ITS ---
Providers Date of Admission: 07/24/21 Primary Care Physician: Dr. Tucker Staples MD Consultations 08/06/21 07:45 Consult: General Surgery Routine Consulting Provider: Minh Damico Reason for Consult: Pseudoaneurysm EMERGENT Consult: Yes MD Notified: Yes Date Notified: 08/06/21 Time Notified: 07:45 Method of Notification: Verbal Reason For Visit: STROKE Diagnosis Discharge Diagnosis (1) Physical debility: Status: Acute Code(s): R53.81 - Other malaise (2) Acute ischemic right MCA stroke: Status: Acute Code(s): I63.511 - Cerebral infarction due to unspecified occlusion or stenosis of right middle cerebral artery (3) History of thrombolytic therapy: Status: Inactive Code(s): Z92.89 - Personal history of other medical treatment (4) Pseudoaneurysm following procedure: Status: Acute Code(s): T81.718A - Complication of other artery following a procedure, not elsewhere classified, initial encounter; I72.9 - Aneurysm of unspecified site (5) Hematoma following procedure: Status: Acute (6) Radicular pain of right lower extremity: Status: Acute Code(s): M54.10 - Radiculopathy, site unspecified (7) Cystitis: Status: Acute Code(s): N30.90 - Cystitis, unspecified without hematuria (8) Atrial fibrillation: Status: Chronic Code(s): I48.91 - Unspecified atrial fibrillation (9) Chronic anticoagulation: Status: Acute Code(s): Z79.01 - longterm (current) use of anticoagulants (10) Diverticular disease: Status: Acute Code(s): K57.90 - Diverticulosis of intestine, part unspecified, without perforation or abscess without bleeding (11) GI bleed: Status: Acute Code(s): K92.2 - Gastrointestinal hemorrhage, unspecified (12) Anemia due to acute blood loss: Status: Acute Code(s): D62 - Acute posthemorrhagic anemia (13) Hypertension: Status: Chronic Code(s): I10 - Essential (primary) hypertension (14) Hyperlipidemia: Status: Chronic Code(s): E78.5 - Hyperlipidemia, unspecified (15) Sleep-disordered breathing: Status: Acute Code(s): G47.30 - Sleep apnea, unspecified (16) GERD (gastroesophageal reflux disease): Status: Chronic Code(s): K21.9 - Gastro-esophageal reflux disease without esophagitis Plan: Discharge home with [facility] Medications at Discharge Home Medications ascorbic acid (vitamin C) 500 mg PO DAILY 07/09/21 cholecalciferol (vitamin D3) 125 mcg PO DAILY 07/09/21 cranberry 400 mg PO DAILY 07/09/21 multivitamin 1 tab PO DAILY 07/09/21 pantoprazole 40 mg PO DAILY 07/09/21 aspirin 81 mg PO DAILY 07/24/21 acetaminophen [Tylenol] 650 mg PO Q6H PRN PRN #0 tab 08/09/21 apixaban [Eliquis] 5 mg PO BID #60 tab 08/09/21 atorvastatin [Lipitor] 80 mg PO QHS #30 tab 08/09/21 gabapentin See Rx Instructions .ROUTE .COMPLEX #120 cap 08/09/21 magnesium hydroxide 30 ml PO .PRN X 1 PRN #0 ml 08/09/21 metoprolol tartrate 75 mg PO Q12H #90 tab 08/09/21 tramadol 50 mg PO Q6H PRN PRN 7 Days #28 tab 08/09/21 Hospital Course Operations - (Thrombectomy on 07/24/21 at [facility] for R MCA clot. ) Procedures - (thrombin injection on 08/06/[address] Damico for enlarging pseudoaneurysm R groin. ) Summary of Care Provided Minutes Spent on Discharge: 55 Hospital Course: JAGDEEP WHYTE, is a 81 YO F with a PMH of hypertension, hyperlipidemia, atrial fibrillation, chronic anticoagulation (on Xarelto), recent history of a GI bleed (diverticular), GERD, RAVEN (she denies ever having a sleep study but has a high STOP BANG score), pulmonary hypertension, morbid obesity, aortic valve replacement (approximately 2010 - bioprosthetic pig valve) and osteoarthritis who presented to the ED at [facility] on 07/18/21 with a history of having gone to bed at 11:30 on 07/17/2021 and when her woke up a few hours later she had slurred speech, facial droop and Left side weakness. 911 was called and the EMT's arrived at 02:33. They arrived in the ED at 02:54. She had been discharged from [facility] on 07/11/21 after being admitted with a lower GI bleed secondary to diverticular disease. During that admission Xarelto was discontinued due to bleeding. Dr. Polo recommended holding anticoagulation fo r at least 2 weeks post bleed. The hemoglobin at discharge from the hospital was 10. Hemoglobin on 07/18/2021 was 10.5. The NIHSS score at presentation to the emergency room was 18. Radiology was consistent with a thrombus in the right middle cerebral artery. Consultation was obtained via teleneurology and TPA was recommended. TPA was given in the emergency room and the patient was transported to [facility] for possible thrombectomy. CTP at [facility] showed a large area of mismatched perfusion abnormality consistent with ischemic penumbra involving the majority of the right MCA territory with only a relatively small area of matched perfusion deficit consistent with core infarct involving the right basal ganglia. She was taken to the OR for thrombectomy and TICI 2C revascularization was achieved. MRI showed the infarct in the basal ganglia along with 2 other foci in the right cerebellum and right occipital lobes. She had a transthoracic echocardiogram that showed an ejection fraction of 65% with abnormal septal wall motion, an enlarged right ventricle, right atrium and left atrium. Bubble study was negative for PFO. LDL was 108 and the hemoglobin A1c was 5.2. Patient's ho spital course was complicated by a pseudoaneurysm from her thrombectomy site in the right groin and hemorrhage into the surrounding tissues. Hemoglobin down trended to the low sevens and she was transfused with 1 unit of packed red blood cells. She was seen by Dr. Bran from vascular surgery and no intervention was recommended. She was to start Eliquis the day after presentation to rehab and we were to check the groin daily and an H/H daily for 1 week. On the day of discharge her hemoglobin was 8.8. She was to follow up with vascular surgery as an outpatient. A CTA of the right groin prior to DC from [facility] showed no active extravasation at the pseudoaneurysm site. She was transferred to [facility] acute rehab on 07/24/21 for 3 hours of therapy daily to restore function at or near her level prior to the CVA. Following transfer to rehab she started to c/o burning pain in the R ante rior and medial thigh. She also had electric shock type pain which was positional. A CTA of the groin was done on 07/28/21 and the pseudoaneyrysm measured 2 cm but, there was no active extravasation. She was started on Gabapentin for suspected Femoral nerve compression due to 6 cm hematoma and this controlled the pain. On 08/05/21 the R leg was more swollen and she was c/o increased R leg pain. A venous US of the R groin was ordered and the pseudoaneurysm had enlarged an measured 3.[address] Damico was consulted and Jagdeep was taken to the vascular lab on 08/06/21 where she had 3 thrombin injections before complete coagulation occurred. Follow up US the following day showed a thrombosed right groin 2.76 x 3.8 cm pseudoaneurysm. Normal arterial flow was noted within the right common femoral artery, the right dorsalis pedis artery and the right posterior tibial artery at the ankle. There was no evidence of deep vein thrombosis. Eliquis was restarted and she will restart ASA 81 mg on 08/10/21. She is scheduled for a follow up OP venous US on 08/12/21. Dr. Damico will review the US and call the patient if he needs to see her. Also during her stay in rehab she had a UTI due to Citrobacter youngae and she was treated with 5 days of Levaquin 250 mg daily. HGB has been stable and a hemoccult stool was negative. Hemoglobin 2 days prior to discharge was 9.5. the remainder of her stay in rehab was unremarkable and she did well with therapy. She was quite deconditioned at presentation and I do think she is very active at home. Prior to discharge Jagdeep was able to ambulate 500 feet with a wheeled walker on various surfaces independently. She was still requiring minimal assistance to get her legs into and out of the bed and her felt he would be able to do this and if he can't they have a lift chair she can sleep in. She was able to a send/descend 3-5 steps with 2 handrails at contact- guard assist in order to gain entry into her house. She is independent with eating and grooming. She requires moderate assistance for bathing primarily for the lower half of the body. She is able to dress her upper and lower body independently. She did not require assistance with toilet transfer or tub/shower transfer but, supervision was recommended for the first week. Jagdeep was discharged on 08/09/21 and will go to the sleep lab for an overnight study. The sleep lab made an appt for her to follow up with pulmonology to review the results of the test with her. Home oxygen was arranged by the and she will wear the oxygen anytime she is sleeping. She will follow up with Dr. Staples in 5-10 days and she will also follow up with Dr. Luciano from cardiology. She does not want to return to [place] and an appt was made for her to follow up with Dr. Smith from neurology at [facility]. She has diverticulosis and is at risk for GI bleeds in the future, coleen since she needs chronic anticoagulation. She may need to be off anticoagulation if this happens and since she had a stroke after being off Xarelto for 1 week she is fearful of having another stroke. I recommended she talk to Dr. Luciano to see if she may benefit from a Watchman procedure to decrease the risk. She was discharged on Tramadol and Gabapentin for pain control. The pain is primarily in the R medial thigh. This note was generated with [employer] dictation software. It may contain incorrect words, spelling, and punctuation that were not noted in checking the note before signing. Physical Exam Const alert, oriented x3, no apparent distress and well nourished Constitutional Narrative: Looks comfortable sitting in the recliner at the bedside. General Appearance: cooperative HEENT head/scalp atraumatic and moist oral mucous membranes Eyes PERRL, EOMs intact bilaterally, conjunctivae normal and no scleral icterus Eyes Narrative: No visual field cuts. No gaze preference. Neck supple and no carotid bruits General: trachea midline Chest Chest: symmetrical chest wall rise Resp normal respiratory effort and clear to auscultation bilaterally Resp Narrative: Diminished breath sounds-more likely than not secondary to body habitus. No wheezes, rhonchi or rales. Not tachypneic and she has no conversational dyspnea and is able to complete sentences with no shortness of breath. Effort and Inspection: able to speak in complete sentences Cardio regular rate, regular rhythm, S1 normal heart sound, S2 normal heart sound, no rub, no gallops and no clicks Cardio Narrative: She has periodic AF but, it is rate controlled and she is asymptomatic. GI normal to inspection, nondistended, normoactive bowel sounds, soft to palpation, non-tender and no masses GI Narrative: Stool is brown. Hemoccult was negative. Having regular BM's and not having to strain. Has been refusing the senna. Bladder / Kidney Exam: No CVA tenderness Groin / Perineum Exam: ecchymosis; Negative for erythema or inguinal lymphadenopathy Extremity no calf tenderness and no pedal edema Extremity Narrative: BL LE edema - more likely than not due to venous insufficiency. Feet are warm and she has intact sensation. She has a large hematoma in the R groin and it is non-tender to palpation. the pain she is having is radicular. It hurts to ambulate if she takes big steps but, it decreases with smaller steps. General Extremity: Negative for calf tenderness or cyanosis Skin General Skin Exam: no breakdown Rashes: no rashes Neuro CN's II-XII intact bilaterally Neuro Narrative: The Left leg is still weak although it is better than at admission and she is able to ambulate with a FWW 500'. she has difficulty lifting her leg to get in and out of the bed yet. Modified Ranking at admission was 4 and the current MRS is 2. Psych mental status grossly normal, thought process normal, cooperative and affect normal Weight / BMI Weight Weight: 222 lb 7.143 oz Body Mass Index (BMI) 43.5 ABG / Lab / Microbiology Data Result Diagrams: 08/07/21 10:02 08/06/21 05:43 Microbiology: Microbiology 07/29/21 21:00 Urine, Catheterized Urine Culture - Final Citrobacter youngae 07/26/21 08:45 Stool Stool Occult Blood (BEKAH) - Final D/C Instructions Discharge Diet: - (low salt and low fat. ) May resume sexual activity in: No Restrictions Weight Bearing Status: Full weight bearing Keep extremity elevated above heart level: Legs Additional Activity Instructions: There are no restrictions on your activity at this time. You can do your exercises daily. Call your doctor if your incision/area has: Increased Pain/ Swelling, Increased Redness and - (swelling at the puncture site in the R groin) Call your doctor if you observe: Fever of 101 or Higher, Shortness of breath, Fainting spells, Chest pain, Increased palpitations (irregular heartbeat), Uncontrolled pain and - (black tarry stool, bleeding from the gums, anus or nose, increased numbness or burning in the R thigh) Cleanse incision/area with: Soap & Water Additional Dressing/Incision Instructions: No dressing needed. Pending Tests Upon Discharge: none Please Follow Up With: Severo Arzola Meaningful Use Info Meaningful Use Diagnoses (Choose all that apply): Ischemic CVA CVA Therapy Assessed for PT,OT and/or ST?: Yes Ischemic Stroke Antithrombotic order at d/c?: Yes Dx of Atrial fib/flutter?: Yes Anticoagulant at discharge?: Yes Statins at discharge?: Yes Primary Dx Acute Ischemic CVA?: Yes IV tPA ordered during stay?: No Reason IV t-PA not ordered: Treatment not Indicated (She had TPA prior to transfer to [facility] for thrombectomy and we are a rehab unit) Discharge Plan Admission Admit Date/Time: 07/24/21 18:29 Primary Reason for Your Visit: Debility due to embolic CVA, thrombectomy and pseudoaneurysm. Attending Provider: Melissa Patel Primary Care Provider: Tucker Staples Consulting Providers: Minh Damico Instructions Patient Instructions: Understanding Oxygen Therapy, What Are Snoring and Sleep Apnea?, Stroke Prevent Live W Atrial Fib, ED Diverticulosis Additional Instructions / Restrictions: 1. The pseudoaneurysm was clotted with the thrombin injected by Dr. Damico. The ultrasound 1 day after the procedure showed the pseudoaneurysm was still clotted with no active bleeding. Eliquis was restarted. The aspirin is still on hold. Dr. Damico put in an order for you to come to the hospital next week to have a third ultrasound. If everything is good then you will not need to see Dr. Damico but, if there is any problem his office will call you. There is no restriction on your activity and I think you need to continue doing the exercises given to you by the therapists every day. Exercise is very important in preventing additional strokes. 2. You have Diverticulosis. I am given you some printed information on diverticulosis so that you can read it and understand that diverticulosis is not curable. To prevent another bleed you need to avoid getting constipated. When you have to strain to have a BM it increases the intraabdominal pressure and this can cause a tic to blow out and bleed. Things that are important to have regular soft BM's are drink plenty of water, eat food high in fiber or take stool softeners such as Metamucil, Miralax or senna and exercise. If you have not moved your bowels for 3 days take a laxative and then increase water intake and/or increase the stool softener. IF you have another GI bleed the Eliquis will need to be stopped and you will be at risk for another stroke so keeping the stool soft and having regular BM's is VERY IMPORTANT!. 3. Your BP is well controlled. You are not diabetic. There are 2 kinds of cholesterol, HDL (good) and LDL (bad). Once you have had a stroke the r ecommendations are to keep the LDL less than 70. your LDL was 87 at [facility] so try and lose some weight and decrease the fat in your diet. 4. Call your family doctor if any unusual bleeding such as bleeding from the gums, blood from the anus, blood in the urine, nose bleeds, large bruises or bleeding from the vagina if female. 5. Wear the oxygen anytime you are sleeping. The sleep lab has made you an appt to follow up with one of the lung doctors at the hospital. The lung doctor will discuss with you the results of the sleep study and make recommendations. I do not know how you got a diagnosis on your chart of RAVEN (sleep apnea) but, it is important to know if this is true because treatment is important. Untreated sleep apnea can make the pulmonary hypertension worse. 6. Your blood count is still a little low but, it is stable. Dr. Staples will want to recheck the blood count in a few weeks to make sure your body is making new red blood cells to correct the anemia. 7. I suggest you talk with your quarter seamer about a Watchman Procedure. This is a procedure that helps to decrease the risk of a clot coming from the heart and causing a stroke. It is very possible you could have a gastrointestinal bleed again due to diverticulosis and the anticoagulant would be stooped at that time putting you at risk for another stroke. 8. It has been a pleasure getting to know you Jagdeep and I wish you good health in the future. Stay active.......it helps to keep you healthy. If you or Mark have any questions after you leave rehab please do not hesitate to call me. Office: [phone]. . Discharge Orders/Prescriptions Prescriptions: New acetaminophen [Tylenol] 325 mg Tablet 650 mg PO Q6H PRN PRN (Reason: PAIN 1-10) Qty: 0 RF: 0 gabapentin 100 mg Capsule See Rx Instructions .ROUTE .COMPLEX Qty: 120 RF: 0 magnesium hydroxide 400 mg/5 mL Suspension 30 ml PO .PRN X 1 PRN (Reason: Constipation) Qty: 0 RF: 0 tramadol 50 mg Tablet 50 mg PO Q6H PRN PRN (Reason: pain 4-10/10) 7 Days Qty: 28 RF: 0 Eliquis 5 mg Tablet 5 mg PO BID Qty: 60 RF: 0 Continued pantoprazole 40 mg tablet,delayed release (DR/EC) 40 mg PO DAILY RF: 0 cranberry 400 mg Capsule 400 mg PO DAILY RF: 0 cholecalciferol (vitamin D3) 125 mcg (5,000 unit) capsule 125 mcg PO DAILY RF: 0 multivitamin Tablet 1 tab PO DAILY RF: 0 ascorbic acid (vitamin C) 500 mg Tablet 500 mg PO DAILY RF: 0 aspirin 81 mg Tablet,Chewable 81 mg PO DAILY RF: 0 atorvastatin [Lipitor] 80 mg Tablet 80 mg PO QHS Qty: 30 RF: 0 metoprolol tartrate 50 mg Tablet 75 mg PO Q12H Qty: 90 RF: 0 Referrals / Follow Up: Maurice Luciano MD [NON-STAFF] - Tucker Staples MD [Primary Care Provider] - Homar Smith MD [STAFF PHYSICIAN] - Disposition Disposition (needs filled in before D/C Order can be placed): Home, Self Care Charges/Coding Visit Charges Inpatient E&M: 21123 Disch Hosp
[2021-08-09] MEDS: Ascorbic Acid 500 MG Tablet 1000 MG PO (12:24)
[2021-08-09] MEDS: Ferrous Sulfate 325 MG Tablet PO (12:24)
[2021-08-09 15:40] VITALS: BMI 43.5
[2021-08-09 19:42] VITALS: BP 150/85; PULSE 84
[2021-08-09] MEDS: Atorvastatin Calcium 80 MG Tablet PO (19:43)
[2021-08-09] MEDS: Gabapentin 100 MG Capsule 200 MG PO (19:43)
--- NOTE | 2021-08-09 19:58 | NURSING ---
pt discharged from unit at this time, and ambulated to appt to sleep lab. all hs medications given . pt medicated for leg pain with ultram.
[2021-08-09 20:00] VITALS: BP 150/85; PULSE 84; RESP 18; TEMP 36.9; O2SAT 94
== END 2021-08-09 20:00 | disposition home health service (06) | DRG 57 ==
PROVIDERS: Admitting Provider Internal Medicine; PCP Family Medicine; Visit Provider Internal Medicine
DX: I69.354 Hemiplegia and hemiparesis following cerebral infarction affecting left non-dominant side (principal); Z68.41 Body mass index [BMI] 40.0-44.9, adult; D62 Acute posthemorrhagic anemia; I69.392 Facial weakness following cerebral infarction; I69.328 Other speech and language deficits following cerebral infarction; I10 Essential (primary) hypertension; E78.5 Hyperlipidemia, unspecified; K21.9 Gastro-esophageal reflux disease without esophagitis; G47.33 Obstructive sleep apnea (adult) (pediatric); E66.01 Morbid (severe) obesity due to excess calories; I27.20 Pulmonary hypertension, unspecified; M19.90 Unspecified osteoarthritis, unspecified site; I72.8 Aneurysm of other specified arteries; N30.90 Cystitis, unspecified without hematuria; B96.89 Other specified bacterial agents as the cause of diseases classified elsewhere; K57.90 Diverticulosis of intestine, part unspecified, without perforation or abscess without bleeding; F41.9 Anxiety disorder, unspecified; I48.0 Paroxysmal atrial fibrillation; M54.10 Radiculopathy, site unspecified; Z95.3 Presence of xenogenic heart valve; Z79.899 Other long term (current) drug therapy; Z79.82 Long term (current) use of aspirin; Z79.01 Long term (current) use of anticoagulants
CPT/HCPCS: 36415; 72191; 80048; 80053; 81001; 82274; 83735; 84100; 85014; 85018; 85025; 85027; 86850; 86900; 86901; 86920; 86922; 87077; 87086; 87088; 87186; 92523; 92610; 93926; 93971; 94762; 97110; 97112; 97116; 97162; 97166; 97530; 97535; 97802; 99251; Q9967; A4216; G0463

== ENCOUNTER → 2021-08-09 21:35 | Outpatient (CLI) | payer MEDICARE, OTHER, SELFPAY | PROVIDERS: PCP Family Medicine; Visit Provider Internal Medicine | DX: G47.33 Obstructive sleep apnea (adult) (pediatric) (principal) | CPT/HCPCS: 95810 ==

== ENCOUNTER → 2021-09-02 13:00 | Outpatient (CLI) | payer MEDICARE, OTHER, SELFPAY ==
--- NOTE | 2021-09-02 13:02 | ADUL_ITS ---
Reason For Study: Right groin pseudoaneurysm Right Velocities Thrombosed pseudoaneurysm measures 1.95 x 2.79 x 3.24 cm. Unable to visualize the neck. VASCULAR NEUROLOGIST, 114.4 cm/sec. CFV appears patent with pulsatile flow noted. S/p thrombin injection 08/06/2021, No blood flow noted within. Prelim to Vilma SWAIN. VL/US Art Duplex Unilat Lower Ext Interpretation Summary Thrombosed right groin pseudoaneurysm 1.95 x 2.79 x 3.24cm improved from 3.8cm on 08/07/21. Normal right common femoral artery flow Patent right common femoral vein flow with pulsitility noted. Neck of the pseud o-aneurysm not identified. This is unchanged from previously Ordering Physician: Minh Damico Referring Physician: MD Jhoan Tucker Performed By: Audra Krishnan RVT
== END ==
PROVIDERS: PCP Family Medicine; Referring Provider Surgery; Visit Provider Surgery
DX: R10.31 Right lower quadrant pain (principal); I72.8 Aneurysm of other specified arteries
CPT/HCPCS: 93926

== ENCOUNTER 2021-10-29 11:00 | Outpatient (CLI) | payer MEDICARE, OTHER, SELFPAY | END 2021-10-29 23:59 | disposition short-term general hospital (02) | LOC: SL 14:41 | PROVIDERS: PCP Family Medicine; Visit Provider Nurse Practitioner Acute Care | DX: Z46.89 Encounter for fitting and adjustment of other specified devices (principal) ==

== ENCOUNTER 2021-12-11 13:03 | Outpatient (CLI) | payer MEDICARE, OTHER, SELFPAY ==
--- NOTE | 2021-12-11 13:05 | ADUL_ITS ---
Reason For Study: Pseudoaneurysm Right Velocities TIRE BUSTER, 0.82 x 0.80 cm, 135.2 cm/sec. FV prox, 0.60 x 0.61 cm, 84.7 cm/sec. CFV and FV prox are compressible with pulsatile venous flow noted. Thrombosed pseduaneurysm measures 0.45 x 1.41 x 1.85 cm. S/p thrombin injection 08/06/2021, No blood flow noted within. Compared to 09/02/2021. Procedure Prelim to Rubi SWAIN. Exam performed in department. VL/US Art Duplex Unilat Lower Ext Interpretation Summary Right common femoral artery normal at 0.82 x 0.8 cm in diameter Markedly diminished thrombosed right 6 pseudoaneurysm measuring now 1.41 x 0.45 cm with no vascular flow Right common femoral vein and femoral vein are compressible without evidence of thrombus although pulsatile venous flow was noted possibly consistent with proximal venous hypert ension. Clinical correlation would be appropriate. Ordering Physician: Minh Damico Referring Physician: MD Jhoan Tucker Performed By: Audra Krishnan RVT
--- NOTE | 2021-12-11 13:57 | VDLE_ITS ---
Reason For Study: Swelling RIGHT GSV is normal. CFV is compressible, spontaneous, phasic, competent and demonstrates normal augmentation. FV is compressible, spontaneous, phasic, competent and demonstrates normal augmentation. POP V is compressible, spontaneous, phasic, competent and demonstrates normal augmentation. T/P Trunk is compressible. PTV is compressible. RT PerV is compressible. Procedure This is a venous duplex using B-mode, color flow and spectral Doppler. Exam performed in department. A preliminary report was called and/or faxed to Rubi SWAIN. VL/Venous Duplex US, Unilateral Interpretation Summary There is no evidence of right lower extremity deep vein thrombosis. Right great saphenous vein appears patent and compressible segmentally. Ordering Physician: Minh Damico Referring Physician: MD Jhoan Tucker Performed By: Audra Krishnan RVT
== END 2021-12-11 23:59 | disposition home or self-care (01) ==
LOC: CVS 13:04
PROVIDERS: PCP Family Medicine; Referring Provider Surgery; Visit Provider Surgery
DX: R10.31 Right lower quadrant pain (principal); I72.4 Aneurysm of artery of lower extremity; M79.89 Other specified soft tissue disorders; T81.718A Complication of other artery following a procedure, not elsewhere classified, initial encounter
CPT/HCPCS: 93926; 93971

== ENCOUNTER 2024-05-10 14:25 | Emergency (ER) | payer MEDICARE, OTHER, SELFPAY ==
[2024-05-10 14:26] VITALS: BP 131/70; PULSE 70; RESP 18; TEMP 36.3; O2SAT 97
[2024-05-10 14:34] VITALS: BMI 41.8
--- NOTE | 2024-05-10 15:21 | EKG12_ITS ---
Test Reason : Blood Pressure : / mmHG Vent. Rate : 069 BPM Atrial Rate : 000 BPM P-R Int : 000 ms QRS Dur : 116 ms QT Int : 422 ms P-R-T Axes : 000 107 025 degrees QTc Int : 452 ms Atrial fibrillation INCOMPLETE Right bundle branch block Abnormal ECG Confirmed by Warren Garcia ([id number]), legal editor VERITO CASTREJON ([id number]) on 05/12/2024 9:24:20 AM Referred By: Confirmed By:Warren Garcia
--- NOTE | 2024-05-10 15:21 | CT_ITS ---
EXAM: CT ABDOMEN AND PELVIS WITH INTRAVENOUS CONTRAST CLINICAL INDICATION: diffuse abd pain TECHNIQUE: Helically acquired images were obtained of the abdomen and pelvis with intravenous contrast. This CT exam was performed using one or more of the following dose reduction techniques: automated exposure control, adjustment of the mA and/or kV according to patient size, and/or use of iterative reconstruction technique. CONTRAST: IV 100mL Isovue-370 RADIATION DOSE: CTDIvol = 22.43 mGy, DLP = 939.14 mGy-cm COMPARISON: 07/09/2021 FINDINGS: LOWER THORAX: There is moderate to marked cardiomegaly. Lung bases are clear. No significant pericardial effusion. ABDOMEN: LIVER: No significant acute abnormality. Tiny simple cyst. Homogeneous. No focal mass. GALLBLADDER AND BILE DUCTS: Cholecystectomy. No intra- or extrahepatic biliary ductal dilation. PANCREAS: Unremarkable. No focal cystic or solid mass. SPLEEN: Unremarkable. Normal size without focal cystic or solid mass. ADRENALS: Unremarkable. No nodules. KIDNEYS AND URETERS: No acute abnormality or significant change. Normal renal size and position. No hydronephrosis. No stones. STOMACH AND BOWEL: Evaluation of the GI tract is limited by absence of oral contrast. Cannot exclude stomach wall thickening. No dilated loops of bowel or evidence for obstruction. Cannot exclude segmental thickening of the [place] of the small or large bowel. Cannot exclude enteritis or colitis. Moderate diffuse fecal retention. Appendix within normal limits. PELVIS: APPENDIX: No evidence of acute appendicitis. BLADDER: Unremarkable. REPRODUCTIVE: Absent uterus. ABDOMEN and PELVIS: INTRAPERITONEAL SPACE: Unremarkable. No ascites or other fluid collection. No free air. BONES/JOINTS: Degenerative changes throughout the bones. No suspicious lytic or blastic abnormality. SOFT TISSUES: Unremarkable. No discrete abdominal or pelvic wall hernia. VASCULATURE: Scattered calcified plaque. Abdominal aorta is non-dilated. LYMPH NODES: Unremarkable. No enlarged lymph nodes. CT/Abdomen/Pelvis W IV Cont ONLY IMPRESSION: No definite acute or significant abnormality seen. Electronically Signed: Donis Siu MD at 16:49 EDT ,
[2024-05-10] MEDS: Dicyclomine 10 MG Capsule PO (15:29)
[2024-05-10] MEDS: Ondansetron 4 MG/2 ML Vial IV (15:29)
[2024-05-10] MEDS: 0.9% Normal Saline (1000mL) 1,000 ML 999 ML IV (15:29)
[2024-05-10 15:32] LABS: Mucous, Urine 0 SEEN /hpf (<or=2+)
[2024-05-10 15:33] LABS: Color, Urine Yellow (Yellow); Glucose, Dipstick Normal (Normal); Ketone-Dipstick Negative (Negative); Leukocyte Esterase-Dipstick Negative /ul (Negative); Nitrite-Dipstick Negative (Negative); Occult Blood-Urine 10 /ul (Negative); Protein-Dipstick Negative (Negative); Specific Gravity, Urine 1.015 (1.002-1.030); Urine Bilirubin Dipstick Negative (Negative); Urine Clarity Clear (Clear); Urine Urobilinogen Normal (Normal)
[2024-05-10 15:34] LABS: Absolute Lymphocyte Count 0.66 X10^3/uL (0.83-4.51); Absolute Neutrophil Count 7.7 X10^3/uL (2.0-7.7); Basophil# 0.06 X10^3/uL; Basophil% 0.6 % (0-1); Eosinophil# 0.08 X10^3/uL; Eosinophils% 0.9 % (0-5); Lymphocyte # 0.66 X10^3/ul (0.83-4.51); Lymphocyte % 7.1 % (19-41); Mean Corp Hgb Conc 31.6 g/dL (32-36); Mean Corpuscular Hgb 30.2 pg (27.0-32.0); Mean Corpuscular Volume 95.7 fL (81-99); Mean Platelet Vol. 9.1 fl (6.2-12.0); Monocyte# 0.68 X10^3/uL; Monocyte% 7.4 % (0-10); NRBC Flagged by Analyzer 0 % (0-5); Neutrophil # 7.72 X10^3/uL (2.7-7.7); Neutrophil % 83.6 % (47-70); Platelet Count 209 K/mm3 (150-450); RBC Distribution Width SD 49.1 fl (35.1-43.9); Red Blood Count 3.97 M/mm3 (4.2-5.4); White Blood Count 9.2 K/mm3 (4.4-11.0)
--- NOTE | 2024-05-10 15:39 | EX.ED.DYSGE1 ---
HPI History of Present Illness Chief Complaint: Abd Pain Narrative Narrative: Patient is a 84-year-old female with past medical history of pulmonary hypertension, hypertension, RAVEN, anxiety, atrial fibrillation on Eliquis who presented to the emergency department with a chief complaint of abdominal pain. Patient states this morning when she woke up she had a bowel movement and then after that she noted that she had spasming of her bowels. She states that this felt like bowel gas and things or not improving prompting her to come here for the valuation management. Patient did note that she has had her gallbladder out as well as her appendix and her uterus so she has had multiple abdominal surgeries she stated. Patient states that she did have some episodes of diarrhea earlier today as well and notes that her stools have been normal in color. 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 Anxiety Morbid obesity with BMI of 40.0-44.9, adult Diverticular disease GI bleed Acute ischemic right MCA stroke Osteoarthritis Pulmonary HTN Hyperlipidemia Adrenal adenoma Hypertension BELLE (dyspnea on exertion) RAVEN (obstructive sleep apnea) Chronic anticoagulation GERD (gastroesophageal reflux disease) Atrial fibrillation Home Medications ?Medication ?Instructions ?Recorded ?Last Taken ?Type ascorbic acid (vitamin C) 500 mg 500 mg PO DAILY SUPPLEMETN 07/09/21 07/09/21 History tablet cholecalciferol (vitamin D3) 125 125 mcg PO DAILY supplement 07/09/21 07/09/21 History mcg (5,000 unit) capsule cranberry 400 mg capsule 400 mg PO DAILY Check with primary 07/09/21 07/09/21 History doctor multivitamin 1 tab PO DAILY SUPPLEMENT 07/09/21 07/09/21 History pantoprazole 40 mg tablet,delayed 40 mg PO DAILY Check with primary 07/09/21 07/09/21 History release doctor aspirin 81 mg chewable tablet 81 mg PO DAILY Check with primary 07/24/21 Unknown History doctor acetaminophen 325 mg tablet 650 mg (2 x 325 mg) PO Q6H PRN PRN 08/09/21 Unknown Rx (Tylenol) PAIN 1-10 #0 tabs apixaban 5 mg tablet (Eliquis) 5 mg PO BID #60 tabs 08/09/21 Unknown Rx gabapentin 100 mg capsule See Rx Instructions .Route 08/09/21 Unknown Rx .COMPLEX #120 caps losartan 25 mg tablet tablet PO 09/06/21 Unknown History spironolactone 25 mg tablet 25 mg PO DAILY 09/06/21 Unknown History diltiazem HCl 120 mg 120 mg PO DAILY 03/11/22 Unknown History capsule,extended release 24 hr furosemide 20 mg tablet 20 mg PO BID 03/11/22 Unknown History metoprolol tartrate 100 mg tablet 100 mg PO BID 03/11/22 Unknown History dicyclomine 10 mg capsule 10 mg PO TID 8 days #24 caps 05/10/24 Unknown Rx Allergy/AdvReac Type Severity Reaction Status Date / Time No Known Allergies Allergy Verified 05/10/24 14:26 Family History Father Irregular heart rhythm Mother Alzheimer's dementia Surgical History H/O section H/O total knee replacement Aortic valve replaced Social History household members: spouse Smoking Status: Never smoker alcohol intake: never substance use type: does not use ROS ROS ED ROS Narrative Constitutional: Denies any fevers, chills, headaches, lightheadedness, dizziness Eyes: Denies change in vision double vision blurry vision Cardiovascular: Denies chest pain or palpitations Respiratory: Denies coughing wheezing shortness of breath Abdomen: Complains of abdominal pain and diarrhea as noted above denies nausea or vomiting : Denies any painful urination, hematuria, polyuria Neurological: Denies numbness, weakness, tingling Musculoskeletal: Denies back pain Skin: Denies rashes or lesions EXAM Physical Exam Narrative Exam Narrative: General: Patient lying in bed rest comfortably did not appear to be in acute distress Head: Atraumatic, normocephalic Eyes: PERRL bilaterally, EOMI bilaterally, no conjunctival injection noted Neck: Soft, supple, trachea midline Cardiovascular: Regular rate and rhythm no murmurs gallops rubs noted Respiratory: Clear to auscultation bilaterally no rales rhonchi wheeze noted Abdomen: Soft, nondistended, patient has mild tenderness palpation diffusely throughout her abdomen no rebound or guarding on exam Extremities: +4/5 strength noted in the bilateral upper and lower extremities, no pedal edema noted exam Neurological: Patient follow commands knew that she was at [facility] date is 2023 Skin: Warm, dry, intact Const Vital Signs: 05/10/24 14:26 05/10/24 16:26 Temperature 97.4 F L Temperature Source Temporal Pulse Rate 70 73 Respiratory Rate 18 22 H Blood Pressure 131/70 H 130/78 H Blood Pressure Mean 90 95 Pulse Ox 97 94 Oxygen Delivery Method Room Air Room Air MDM MDM MDM Narrative Medical decision making narrative: Patient is a 84-year-old female who presented to the emerged part with chief complaint of abdominal pain. Patient will have a workup performed here on the differential diagnosis includes but not limited to viral gastroenteritis, small bowel obstruction, UTI, ACS. Once workup is obtained reviewed she will be reevaluated. Patient begin IV fluids, Zofran and Bentyl. Patient CBC reviewed and was largely unremarkable no leukocytosis noted white blood count normal 9.2, hemoglobin stable at 12, plate count normal at 209. Patient sodium normal at 137, potassium is 3.9, creatinine was elevated to 1.09 she did take Lasix earlier today prior to her arrival, AST and ALT are 27 and 20 respectively. Troponin normal at 10. Patient's EKG was reviewed and interpreted by myself showed atrial fibrillation with a rate of 69 bpm does have a history of atrial fibrillation on Eliquis. Patient's lipase normal at 27, urinalysis showed negative nitrates negative leukocyte esterase 0-5 white blood cells with 2+ bacteria this was sent for urine culture she will follow-up on this. Patient CT abdomen pelvis with IV contrast reviewed and showed no definitive acute or significant abnormality noted. It was noted that she has moderate to diffuse fecal retention. Patient was encouraged to use her MiraLAX that she has at home for bowel movements. On reevaluation the patient she states that she feels significantly improved and would like to go home at this point in time. Did discuss results with patient and family members at bedside. Patient was encouraged to follow-up with her primary care physician outpatient setting. She was encouraged to follow-up on the urine culture. She will be sent a prescription for Bentyl for her bowel spasms. She is encouraged return with worsening symptoms or concerns. All question concerns answered she was discharged home in stable condition. Lab Data Labs: Laboratory Results - last 24 hr 05/10/24 15:05 WBC 9.2 RBC 3.97 L Hgb 12.0 Hct 38.0 MCV 95.7 MCH 30.2 MCHC 31.6 L RDW Std Deviation 49.1 H RDW Coeff of Madeleine 14.0 Plt Count 209 MPV 9.1 Immature Gran % (Auto) 0.400 Neut % (Auto) 83.6 H Lymph % (Auto) 7.1 L [place] % (Auto) 7.4 Eos % (Auto) 0.9 Baso % (Auto) 0.6 Absolute Neuts (auto) 7.7 Absolute Lymphs (auto) 0.66 L Nucleated RBC % 0 Sodium 137 Potassium 3.9 Chloride 105 Carbon Dioxide 26.0 Anion Gap 6 BUN 18 Creatinine 1.09 H Estim Creat Clear Calc 39.35 Est GFR (MDRD) Af Amer 62 Est GFR (MDRD) Non-Af 51 L BUN/Creatinine Ratio 16.5 Glucose 127 H Calcium 8.9 Total Bilirubin 1.10 H AST 27 ALT 20 Alkaline Phosphatase 118 H Troponin I High Sens 10 Total Protein 7.3 Albumin 3.5 Globulin 3.8 Albumin/Globulin Ratio 0.9 Lipase 27 Urine Color Yellow Urine Clarity Clear Urine pH 5.0 Ur Specific [place] 1.015 Urine Protein Negative Urine Glucose (UA) Normal Urine Ketones Negative Urine Occult Blood 10 H Urine Nitrite Negative Urine Bilirubin Negative Urine Urobilinogen Normal Ur Leukocyte Esterase Negative Urine RBC 0-5 SEEN Urine WBC 0-5 SEEN Ur Squamous Epith Cells 0-5 SEEN Amorphous Sediment 1+ Urine Bacteria 2+ Urine Mucus 0 SEEN Radiography Diagnostic Testing: Clinical Impression(s) from Imaging Studies Abdomen/Pelvis CT 05/10/24 15:21 IMPRESSION: No definite acute or significant abnormality seen. Electronically Signed: Donis Siu MD at 16:49 EDT , Discharge Plan Triage Chief Complaint: Abd Pain ED Provider: Familia Stephens Dx/Rx/DC Orders Clinical Impression: Abdominal pain, Atrial fibrillation, Constipation Instructions: ED Constipation (Adult) Prescriptions: New dicyclomine 10 mg capsule 10 mg PO TID 8 Days Qty: 24 0RF No Action losartan 25 mg tablet PO spironolactone 25 mg tablet 25 mg PO DAILY Patient Comments: take 1 tablet by mouth once daily furosemide 20 mg tablet 20 mg PO BID Patient Comments: take 1 tablet by mouth every morning and 1 tablet IN THE AFTERNOON diltiazem HCl 120 mg capsule,extended release 24hr 120 mg PO DAILY metoprolol tartrate 100 mg tablet 100 mg PO BID Patient Comments: take 1 tablet by mouth twice a day pantoprazole 40 mg tablet,delayed release (DR/EC) 40 mg PO DAILY Patient Comments: take 1 tablet by mouth every morning cranberry 400 mg Capsule 400 mg PO DAILY cholecalciferol (vitamin D3) 125 mcg (5,000 unit) capsule 125 mcg PO DAILY Patient Comments: take 1 capsule by mouth once daily multivitamin Tablet 1 tab PO DAILY ascorbic acid (vitamin C) 500 mg Tablet 500 mg PO DAILY aspirin 81 mg Tablet,Chewable 81 mg PO DAILY acetaminophen [Tylenol] 325 mg Tablet 650 mg PO Q6H PRN PRN (Reason: PAIN 1-10) Qty: 0 0RF gabapentin 100 mg Capsule See Rx Instructions .ROUTE .COMPLEX Qty: 120 0RF Rx Instructions: 1 capsule at 8 AM and 4 Pm and 2 capsules at 9 PM Eliquis 5 mg Tablet 5 mg PO BID Qty: 60 0RF Primary Care Provider: Tucker Staples Referrals: Tucker Staples MD [Primary Care Provider] - Activity Restrictions/Additional Instructions: Follow-up your primary care physician outpatient setting. Follow-up with urine culture with your primary care physician. Take your MiraLAX that you have at home for constipation. Use the Bentyl that was sent to your pharmacy as prescribed. Return for worsening symptoms such as fevers, worsening pain, persistent nausea vomiting not tolerating oral intake or any other concerns Print Language: Malay Disposition Disposition: Home, Self Care
[2024-05-10 15:46] LABS: Amorphous Sediment 1+; Bacteria 2+ /hpf (None Seen); Red Blood Cells-Urine 0-5 SEEN /hpf (0-5); Squamous Epithelial Cells - UA 0-5 SEEN /hpf (5-10); White Blood Cells 0-5 SEEN /hpf (0-5)
[2024-05-10 15:58] LABS: ALB/GLOB Ratio 0.9 RATIO (0.9-2.4); AST(SGOT) 27 U/L (15-37); Alanine Aminotransfer ALT/SGPT 20 U/L (13-56); Albumin, Serum 3.5 g/dL (3.2-5.0); Alkaline Phosphatase 118 U/L (45-117); Anion Gap 6 (5-15); BUN 18 mg/dL (7-18); BUN/Creat Ratio 16.5 RATIO (10-20); Calcium,Total 8.9 mg/dL (8.5-10.1); Chloride 105 mmol/L (98-107); Creatinine, Serum 1.09 mg/dL (0.55-1.02); EST Glomerular Filtration Rate 51 mL/min (>60); Est Glom Filt Rate - Afr Amer 62 mL/min (>60); Estimated Creatinine Clearance 39.35 ml/min; Globulin 3.8 g/dL (2.2-4.2); Glucose 127 mg/dL (74-106); Lipase 27 U/L (13-75); Potassium 3.9 mmol/L (3.5-5.1); Protein, Total 7.3 g/dL (6.4-8.2); Sodium Level 137 mmol/L (136-145); Troponin-I HS 10 pg/mL (3.0-54.0)
[2024-05-10 16:26] VITALS: BP 130/78; PULSE 73; RESP 22; O2SAT 94
[2024-05-10 17:13] VITALS: BP 130/78; PULSE 74; RESP 20; TEMP 36.3; O2SAT 95
== END 2024-05-10 17:26 | disposition home or self-care (01) ==
PROVIDERS: Emergency Provider Emergency Medicine; PCP Family Medicine; Visit Provider Emergency Medicine
DX: K59.00 Constipation, unspecified (principal); I48.91 Unspecified atrial fibrillation; I10 Essential (primary) hypertension; Z79.01 Long term (current) use of anticoagulants; Z79.899 Other long term (current) drug therapy
CPT/HCPCS: 74177; 80053; 81001; 83690; 84484; 85025; 93005; 96361; 96374; 99282; J7030; Q9967; A4216; J2405

== ENCOUNTER → 2024-12-16 | Outpatient (CLI) | payer MEDICARE, OTHER, SELFPAY | END | disposition home or self-care (01) | LOC: LABSPEC 14:24 | PROVIDERS: PCP Family Medicine; Visit Provider Nurse Practitioner Acute Care | DX: K58.0 Irritable bowel syndrome with diarrhea (principal) | CPT/HCPCS: 87493 ==

== ENCOUNTER → 2025-01-02 | Outpatient (CLI) | payer MEDICARE, OTHER, SELFPAY ==
--- NOTE | 2025-01-02 09:15 | RAD_ITS ---
PROCEDURE: ABDOMEN SINGLE VIEW 01/02/2025 REASON FOR EXAM: SITZ MARKER DAY 3 TECHNIQUE: Single view abdomen. 3 total images to include the entire abdomen and pelvis FINDINGS: A group of approximately 6 sitz markers are seen projecting over the lower aspect of the right SI joint at the area of the cecum. No other markers identified. Status post cholecystectomy. No gaseous bowel dilation or significant appearing fecal load. Multilevel lumbar spondylosis/discogenic change. RAD/Abdomen Single View IMPRESSION: A group of approximately 6 sitz markers are seen projecting over the lower aspe ct of the right SI joint at the area of the cecum. No other markers identified. Reading Location: [id number]
== END | disposition home or self-care (01) ==
PROVIDERS: PCP Family Medicine; Referring Provider Nurse Practitioner Acute Care; Visit Provider Nurse Practitioner Acute Care
DX: R19.7 Diarrhea, unspecified (principal); K59.00 Constipation, unspecified; R10.9 Unspecified abdominal pain
CPT/HCPCS: 74018

== ENCOUNTER → 2025-01-04 | Outpatient (CLI) | payer MEDICARE, OTHER, SELFPAY ==
--- NOTE | 2025-01-04 10:00 | RAD_ITS ---
EXAM: XR Abdomen, 1 View CLINICAL INDICATION: DAY 5 SITZ MARKER TECHNIQUE: Frontal supine view of the abdomen/pelvis. COMPARISON: XR Abdomen dated 01/02/2025 FINDINGS: GASTROINTESTINAL TRACT: Unremarkable. No dilation. BONES/JOINTS: Unremarkable. No acute fracture. SOFT TISSUES: Multiple circular foreign body projects over the right hemipelvis. RAD/Abdomen Single View IMPRESSION: Multiple circular foreign body projects over the right hemipelvis. These have not changed significantly since the prior exam. Reading Location: [facility]
== END | disposition home or self-care (01) ==
LOC: RAD 09:56
PROVIDERS: PCP Family Medicine; Referring Provider Nurse Practitioner Acute Care; Visit Provider Nurse Practitioner Acute Care
DX: R19.7 Diarrhea, unspecified (principal); K59.00 Constipation, unspecified; R10.9 Unspecified abdominal pain
CPT/HCPCS: 74018

== ENCOUNTER → 2025-02-10 | Outpatient (CLI) | payer MEDICARE, OTHER, SELFPAY ==
--- NOTE | 2025-02-10 09:40 | RAD_ITS ---
PROCEDURE: ABDOMEN SINGLE VIEW 02/10/2025 REASON FOR EXAM: R/O CONSTIPATION TECHNIQUE: Single view abdomen. 2 total images to include the entire abdomen and pelvis COMPARISON: 01/04/2025 FINDINGS: No significant appearing fecal load. No gaseous distention of bowel. Status post cholecystectomy. Multilevel lumbar spondylosis/discogenic change with a transitional segment on the right at the lumbosacral junction and associated degenerative changes again seen. RAD/Abdomen Single View IMPRESSION: No significant appearing fecal load. Reading Location: [id number]
== END | disposition home or self-care (01) ==
LOC: RAD 09:24
PROVIDERS: PCP Family Medicine; Referring Provider Nurse Practitioner Acute Care; Visit Provider Nurse Practitioner Acute Care
DX: R10.9 Unspecified abdominal pain (principal); K59.00 Constipation, unspecified
CPT/HCPCS: 74018

== ENCOUNTER → 2025-03-09 | Outpatient (CLI) | payer MEDICARE, OTHER, SELFPAY ==
--- NOTE | 2025-03-09 13:35 | RAD_ITS ---
PROCEDURE: ABDOMEN SINGLE VIEW 03/09/2025 REASON FOR EXAM: R/O CONSTIPATION TECHNIQUE: Single view abdomen. COMPARISON: [facility], 02/10/2025. FINDINGS: The bowel gas pattern is nonobstructive. There are no abnormal soft tissue calcifications. There are cholecystectomy clips in the right upper quadrant of the abdomen. There is multilevel degenerative disc disease of the lumbar spine. RAD/Abdomen Single View IMPRESSION: No evidence of acute abdominal pathology. Reading Location: [id number]
== END | disposition home or self-care (01) ==
LOC: RAD 13:34
PROVIDERS: PCP Family Medicine; Referring Provider Nurse Practitioner Acute Care; Visit Provider Nurse Practitioner Acute Care
DX: R10.9 Unspecified abdominal pain (principal); R19.7 Diarrhea, unspecified; R14.3 Flatulence; R14.1 Gas pain; R14.2 Eructation
CPT/HCPCS: 74018